=== PATIENT | female | born 1955 | race Caucasian/White ===

== ENCOUNTER 2019-05-12 19:11 | Outpatient (CLI) | payer MEDICARE, SELFPAY ==
[2019-05-12 20:02] LABS: Basophils # 0.1 10^3/uL (0.0-0.1); Basophils % 0.6 %; Eosinophils # 0.3 10^3/uL (0.0-0.8); Eosinophils % 3.6 %; Hematocrit 38.1 % (37.0-47.0); Hemoglobin 12.4 g/dL (11.5-15.3); Lymphocytes # 1.7 10^3/uL (0.8-4.8); Lymphocytes % 20.3 %; Mean Corpuscular HGB Conc 32.5 g/dL (30.0-36.0); Mean Corpuscular Hemoglobin 29.7 pg (28.0-34.0); Mean Corpuscular Volume 91.1 fL (81-99); Mean Platelet Volume 10.7 fL (7.4-10.4); Monocytes # 0.7 10^3/uL (0.2-0.9); Monocytes % 8.2 %; Neutrophils # 5.8 10^3/uL (1.8-7.7); Neutrophils % 67.1 %; Nucleated Red Blood Cells % 0 %; Platelet Count 264 10^3/cmm (130-400); Red Blood Count 4.18 10^6/uL (4.1-5.3); Red Cell Distribution Width 12.8 % (12.1-15.1); White Blood Count 8.6 10^3/uL (4.0-10.0)
[2019-05-12 20:05] LABS: Alanine Aminotransferase 17 U/L (0-33); Albumin Level 4.7 g/dL (3.5-5.2); Alkaline Phosphatase 129 IU/L (35-105); Anion Gap 19.7 (5-19); Aspartate Amino Transferase 20 U/L (0-32); Blood Urea Nitrogen 12 mg/dL (8-23); C Reactive Protein 6.5 mg/L (0.0-4.9); Calcium 10.6 mg/Dl (8.8-10.2); Carbon Dioxide 25 mmol/L (22-29); Chloride 97 mmol/L (98-107); Creatine Phosphokinase 57 U/L (26-192); Globulin 2.7 g/dL (1.3-4.6); Glucose 109 mg/dL (74-106); Potassium 4.7 mmol/L (3.5-5.1); Sodium 137 mmol/L (136-145); Total Bilirubin 0.3 mg/dL (0.15-1.2); Total Protein 7.4 g/dL (6.6-8.7)
[2019-05-12 20:56] LABS: Erythrocyte Sedimentation Rate 27 mm/hr (0-15)
== END 2019-05-12 19:12 | disposition home or self-care (01) ==
LOC: LAB 19:15
PROVIDERS: Family Provider Family Medicine; PCP Family Medicine; Visit Provider Orthopaedic Surgery Hand Surgery
DX: M86.641 Other chronic osteomyelitis, right hand (principal)
CPT/HCPCS: 80053; 82550; 85025; 85651; 86140

== ENCOUNTER → 2019-06-11 15:54 | Outpatient (BNVA) | payer MEDICARE, SELFPAY | PROVIDERS: Family Provider Family Medicine; PCP Family Medicine; Visit Provider Social Worker | DX: F33.2 Major depressive disorder, recurrent severe without psychotic features (principal); F43.12 Post-traumatic stress disorder, chronic | CPT/HCPCS: 90834 ==

== ENCOUNTER 2019-06-18 06:00 | Outpatient (RCR) | payer MEDICARE, SELFPAY | END 2019-07-04 23:59 | disposition home or self-care (01) | LOC: GPT 06:00 | PROVIDERS: Family Provider Family Medicine; PCP Family Medicine; Referring Provider Family Medicine; Visit Provider Family Medicine | DX: M79.669 Pain in unspecified lower leg (principal); M25.669 Stiffness of unspecified knee, not elsewhere classified; R26.89 Other abnormalities of gait and mobility; Z91.81 History of falling | CPT/HCPCS: 97032; 97110; 97140; 97161; 97530 ==

== ENCOUNTER 2019-07-05 06:00 | Outpatient (RCR) | payer MEDICARE, SELFPAY | END 2019-08-04 23:59 | disposition home or self-care (01) | LOC: GPT 06:00 | PROVIDERS: Family Provider Family Medicine; PCP Family Medicine; Referring Provider Family Medicine; Visit Provider Family Medicine | DX: M21.6X1 Other acquired deformities of right foot (principal) | CPT/HCPCS: 97110; 97112; 97116; G0283 ==

== ENCOUNTER → 2019-07-17 11:07 | Outpatient (BNVA) | payer MEDICARE, SELFPAY | PROVIDERS: Family Provider Family Medicine; PCP Family Medicine; Visit Provider Nurse Practitioner | DX: F43.12 Post-traumatic stress disorder, chronic (principal); F41.0 Panic disorder [episodic paroxysmal anxiety]; F41.1 Generalized anxiety disorder | CPT/HCPCS: 99214 ==

== ENCOUNTER 2019-08-31 09:40 | Outpatient (RCR) | payer MEDICARE, SELFPAY | END 2019-09-03 23:59 | disposition home or self-care (01) | LOC: GPT 09:40 | PROVIDERS: Family Provider Family Medicine; PCP Family Medicine; Referring Provider Family Medicine; Visit Provider Family Medicine | DX: M21.6X1 Other acquired deformities of right foot (principal) | CPT/HCPCS: 81000 ==

== ENCOUNTER → 2019-09-02 08:09 | Outpatient (BNVA) | payer MEDICARE, SELFPAY | PROVIDERS: Family Provider Family Medicine; PCP Family Medicine; Visit Provider Nurse Practitioner | DX: F41.0 Panic disorder [episodic paroxysmal anxiety] (principal); F43.12 Post-traumatic stress disorder, chronic | CPT/HCPCS: 99213 ==

== ENCOUNTER 2019-09-21 15:20 | Outpatient (CLI) | payer MEDICARE, SELFPAY ==
--- NOTE | 2019-09-21 15:35 | CT_ITS ---
WS: [id number] CT CHEST WITHOUT INTRAVENOUS CONTRAST HISTORY: INTERSTITIAL LUNG DISEASE TECHNIQUE: Contiguous 5 mm axial imaging performed on the thorax. Coronal and sagittal reformats are submitted. All CT scans at [facility] use at least one of these dose optimization techniq ues: automated exposure control; mA and/or kV adjustment per patient size (includes targeted exams wh ere dose is matched to clinical indication); or iterative reconstruction. CONTRAST: None DLP: 1148.09 mGy-cm. COMPARISON: 07/14/2017 and 04/12/2015 Lungs and central airway: Significant improvement in aeration of both lungs since 07/14/2017. Resolved pleural effusions with improving areas of atelectasis. There is still thin bandlike areas of chronic scarring or atelectasis in the lower lobes bilaterally. Very minimal distal airways interstitial thi ckening. Long-term stability of a 3 mm nodule RIGHT lower lobe, image 37 of series 3. No pneumonia. N o fluid overload. Pleura: Normal. No pleural effusion. Heart and pericardium: Extensive calcification along the mitral annular valve plane. Cardiac chamber size is normal. Mediastinum and eli: No mediastinum or hilar adenopathy. Vessels: Normal size aortic and pulmonary artery. No coronary artery calcifications. Chest wall and lower neck: No soft tissue masses. Upper abdomen: Negative. Osseous structures: Increase in thoracic kyphosis. Anterior contiguous bridging osteophytes throughou t a long segment of the thoracic spine. Lucencies in several of the contiguous vertebral bodies has b een present over multiple prior years and probably related osteopenia and osteophyte formation. CT/CT chest wo con 53215 IMPRESSION: 1. Improved aeration throughout both lungs with resolved pleural effusions sin ce 07/14/2017. 2. Minimal, subsegmental linear scarring or atelectasis in the lower lungs kenji aterally. 3. No honeycombing or significant interstitial thickening or bronchiectasis id entified. 4. Mitral annular calcification.
== END 2019-09-21 15:21 | disposition home or self-care (01) ==
LOC: RADWPI 15:24
PROVIDERS: Family Provider Family Medicine; PCP Family Medicine; Visit Provider Family Medicine
DX: J84.9 Interstitial pulmonary disease, unspecified (principal)
CPT/HCPCS: 71250

== ENCOUNTER → 2019-09-23 13:50 | Outpatient (BNVA) | payer MEDICARE, SELFPAY | PROVIDERS: PCP Family Medicine; Visit Provider Family Medicine | DX: E11.42 Type 2 diabetes mellitus with diabetic polyneuropathy (principal) | CPT/HCPCS: 83036 ==

== ENCOUNTER → 2019-11-16 08:48 | Outpatient (BNVA) | payer MEDICARE, SELFPAY | PROVIDERS: PCP Family Medicine; Visit Provider Internal Medicine Cardiovascular Disease | DX: I27.20 Pulmonary hypertension, unspecified (principal) | CPT/HCPCS: 80048; 85025 ==

== ENCOUNTER 2019-11-19 | Day surgery (SDC) | payer MEDICARE, SELFPAY | END 2019-11-19 23:00 | disposition home or self-care (01) | LOC: CCL 12-28 08:54 | PROVIDERS: PCP Family Medicine; Visit Provider Internal Medicine Cardiovascular Disease | DX: R50.9 Fever, unspecified (principal); R06.02 Shortness of breath; E66.01 Morbid (severe) obesity due to excess calories | CPT/HCPCS: 87400 ==

== ENCOUNTER → 2019-12-16 11:06 | Outpatient (BNVA) | payer MEDICARE, SELFPAY | PROVIDERS: PCP Family Medicine; Visit Provider Internal Medicine | DX: R06.02 Shortness of breath (principal); I27.20 Pulmonary hypertension, unspecified | CPT/HCPCS: 87635 ==

== ENCOUNTER 2019-12-21 08:55 | Day surgery (SDC) | payer MEDICARE, SELFPAY ==
[2019-12-21] VITALS (22 sets, daily range): BP systolic 135–168; BP diastolic 74–103; PULSE 58–73; RESP 11–23; TEMP 36.4; O2SAT 92–98; BMI 56.3
--- NOTE | 2019-12-21 10:00 | XACV_ITS ---
Exam Room: [facility] Ht: 163 cm Wt: 141 kg BSA: 2.61 m2 Gender: Female : 1955 Any Known Allergies: Other Exam Priority: Routine Procedure(s): Procedure Description: Diagnostic procedure Procedure Description: Right Heart Catheterization Procedure Description: O2 saturation Diagnostic Cath Status: Elective PCI Status: Elective Conclusions Right heart catheterizationRA mean 24 mmHgRV 67-17 mmHgPA mean 52 mmHgPulmonary capillary wedge pressureCardiac index 1.5Cardiac output 3.57Stroke-volume 57.83No significant shunt or step-up notedSevere pulmonary hypertension with no reversibility. Pressures Phase:Rest RV : 67 mmHg / 17 mmHg / @ 6:47:00 AM PA : 70 mmHg / 35 mmHg ( 52 mmHg ) @ 6:27:00 AM 70 mmHg / 36 mmHg ( 51 mmHg ) @ 6:30:00 AM 68 mmHg / 35 mmHg ( 50 mmHg ) @ 6:39:00 AM 65 mmHg / 31 mmHg ( 46 mmHg ) @ 6:43:00 AM 65 mmHg / 33 mmHg ( 47 mmHg ) @ 6:46:00 AM RA : a wave = v wave = mean = 24 mmHg @ 6:50:00 AM O2 Content Phase:Rest PA : O2 Content O2: 64.5 % @ 6:30:00 AM Saturations Phase:Rest AO : 99 % @ 6:27:00 AM RA : 64 % @ 6:39:00 AM RV : 65 % @ 6:43:00 AM PA : 65 % @ 6:30:00 AM Cardiac Output Phase:Rest Luigi : 4 l/min @ 6:27:00 AM Luigi Cardiac Index: 2 L/min/m2 @ 6:27:00 AM Clinical Evaluation EBL: 5mL-10mL Procedural Details Procedure Consent Obtained. Pre-Procedure Time Out. Identified patient by full name and date of as verbalized by the patient/guarantor. Does the consent match the physician's order: Yes. Accurate & Complete Informed Consent: Yes. Inpatient/Outpatient History & Physical on Chart: Yes. If H&P is completed, is and addenduem needed: No; If yes, is the addendum complete: N/A. Visualize and Verify Site with Patient/Guarantor: N/A. Relevant Radiology Images available: Yes. Pre-op teaching completed and patient verbalized understanding. The risks, benefits, and alternatives of sedation and/or procedure were discussed by physician. The patient agrees to continue. Procedure started. Correct patient, site and procedure confirmed by cath team. Current diagnosis: Shortness of breath. PERRLA. Strong, equal hand scrap piler bilaterally. Lungs clear x 5 lobes. IV Site on Arrival: 20 gauge in the right anticubital. IV Site on Arrival: 20 gauge in the left anticubital. IV Fluids: 0.9% NaCl at KVO. 0 mL infused prior to clinical laboratory medical director. Pre Procedural Pulses: bilateral dorsalis pedis was 2+. Pre Procedural Pulses: bilateral posterior tibial was 2+. Pre Procedural Pulses: bilateral radial was 3+. Oxygen started at 2liters/min via nasal canula. right brachial was prepped with chloroprep then draped in the usual sterile fashion. Physician notified. Baseline sample Acquired. HR: 62 BPM. 20G in the Right AC out. Physician arrived. Physician scrubbed in. Immediate Pre-Procedure Time Out. Correct Patient: Yes; Correct Procedure: Yes; Correct Site: Yes; Correct Patient Position: Yes; Correct Supplies: Yes; Dried Flammable Prep: Yes; Blood Products Available: No;. Equipment: 6F - Radial. ACIST Manifold Kit Model BT 2000. Cardiac Cath Pack. Heparinized Saline (2 units/mL), 1000 mL bag. Venous access obtained. [place] A MON catheter inserted. Oximetry samples were obtained. Normal venous range: 60-85%. Normal arterial range: 95-100%. Pressure measurements obtained. Sheath(s) removed and manual pressure held until hemostasis was achieved. Sterile 4x4 and Op-site applied to the puncture site. No oozing or hematoma noted. Post sheath removal instructions were given and the patient verbalized understanding. Post Procedure: Pulses reassessed and unchanged. PERRLA. Strong, equal hand scrap piler bilaterally. No VTE prophylaxis required. Medication's Wasted: Lidocaine 1% = 18 mL. Medication's Wasted: Heparin = 1000 units. Total IV fluids: 100 mL. Post-op diagnosis: Pulmonary Hypertension. Complications: None. Estimated blood loss: 5mL-10mL. Procedure completed. Vital chart was stopped. Medication's Wasted: Other = Fentanyl 25mcg. Patient transferred by wheelchair to 1st floor. Site: Right Brachial Vein Sheath Size: 6 Fr Hemostasis Success: Unsuccessful Procedure Medications Start: 11:02 AM Stop: 11:02 AM Medication: Fentanyl Amount: 50 mcg Route: I.V. Start: 11:06 AM Stop: 11:06 AM Medication: Versed Amount: 1 mg Route: I.V. Start: 11:22 AM Stop: 11:22 AM Medication: Versed 1 mg and Fentanyl 25 mcg Amount: 1 Route: I.V. Start: 11:36 AM Stop: 11:36 AM Medication: Nitrogylcerin Amount: 2 Sprays Route: S.L. Start: 11:40 AM Stop: 11:40 AM Medication: Nitrogylcerin Amount: 2 Sprays Route: S.L. Start: 11:43 AM Stop: 11:43 AM Medication: Nitrogylcerin Amount: 2 Sprays Route: S.L. I, the attending physician, have reviewed and verified all procedure medications. Yes, all medications given per verbal order History/Risk Factors Hypertension: Yes Dyslipidemia: Yes Diabetic Therapy: Oral Peripheral Arterial Disease (PAD): No Myocardial Infarction (CA): No Obesity: Yes Renal Disease: No Tobacco Use: Never Prior Interventions PCI: No CABG: No Valve Surgery: No Report Signatures Finalized by:Dulce Oreilly MD on 01/04/2020 7:45:15 PM
--- NOTE | 2019-12-21 12:05 | W.PM.OPSUD ---
Surgery/Procedure H&P Update DATE OF PROCEDURE: December 21, 2019 DATE H&P PERFORMED: 10/01/19 H&P UPDATE INFORMATION: I have examined patient prior to procedure, No changes to prior documentation and Changes to prior documentation as noted here PREOP DIAGNOSIS: Pulmonary hypertension PLANNED PROCEDURE: Operation Date: 12/21/19 10:00 Proposed Procedures p Cardiac Catheterization, hypertention(Right) - Dulce Oreilly MD PATIENT REASSESSED PRIOR TO SEDATION, WITH NO CHANGE NOTED: Yes PHYSICAL EXAM: alert, oriented x 3, clear to auscultation bilaterally and regular rate & rhythm AIRWAY EVAL/ANESTHESIA PLAN: ASA II, Risks, benefits & alternatives of sedation and/or procedure discussed and Patient agrees to continue as planned
--- NOTE | 2019-12-21 12:14 | PC.NURSE ---
patient back to room from procedure alert oriented and dressing to right ac is clean dry and intact. contacted Dr campos for dietary orders instructions for cardiac diet now.
--- NOTE | 2019-12-21 14:52 | PC.NURSE ---
Patient discharged home, discharge instructions given and explained, patient verbalized understanding of all instructions including follow up appointments. Iv dc'd cath intact min bleeding noted dressing placed. Patient assisted to wheel chair and accompanied to private vehicle with all belongings and discharge instructions in hand. Patient alert oriented and in stable condition.
--- NOTE | 2020-01-05 20:26 | W.PM.OPSFHP ---
Same Day Surgery H&P Indication for Procedure/HPI DATE OF PROCEDURE: December 21, 2019 CHIEF COMPLAINT/INDICATIONFOR SURGICAL PROCEDURE: Pulmonary hypertension PREOP DIAGNOSIS: Pulmonary hypertension PLANNED PROCEDRUE: Operation Date: 12/21/19 10:00 Proposed Procedures p Cardiac Catheterization, hypertention(Right) - Dulce Oreilly MD Medications/Allergies* Home Medications Medication Instructions Recorded Confirmed Type albuterol sulfate 2.5 mg INHALATION Q4H PRN 05/17/19 12/31/19 History aspirin 325 mg tablet 325 mg PO DAILY tab 05/17/19 12/31/19 History coenzyme [id number] E 100 mg-100 cap PO DAILY cap 05/17/19 12/31/19 History unit capsule isosorbide mononitrate 30 mg 30 mg PO BID tab 05/17/19 12/31/19 History tablet,extended release 24 hr metformin 500 mg tablet 500 mg PO TID 05/17/19 12/31/19 History metoprolol tartrate 50 mg tablet 50 mg PO BID 05/17/19 12/31/19 History naproxen sodium 220 mg capsule 220 mg PO BID PRN 05/17/19 12/31/19 History prenat.vits,dylan,flg-gufg-rsaix 1 tab PO DAILY tab 05/17/19 12/31/19 History sitagliptin 100 mg tablet 100 mg PO DAILY tab 05/17/19 12/31/19 History Allergies/Adverse Reactions Allergy/AdvReac Type Severity Reaction Status Date / Time meperidine Allergy Unknown Unknown Verified 12/31/19 13:57 amobarbital Allergy Unknown Verified 12/31/19 13:57 hydroxychloroquine Allergy Unknown Verified 12/31/19 13:57 [From Plaquenil] Penicillins Allergy Unknown Verified 12/31/19 13:57 sulfamethoxazole Allergy ALGY-Rash Verified 12/31/19 13:57 [From Bactrim] trimethoprim [From Bactrim] Allergy ALGY-Rash Verified 12/31/19 13:57 aspartame AdvReac Unknown ADR-Headach Verified 12/31/19 13:57 e Pertinent History/Comorbid Conditions* Medical History (Updated 09/03/19 @ 13:00 by Sveta Zhang NP) Anemia Anxiety disorder Bilateral leg cramps CAD (coronary artery disease) Cardiac arrhythmia Chest pain CHF (congestive heart failure) Diabetes Diabetic polyneuropathy Diastolic dysfunction Enrolled in chronic care management GERD (gastroesophageal reflux disease) Hiatal hernia HTN (hypertension) Hx MRSA infection Hyperlipidemia Interstitial lung disease Morbid obesity Myalgia Panic disorder Post-traumatic stress disorder, chronic Pulmonary hypertension Restless leg syndrome Rheumatoid arthritis Shortness of breath Sleep apnea TIA (transient ischemic attack) Surgical History (Updated 07/07/19 @ 11:07 by Nikki Bray MD) S/P appendectomy S/P knee surgery Multiple S/P tubal ligation Family History (Updated 05/17/19 @ 22:06 by Glory Sam RN) Father, Age 93 - CHF Mother, age 91 Diabetes Mother Grandmother Maternal Heart disease Mother Father Cancer Mother Breast, cervical, lung Social History Smoking and tobacco status: never smoked Alcohol intake: current Alcohol intake frequency: holidays/special occasions only Pertinent Exam Findings alert, oriented x 3, clear to auscultation bilaterally and regular rate & rhythm Recommendations Surgery/Procedure today Coding Level of Care Code Acute Preservative Filler Machine Operator for Shaun Ocampo
== END 2019-12-21 14:55 | disposition home or self-care (01) ==
LOC: CCL 09:01 → CSU 09:14
PROVIDERS: PCP Family Medicine; Visit Provider Internal Medicine Cardiovascular Disease
DX: I27.20 Pulmonary hypertension, unspecified (principal); E78.5 Hyperlipidemia, unspecified; I25.10 Atherosclerotic heart disease of native coronary artery without angina pectoris; F41.9 Anxiety disorder, unspecified; I11.0 Hypertensive heart disease with heart failure; E11.42 Type 2 diabetes mellitus with diabetic polyneuropathy; I50.9 Heart failure, unspecified; K21.9 Gastro-esophageal reflux disease without esophagitis; F43.12 Post-traumatic stress disorder, chronic; G25.81 Restless legs syndrome; M06.9 Rheumatoid arthritis, unspecified; Z86.73 Personal history of transient ischemic attack (TIA), and cerebral infarction without residual deficits; Z79.84 Long term (current) use of oral hypoglycemic drugs; Z79.82 Long term (current) use of aspirin; Z79.52 Long term (current) use of systemic steroids; Z79.899 Other long term (current) drug therapy
CPT/HCPCS: 12345; 93451; C1751; C1769; C1894; J1644; J2250; J3010; J7030

== ENCOUNTER → 2019-12-31 14:58 | Outpatient (BNVA) | payer MEDICARE, SELFPAY | PROVIDERS: PCP Family Medicine; Visit Provider Nurse Practitioner Family | DX: I27.20 Pulmonary hypertension, unspecified (principal) | CPT/HCPCS: 80048 ==

== ENCOUNTER → 2020-02-09 16:06 | Outpatient (BNVA) | payer MEDICARE, SELFPAY | PROVIDERS: PCP Family Medicine; Visit Provider Nurse Practitioner Family | DX: Z20.828 Contact with and (suspected) exposure to other viral communicable diseases (principal); R06.02 Shortness of breath; R50.9 Fever, unspecified; R35.0 Frequency of micturition | CPT/HCPCS: 81000; 87635 ==

== ENCOUNTER → 2020-02-17 09:50 | Outpatient (BNVA) | payer MEDICARE, SELFPAY | PROVIDERS: PCP Family Medicine; Visit Provider Family Medicine | DX: E11.9 Type 2 diabetes mellitus without complications (principal) | CPT/HCPCS: 83036 ==

== ENCOUNTER → 2020-03-10 09:44 | Outpatient (BNVA) | payer MEDICARE, SELFPAY | PROVIDERS: PCP Family Medicine; Visit Provider Internal Medicine Cardiovascular Disease | DX: Z11.59 Encounter for screening for other viral diseases (principal); I27.20 Pulmonary hypertension, unspecified; R06.02 Shortness of breath | CPT/HCPCS: 87635 ==

== ENCOUNTER 2020-03-14 10:34 | Outpatient (CLI) | payer MEDICARE, SELFPAY ==
--- NOTE | 2020-03-14 11:15 | XR_ITS ---
WS: [id number] XR chest 2V* [id number] REASON FOR EXAM: Shortness of breath FINDINGS: The chest is unchanged compared to previous examination of 02/03/2019. Mild tortuosity of the thoracic aorta. Heart size is normal. Calcified granulomatous disease in both hemithoraces. No active pulmonary parenchymal or pleural dise ase. Mild changes of degenerative spondylosis in the mid thoracic spine. Multiple old healed rib fractures on the left. Laxity in the clinical humeral joints. XR/XR chest 2V* [id number] IMPRESSION: No acute abnormality.
--- NOTE | 2020-03-14 12:00 | NM_ITS ---
WS: [id number] NUCLEAR MEDICINE LUNG VENTILATION AND PERFUSION CLINICAL INFORMATION: phtn TECHNIQUE: Ventilation/perfusion lung scan with 32.1 mCi technetium 99m DTPA and 4.8 mCi technetium 9 9m MAA. COMPARISON: None. FINDINGS: Normal symmetric radiotracer uptake on the perfusion weighted images. Central radiotracer deposition on the ventilatory imaging consistent with chronic emphysematous changes as seen on the radiograph. N o mismatched ventilation/perfusion defects to suggest pulmonary embolus. No other significant finding s. NM/NM pul vent and perfus* [id number] IMPRESSION: 1. Low probability for pulmonary embolus.
== END 2020-03-14 10:35 | disposition home or self-care (01) ==
LOC: NM 10:38
PROVIDERS: PCP Family Medicine; Visit Provider Internal Medicine Cardiovascular Disease
DX: I27.20 Pulmonary hypertension, unspecified (principal); R06.02 Shortness of breath
CPT/HCPCS: 71046; 78014; A9540; A9567

== ENCOUNTER 2020-03-15 09:13 | Outpatient (CLI) | payer MEDICARE, SELFPAY ==
--- NOTE | 2020-03-15 10:09 | PC.RESP ---
Patient unable to do 6 minute walk at this time due to a sore foot.
--- NOTE | 2020-03-15 10:31 | PFTS_ITS ---
Date of Study:03/15/20 Date of Dictation: MECHANICS: Forced vital capacity (FVC) is normal. Forced expiratory volume in one second (FEV1) is normal. FEV1/FVC is normal. FLOW VOLUME LOOP: Normal. LUNG VOLUMES: Total lung capacity (TLC) is normal. Residual volume (RV) is normal. DIFFUSING CAPACITY FOR CARBON MONOXIDE: Normal. INTERPRETATION: The pulmonary function tests are normal. The lung volumes are normal. Gas exchange (DLCO) is normal. MTDD
== END 2020-03-15 09:14 | disposition home or self-care (01) ==
LOC: RT 09:19
PROVIDERS: PCP Family Medicine; Visit Provider Internal Medicine Cardiovascular Disease
DX: I27.20 Pulmonary hypertension, unspecified (principal); R06.02 Shortness of breath
CPT/HCPCS: 94010; 94726; 94729

== ENCOUNTER → 2020-04-05 09:00 | Outpatient (BNVA) | payer MEDICARE, SELFPAY | PROVIDERS: PCP Family Medicine; Visit Provider Internal Medicine Medical Oncology | DX: D50.8 Other iron deficiency anemias (principal) | CPT/HCPCS: 80053; 82728; 83550; 85025 ==

== ENCOUNTER → 2020-04-12 13:27 | Outpatient (BNVA) | payer MEDICARE, SELFPAY | PROVIDERS: PCP Family Medicine; Visit Provider Family Medicine | DX: S62.609A Fracture of unspecified phalanx of unspecified finger, initial encounter for closed fracture (principal); W19.XXXA Unspecified fall, initial encounter | CPT/HCPCS: 73130 ==

== ENCOUNTER 2020-04-15 12:13 | Outpatient (CLI) | payer MEDICARE, SELFPAY | END 2020-04-15 12:14 | disposition home or self-care (01) | LOC: SPT 12:15 | PROVIDERS: PCP Family Medicine; Visit Provider Orthopaedic Surgery | DX: Z46.89 Encounter for fitting and adjustment of other specified devices (principal); M21.6X1 Other acquired deformities of right foot | CPT/HCPCS: 97760; L3984 ==

== ENCOUNTER 2020-04-25 09:39 | Outpatient (CLI) | payer MEDICARE, SELFPAY ==
--- NOTE | 2020-04-25 10:45 | CT_ITS ---
WS: [id number] CT CHEST TECHNIQUE: Noncontrast CT of the chest with coronal and sagittal reformatted images. CLINICAL INFORMATION: R93.89 - Abnormal findings on diagnostic imaging of other specified body struct ures COMPARISON: CT chest September 21, 2019 DLP: 744.[address] scans at [facility] use at least one of these dose optimization techniques: automat ed exposure control; mA and/or kV adjustment per patient size (includes targeted exams where dose is matched to clinical indication); or iterative reconstruction. FINDINGS: Both lungs are well aerated. No acute pulmonary infiltrates. Subsegmental atelectasis in the right gr eater than left lower lobes. No acute pulmonary infiltrates. No suspicious pulmonary parenchymal opac ities. No focal consolidation or pleural fluid. No mediastinal or hilar lymphadenopathy. Mitral annul ar calcification. No axillary lymphadenopathy. Adrenal glands are normal. A few chronic rib fractures with callus formation.Moderate thoracic kyphos is. Chronic ankylosis thoracic spine. CT/CT chest wo con [id number] IMPRESSION: 1. Subsegmental atelectasis in the lung bases. No acute pulmonary infiltrates. 2. No mediastinal or hilar lymphadenopathy lymphadenopathy. 3. Mitral annular calcification. 4. Thoracic curve convex right with thoracic kyphosis. Chronic ankylosis thora cic spine.
== END 2020-04-25 09:40 | disposition home or self-care (01) ==
LOC: RADWPI 09:43
PROVIDERS: PCP Family Medicine; Visit Provider Family Medicine
DX: R93.89 Abnormal findings on diagnostic imaging of other specified body structures (principal); R91.1 Solitary pulmonary nodule; J98.11 Atelectasis; M40.294 Other kyphosis, thoracic region
CPT/HCPCS: 71250

== ENCOUNTER → 2020-04-27 08:42 | Outpatient (BNVA) | payer MEDICARE, SELFPAY | PROVIDERS: PCP Family Medicine; Visit Provider Family Medicine | DX: Z20.828 Contact with and (suspected) exposure to other viral communicable diseases (principal) | CPT/HCPCS: 87635 ==

== ENCOUNTER → 2020-05-17 14:33 | Outpatient (BNVA) | payer MEDICARE, SELFPAY | PROVIDERS: PCP Family Medicine; Visit Provider Orthopaedic Surgery | DX: S62.605D Fracture of unspecified phalanx of left ring finger, subsequent encounter for fracture with routine healing (principal); S62.607D Fracture of unspecified phalanx of left little finger, subsequent encounter for fracture with routine healing; X58.XXXD Exposure to other specified factors, subsequent encounter | CPT/HCPCS: 73130 ==

== ENCOUNTER → 2020-05-18 14:33 | Outpatient (BNVA) | payer MEDICARE, SELFPAY | PROVIDERS: PCP Family Medicine; Visit Provider Family Medicine | DX: S46.011A Strain of muscle(s) and tendon(s) of the rotator cuff of right shoulder, initial encounter (principal); X58.XXXA Exposure to other specified factors, initial encounter | CPT/HCPCS: 73030 ==

== ENCOUNTER 2020-05-24 06:00 | Outpatient (RCR) | payer MEDICARE, SELFPAY | END 2020-06-05 23:59 | disposition home or self-care (01) | LOC: GOT 06:00 | PROVIDERS: PCP Family Medicine; Referring Provider Orthopaedic Surgery; Visit Provider Orthopaedic Surgery | DX: M25.512 Pain in left shoulder (principal); S62.605D Fracture of unspecified phalanx of left ring finger, subsequent encounter for fracture with routine healing; S62.607D Fracture of unspecified phalanx of left little finger, subsequent encounter for fracture with routine healing | CPT/HCPCS: 97110; 97140; 97166 ==

== ENCOUNTER 2020-05-27 11:55 | Outpatient (CLI) | payer MEDICARE, SELFPAY ==
--- NOTE | 2020-05-27 16:45 | MR_ITS ---
WS: [id number] MRI LEFT SHOULDER HISTORY: M25.519 - Pain in unspecified shoulder COMPARISON: 09/03/2018 TECHNIQUE: Multiplanar sequences of the shoulder joint are submitted. Cortical defect in the posterior superior humeral head. This is similar to the prior study from 019 and probably from an old fracture or dislocation. There is a small amount of residual edema at th e cortical defect. There is very mild fraying along the articular surface of the supraspinatus tendon and thickening of the distal tendon. Consistent with tendinopathy. Cannot confirm tear. No tendon re traction or edema. There is very mild atrophy of the supraspinatus muscle. Small amount of fluid in t he subscapularis recess. Moderate AC joint hypertrophy and degenerative changes involving the distal clavicle. There is increa sed T2 signal along the AC ligament. No os acromion. Biceps tendon is in normal position. Humeral hea d is high riding from the glenoid. No labral tear is identified. Suspect small loose bodies in the reina int effusion superior to the labrum. MR/MR shoulder LT wo con* [id number] IMPRESSION: 1. Cortical concave defect in the posterior lateral humeral head. This is in t he area of the previously described fracture. No acute fracture. This may be Hi ll-Sachs lesion. No labral abnormality. 2. Mildly high riding humeral head. 3. Tendinopathy and fraying of the distal supraspinatus tendon with no definit e tear. 4. Suspect small loose bodies in the joint fluid superior to the labrum. 5. Mild AC joint arthritis with mild AC ligament sprain.
== END 2020-05-27 11:56 | disposition home or self-care (01) ==
PROVIDERS: PCP Family Medicine; Visit Provider Family Medicine
DX: M13.812 Other specified arthritis, left shoulder (principal); S43.52XA Sprain of left acromioclavicular joint, initial encounter; X58.XXXA Exposure to other specified factors, initial encounter; R06.02 Shortness of breath; I50.9 Heart failure, unspecified
CPT/HCPCS: 73221; 80048; 83735; 83880

== ENCOUNTER 2020-06-06 06:00 | Outpatient (RCR) | payer MEDICARE, SELFPAY | END 2020-07-03 23:59 | disposition home or self-care (01) | LOC: GOT 06:00 | PROVIDERS: PCP Family Medicine; Referring Provider Orthopaedic Surgery; Visit Provider Orthopaedic Surgery | DX: S62.609D Fracture of unspecified phalanx of unspecified finger, subsequent encounter for fracture with routine healing (principal) | CPT/HCPCS: 73630; 97110; 97140 ==

== ENCOUNTER 2020-07-04 06:00 | Outpatient (RCR) | payer MEDICARE, SELFPAY | END 2020-08-03 23:59 | disposition home or self-care (01) | LOC: GOT 06:00 | PROVIDERS: PCP Family Medicine; Referring Provider Orthopaedic Surgery; Visit Provider Orthopaedic Surgery | DX: S62.605D Fracture of unspecified phalanx of left ring finger, subsequent encounter for fracture with routine healing (principal); S62.607D Fracture of unspecified phalanx of left little finger, subsequent encounter for fracture with routine healing; M25.512 Pain in left shoulder; X58.XXXD Exposure to other specified factors, subsequent encounter | CPT/HCPCS: 97110; 97140 ==

== ENCOUNTER → 2020-07-12 13:56 | Outpatient (BNVA) | payer MEDICARE, SELFPAY | PROVIDERS: PCP Family Medicine; Visit Provider Orthopaedic Surgery | DX: S62.605D Fracture of unspecified phalanx of left ring finger, subsequent encounter for fracture with routine healing (principal); S62.607D Fracture of unspecified phalanx of left little finger, subsequent encounter for fracture with routine healing; X58.XXXD Exposure to other specified factors, subsequent encounter | CPT/HCPCS: 73130 ==

== ENCOUNTER 2020-08-04 06:00 | Outpatient (RCR) | payer MEDICARE, SELFPAY | END 2020-09-02 23:59 | disposition home or self-care (01) | LOC: GOT 06:00 | PROVIDERS: PCP Family Medicine; Referring Provider Orthopaedic Surgery; Visit Provider Orthopaedic Surgery | DX: M25.512 Pain in left shoulder (principal); S62.605D Fracture of unspecified phalanx of left ring finger, subsequent encounter for fracture with routine healing; S62.607D Fracture of unspecified phalanx of left little finger, subsequent encounter for fracture with routine healing | CPT/HCPCS: 97110; 97140 ==

== ENCOUNTER → 2020-08-23 09:13 | Outpatient (BNVA) | payer MEDICARE, SELFPAY | PROVIDERS: PCP Family Medicine; Visit Provider Family Medicine | DX: E11.9 Type 2 diabetes mellitus without complications (principal) | CPT/HCPCS: 80061; 83036 ==

== ENCOUNTER → 2020-11-28 10:06 | Outpatient (BNVA) | payer MEDICARE, SELFPAY | PROVIDERS: PCP Family Medicine; Visit Provider Internal Medicine Cardiovascular Disease | DX: I10 Essential (primary) hypertension (principal); I50.9 Heart failure, unspecified; R06.02 Shortness of breath | CPT/HCPCS: 83735; 83880 ==

== ENCOUNTER → 2020-11-30 11:39 | Outpatient (BNVA) | payer MEDICARE, SELFPAY | PROVIDERS: PCP Family Medicine; Visit Provider Internal Medicine Cardiovascular Disease | DX: I10 Essential (primary) hypertension (principal); I50.9 Heart failure, unspecified; R06.02 Shortness of breath | CPT/HCPCS: 80053 ==

== ENCOUNTER → 2021-01-03 11:50 | Outpatient (BNVA) | payer MEDICARE, SELFPAY | PROVIDERS: PCP Family Medicine; Visit Provider Internal Medicine Cardiovascular Disease | DX: I50.9 Heart failure, unspecified (principal); I48.19 Other persistent atrial fibrillation; I25.119 Atherosclerotic heart disease of native coronary artery with unspecified angina pectoris; I27.20 Pulmonary hypertension, unspecified; I50.32 Chronic diastolic (congestive) heart failure; I10 Essential (primary) hypertension; E78.2 Mixed hyperlipidemia; E11.59 Type 2 diabetes mellitus with other circulatory complications; G47.33 Obstructive sleep apnea (adult) (pediatric) | CPT/HCPCS: 80048; 84443; 85025 ==

== ENCOUNTER 2021-02-06 16:51 | Outpatient (CLI) | payer MEDICARE, SELFPAY ==
--- NOTE | 2021-02-06 17:06 | XRR_ITS ---
PROCEDURE INFORMATION: Exam: XR Chest Exam date and time: 02/06/2021 5:06 PM Age: 65 years old Clinical indication: Dyspnea; Additional info: I50.9 - heart failure, unspecified TECHNIQUE: Imaging protocol: XR of the chest. Views: 2 views. COMPARISON: CT chest con [id number] 04/25/2020 9:51 AM FINDINGS: Lungs: Hyperaerated lungs consistent with mild COPD . Pleural spaces: Unremarkable. No pleural effusion. No pneumothorax. Heart/Mediastinum: Unremarkable. No cardiomegaly. Bones/joints: Unremarkable. XR/XR chest 2V* [id number] IMPRESSION: Hyperaerated lungs consistent with mild COPD . Radiation Dose CTDIVOL = (mGy): DLP = (mGy-cm)
== END 2021-02-06 16:52 | disposition home or self-care (01) ==
PROVIDERS: PCP Family Medicine; Visit Provider Internal Medicine Cardiovascular Disease
DX: I50.32 Chronic diastolic (congestive) heart failure (principal); R06.02 Shortness of breath; I25.119 Atherosclerotic heart disease of native coronary artery with unspecified angina pectoris
CPT/HCPCS: 71046; 80053; 83735; 83880; 85025

== ENCOUNTER → 2021-02-27 14:59 | Outpatient (BNVA) | payer MEDICARE, SELFPAY | PROVIDERS: PCP Family Medicine; Visit Provider Nurse Practitioner Family | DX: E11.59 Type 2 diabetes mellitus with other circulatory complications (principal) | CPT/HCPCS: 83036 ==

== ENCOUNTER 2021-03-06 22:31 | Emergency (ER) | payer MEDICARE, SELFPAY ==
[2021-03-06 22:33] VITALS: BP 129/65; PULSE 112; RESP 22; TEMP 36.4; O2SAT 100; BMI 51.5
--- NOTE | 2021-03-06 22:34 | XRR_ITS ---
PROCEDURE INFORMATION: Exam: XR Chest Exam date and time: 03/06/2021 10:34 PM Age: 65 years old Clinical indication: Sternal or substernal pain; Additional info: Cp TECHNIQUE: Imaging protocol: XR of the chest. Views: 1 view. COMPARISON: CR XR chest 2V* [id number] 02/06/2021 5:10 PM FINDINGS: Lungs: Mild right perihilar and right infrahilar pneumonia. Pleural spaces: See Heart/Mediastinum finding. Heart/Mediastinum: Mild globular cardiomegaly consistent with 4-chamber enlargment and/or pericardial effusion. Bones/joints: Unremarkable. XR/XR chest 1V portable [id number] IMPRESSION: 1. Mild globular cardiomegaly consistent with 4-chamber enlargment and/or pericardial effusion. 2. Mild right perihilar and right infrahilar pneumonia. Radiation Dose CTDIVOL = (mGy): DLP = (mGy-cm)
--- NOTE | 2021-03-06 22:34 | ECG_ITS ---
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 Measurements Intervals [place] Rate: 101 P: AR: QRS: -40 QRSD: 84 T: 25 QT: 328 QTc: 426 Interpretive Statements ATRIAL FIBRILLATION WITH RAPID VENTRICULAR RESPONSE LEFT AXIS DEVIATION [QRS AXIS < -30] Compared to ECG 07/14/2017 23:59:26 Left-axis deviation now present Sinus rhythm no longer present Electronically Signed On 03-07-2021 22:07:14 CDT by Nikki Bray M.D. [email or web address]
--- NOTE | 2021-03-06 22:38 | W.ED.CHESTPA ---
HPI - Chest Pain General: Chief Complaint: Chest Pain Stated Complaint: CP Time Seen by Provider: 03/06/21 22:32 Source: patient and EMS Mode of arrival: EMS Limitations: no limitations History of Present Illness: HPI narrative: 65-year-old female who states that she been having chest pain also palpitations of the day she does have a history of pulmonary hypertension along with A. fib sees Dr. Ding. States her pain was sharp in nature and center of her chest had some dyspnea patient was given nitro aspirin her pain is improving she denies any vomiting or diarrhea. Associated symptoms: Reports palpitations; Deny abdominal pain, dyspnea, fever(s), nausea or vomiting Review of Systems Const: Denies: fever(s), chills, body aches or change in appetite Eyes: Denies: blurry vision or eye discomfort ENMT: Denies: throat pain or dental pain Card: Reports: chest pain, palpitations and irregular heart rhythm Resp: Denies: dyspnea GI: Denies: abdominal pain, nausea, vomiting or diarrhea : Denies: dysuria Musc: Denies: neck pain or back pain Skin/Breast: Denies: rash Neuro: Denies: headache(s) Psych: Denies: depression Pantera/Lymph: Denies: easy bruising All/Imm: Denies: urticaria PFSH ED PFSH: Medical History Anemia Anxiety disorder Bilateral leg cramps CAD (coronary artery disease) Cardiac arrhythmia Chest pain CHF (congestive heart failure) CHF (congestive heart failure), NYHA class III Diabetes Diabetic polyneuropathy Diastolic dysfunction Enrolled in chronic care management GERD (gastroesophageal reflux disease) Hiatal hernia History of nonmelanoma skin cancer HTN (hypertension) Hx MRSA infection Hyperlipidemia Interstitial lung disease Morbid obesity Myalgia Panic disorder Post-traumatic stress disorder, chronic Pulmonary hypertension Restless leg syndrome Rheumatoid arthritis Shortness of breath Sleep apnea TIA (transient ischemic attack) Surgical History S/P appendectomy S/P knee surgery Multiple S/P tubal ligation Family History Mother , age 91 Heart disease Diabetes Cancer Breast, cervical, lung Father , Age 93 - CHF Heart disease Grandmother Diabetes Maternal Social History Smoking and tobacco status: never smoked Alcohol intake: current Alcohol intake frequency: holidays/special occasions only Physical Exam Const: COMMON NORMALS: no acute distress, patient oriented x3 and healthy appearing HENMT: COMMON NORMALS: normocephalic and atraumatic HEAD & SCALP: normocephalic and atraumatic Eye: COMMON NORMALS: Equal, round and reactive pupils present and EOMs intact bilaterally PUPIL: Yes Equal, round and reactive pupils present Neck/C-Spine: COMMON NORMALS: full ROM and supple Chest: COMMONS NORMALS: normal inspection of the chest and normal palpation of entire chest wall Resp: COMMON NORMALS: normal respiratory effort, No retractions, No use of accessory muscles and clear to auscultation bilaterally AUSCULTATION: clear to auscultation bilaterally Cardio: COMMON NORMALS: No murmurs present (Cardio) RATE: tachycardic RHYTHM: abnormal rhythm irregularly irregular GI: COMMON NORMALS: Normal to inspection, nondistended, normoactive bowel sounds present, Soft to palpation, non-tender and no masses PALPATION: Yes Soft to palpation Extremity: COMMON NORMALS: normal to inspection and full ROM Neuro: COMMON NORMALS: patient oriented x3, moves all extremities and no focal motor deficits Psych: COMMON NORMALS: mental status grossly normal, Normal thought process present and cooperative THOUGHT PROCESS: Normal thought process present Skin: COMMON NORMALS: no rashes or lesions noted and no wounds GENERAL SKIN EXAM: no rashes or lesions noted Course Vital Signs: Vital signs: Vital Signs Temperature 97.6 F 03/06/21 22:33 Pulse Rate 102 H 03/06/21 23:01 Respiratory Rate 18 03/06/21 23:01 Blood Pressure 133/89 03/06/21 23:01 Pulse Oximetry 99 03/06/21 23:01 MDM - Chest Pain MDM Narrative: Medical decision making narrative: Patient presents here with chest pains atypical in nature her initial repeat troponins are negative CTA of her chest is negative as well with no signs of pneumonia or pulmonary embolism her heart rates improved as well she is to follow-up with Dr. Ding in 2 to 5 days return if worsening she understands agrees to plan. Lab Data: Labs: Lab Results 03/06/21 03/06/21 03/06/21 22:47 22:47 22:47 WBC 10.5 10^3/uL H 10 ^3/uL (4.0-10.0) RBC 4.47 10^6/uL 10^6 /uL (4.1-5.3) Hgb 13.5 g/dL g/dL (11.5-15.3) Hct 40.7 % % (37.0-47.0) MCV 91.1 fl fl (81-99) MCH 30.2 pg pg (28.0-34.0) MCHC 33.2 g/dL g/dL (30.0-36.0) RDW 14.0 % % (12.1-15.1) Plt Count 374 10^3/cmm 10^3 /cmm (130-400) MPV 10.2 fL fL (7.4-10.4) Neut % (Auto) 55.3 % % Lymph % (Auto) 31.5 % % Glasscock % (Auto) 9.3 % % Eos % (Auto) 2.8 % % Baso % (Auto) 0.7 % % Neut # (Auto) 5.81 10^3/uL 10^3 /uL (1.8-7.7) Lymph # (Auto) 3.3 10^3/uL 10^3/ uL (0.8-4.8) Glasscock # (Auto) 1.0 10^3/uL H 10^ 3/uL (0.2-0.9) Eos # (Auto) 0.3 10^3/uL 10^3/ uL (0.0-0.8) Baso # (Auto) 0.1 10^3/uL 10^3/ uL (0.0-0.1) Nucleated RBC % (a uto) 0 % % Nucleated RBCs # 0.0 /100WBC /100W BC PT 16.80 SECONDS H S ECONDS (12.1-14.9) INR 1.32 H (0.8-1.2) Sodium 136 mmol/L mmol/L (136-145) Potassium 3.6 mmol/L mmol/L (3.5-5.1) Chloride 96 mmol/L L mmol/ L (98-107) Carbon Dioxide 27 mmol/L mmol/L (22-29) Anion Gap 16.6 (5-19) BUN 16 mg/dL mg/dL (8-23) Creatinine 0.8 mg/dL mg/dL (0.5-0.9) GFR Calculation 71.5 mL/min L mL/ min (90-130) Glucose 132 mg/dL H mg/dL (65-115) Calculated Osmolal ity 285 mOsm/kg mOsm/ kg (285-295) Calcium 10.3 mg/dL mg/dL (8.5-10.5) Total Bilirubin 0.3 mg/dL mg/dL (0.15-1.2) AST 14 U/L U/L (0-32) ALT 18 U/L U/L (0-33) Alkaline Phosphata se 109 IU/L H IU/L (35-105) Troponin T Baselin e Troponin T 120 Min margo Delta Troponin T Total Protein 6.5 g/dL L g/dL (6.6-8.7) Albumin 4.0 g/dL g/dL (3.5-5.2) Globulin 2.5 g/dL g/dL (1.3-4.6) 03/06/21 03/07/21 22:47 00:54 WBC RBC Hgb Hct MCV MCH MCHC RDW Plt Count MPV Neut % (Auto) Lymph % (Auto) Glasscock % (Auto) Eos % (Auto) Baso % (Auto) Neut # (Auto) Lymph # (Auto) Glasscock # (Auto) Eos # (Auto) Baso # (Auto) Nucleated RBC % (a uto) Nucleated RBCs # PT INR Sodium Potassium Chloride Carbon Dioxide Anion Gap BUN Creatinine GFR Calculation Glucose Calculated Osmolal ity Calcium Total Bilirubin AST ALT Alkaline Phosphata se Troponin T Baselin e 11 ng/L H ng/L (0-10) Troponin T 120 Min margo 11.23 ng/L H ng/L (0-10) Delta Troponin T 0.23 ABS# ABS# (0-10) Total Protein Albumin Globulin Imaging Data^: CT Chest: Attestation: I personally reviewed and interpreted this imaging study as follows: Radiologist's impression: [address] [address] [address] Scan Report Signed Patient: Macraena Guardado Unit #: [id number] : 1955 Age/Sex: 65 / F ADM Date: 03/06/21 Loc: ER Room/Bed: Attending Dr: Ordering Provider/Ordering MD: Aaron Parikh MD Date of Service: 03/07/21 Procedure(s): CT angio chest PE protcl [id number] Accession Number(s): [id number] Report Number: [id number] PROCEDURE INFORMATION: Exam: CTA Chest With Contrast Exam date and time: 03/07/2021 12:08 AM Age: 65 years old Clinical indication: Pain; Shortness of breath; Left-sided; Additional info: SOB TECHNIQUE: Imaging protocol: Computed tomographic angiography of the chest with contrast. 3D rendering (Not supervised by radiologist): MIP and/or 3D reconstructed images were created by the technologist. Radiation optimization: All CT scans at this facility use at least one of these dose optimization techniques: automated exposure control; mA and/or kV adjustment per patient size (includes targeted exams where dose is matched to clinical indication); or iterative reconstruction. Contrast material: OMNI 350; Contrast volume: 95 ml; Contrast route: INTRAVENOUS (IV); COMPARISON: CTA Chest-Pulmonary Emb [id number] 07/14/2017 6:14 PM RADIATION DOSE METRICS: Total DLP (mGy-cm): 638.89 FINDINGS: Pulmonary arteries: No pulmonary embolus or aortic dissection. Aorta: See Pulmonary arteries finding. Lungs: Bilateral discoid atelectasis and/or scarring. Pleural spaces: Unremarkable. No pneumothorax. No pleural effusion. Heart: Unremarkable. No cardiomegaly. No pericardial effusion. Lymph nodes: Unremarkable. No enlarged lymph nodes. Bones/joints: Large flowing multilevel hypertrophic vertebral body osteophytes consistent with diffuse idiopathic skeletal hyperostosis (DISH) syndrome. Mild thoracic spondylosis. Soft tissues: Unremarkable. CT/CT angio chest PE protcl [id number] IMPRESSION: No pulmonary embolus or aortic dissection. Radiation Dose CTDIVOL = (mGy): DLP = 638.89 (mGy-cm) Dictated By: Georgi Henderson MD Signed By: Georgi Henderson MD Signed Date/Time: 03/07/21 0047 DD/ 0008 EKG Data^: EKG 1: Attestation: I personally reviewed and interpreted this EKG as follows: EKG interpretation date: 03/06/21 EKG interpretation time: 22:43 Interpretation: afib hr [address] or t wave abnormalities qrs 84 qtc 386 Discharge Plan Discharge Patient Disposition: Home Clinical Impression: Chest pain, Atrial fibrillation Condition: Stable Prescriptions: No Action (DME) blood-glucose meter [Accu-Chek Radha Plus Meter] Misc See Rx Instructions .ROUTE .MEDSUPPLY Qty: 1 RF: 0 (DME) Accu-Chek Radha Plus test strp Strip See Rx Instructions .ROUTE .MEDSUPPLY Qty: 200 RF: 3 mupirocin 2 % ointment 1 applic TOPICAL BID Qty: 22 RF: 0 amlodipine-benazepril 10-20 mg capsule 1 cap PO DAILY Qty: 30 RF: 11 Hold Instructions: Doctor's Order pioglitazone 15 mg tablet See Rx Instructions .ROUTE .COMPLEX Qty: 90 RF: 0 omeprazole 20 mg capsule,delayed release(DR/EC) See Rx Instructions .ROUTE .COMPLEX Qty: 90 RF: 3 Januvia 100 mg tablet 100 mg PO DAILY Qty: 90 RF: 1 metformin 500 mg tablet 500 mg PO TID Qty: 270 RF: 3 ropinirole 0.5 mg tablet 0.5 mg PO TID Qty: 90 RF: 11 fluticasone propionate [Allergy Relief (fluticasone)] 50 mcg/actuation spray,suspension 2 spray intranasal DAILY PRN (Reason: allergy symptoms) Qty: 15.8 RF: 11 cyclobenzaprine 10 mg tablet 10 mg PO DAILY PRN (Reason: muscle spasm) Qty: 30 RF: 0 clindamycin HCl 300 mg capsule 300 mg PO Q6H 10 Days Qty: 40 RF: 0 naproxen sodium [Aleve] 220 mg capsule 220 mg PO BID PRN (Reason: Pain) RF: 0 prenat.vits,dylan,uwk-hmsl-svoce Tablet 1 tab PO DAILY RF: 0 coenzyme D00-ssjzixl E 100-100 mg-unit capsule PO DAILY RF: 0 furosemide 40 mg tablet 80 mg PO .COMPLEX RF: 0 Xarelto 20 mg tablet 20 mg PO DAILY Qty: 90 RF: 2 potassium chloride 10 mEq capsule, extended release See Rx Instructions .ROUTE .COMPLEX Qty: 90 RF: 4 aspirin [Adult Aspirin Regimen] 81 mg tablet,delayed release (DR/EC) 81 mg PO DAILY Qty: 90 RF: 0 isosorbide mononitrate 30 mg tablet extended release 24 hr 30 mg PO DAILY RF: 0 Hold Instructions: Doctor's Order metolazone 5 mg tablet 5 mg PO Q48H Qty: 15 RF: 4 albuterol sulfate 2.5 mg /3 mL (0.083 %) solution for nebulization 2.5 mg INHALATION Q4H PRN (Reason: Shortness Of Breath) Qty: 15 RF: 11 levofloxacin 500 mg tablet 500 mg PO Q24H 10 Days Qty: 10 RF: 0 nitroglycerin 0.4 mg tablet, sublingual 0.4 mg SUBLINGUAL Q5M PRN (Reason: chest pain) Qty: 20 RF: 2 trazodone 50 mg tablet See Rx Instructions PO .QHS Qty: 60 RF: 11 duloxetine [Cymbalta] 60 mg capsule,delayed release(DR/EC) 60 mg PO BID Qty: 60 RF: 11 albuterol sulfate [ProAir HFA] 90 mcg/actuation HFA aerosol inhaler 2 inh inhalation Q6H PRN (Reason: shortness of breath or wheezing) Qty: 8.5 RF: 5 magnesium oxide 400 mg magnesium capsule 400 mg PO .COMPLEX Qty: 32 RF: 4 epinephrine 0.3 mg/0.3 mL auto-injector 0.3 mg IM ONCE Qty: 2 RF: 4 metoprolol tartrate 100 mg tablet 100 mg PO BID Qty: 180 RF: 3 Discharge Orders: Discharge ED (Routine); Ordered 03/07/21 Ordered By: Aaron Parikh Referrals: Yassine Mason DO [Primary Care Provider] - Nikki Bray MD [Physician] - 1-3 days Discharge Diet: Advance as tolerated Discharge Activity: Resume usual activity Patient Instructions: Chest Pain (ED) Coding Level of Care Code ED Bander And Cellophaner Machine for Chg Fwd Exam Comprehensive
[2021-03-06 22:53] LABS: Basophils # 0.1 10^3/uL (0.0-0.1); Basophils % 0.7 %; Eosinophils # 0.3 10^3/uL (0.0-0.8); Eosinophils % 2.8 %; Hematocrit 40.7 % (37.0-47.0); Hemoglobin 13.5 g/dL (11.5-15.3); Lymphocytes # 3.3 10^3/uL (0.8-4.8); Lymphocytes % 31.5 %; Mean Corpuscular HGB Conc 33.2 g/dL (30.0-36.0); Mean Corpuscular Hemoglobin 30.2 pg (28.0-34.0); Mean Corpuscular Volume 91.1 fl (81-99); Mean Platelet Volume 10.2 fL (7.4-10.4); Monocytes % 9.3 %; Neutrophils # 5.81 10^3/uL (1.8-7.7); Neutrophils % 55.3 %; Nucleated Red Blood Cells % 0 %; Platelet Count 374 10^3/cmm (130-400); Red Blood Count 4.47 10^6/uL (4.1-5.3); White Blood Count 10.5 10^3/uL (4.0-10.0)
[2021-03-06] MEDS: ondansetron 2 mg/ML SDV 2 mL 4 MG IVP (22:56)
[2021-03-06 22:57] VITALS: RESP 18; O2SAT 100
[2021-03-06] MEDS: morphine 4 mg/mL SDV 1 mL IVP (22:57)
[2021-03-06 23:01] VITALS: BP 133/89; PULSE 102; RESP 18; O2SAT 99
[2021-03-06 23:08] LABS: INR 1.32 (0.8-1.2)
[2021-03-06 23:11] LABS: Troponin(5th) Baseline 11 ng/L (0-10)
[2021-03-06 23:12] LABS: Alanine Aminotransferase 18 U/L (0-33); Alkaline Phosphatase 109 IU/L (35-105); Anion Gap 16.6 (5-19); Aspartate Amino Transferase 14 U/L (0-32); Blood Urea Nitrogen 16 mg/dL (8-23); Calcium 10.3 mg/dL (8.5-10.5); Carbon Dioxide 27 mmol/L (22-29); Chloride 96 mmol/L (98-107); Globulin 2.5 g/dL (1.3-4.6); Glomerular Filtration Rate 71.5 mL/min (90-130); Glucose 132 mg/dL (65-115); Osmolality Calculated 285 mOsm/kg (285-295); Potassium 3.6 mmol/L (3.5-5.1); Sodium 136 mmol/L (136-145); Total Bilirubin 0.3 mg/dL (0.15-1.2); Total Protein 6.5 g/dL (6.6-8.7)
--- NOTE | 2021-03-07 00:08 | CTR_ITS ---
PROCEDURE INFORMATION: Exam: CTA Chest With Contrast Exam date and time: 03/07/2021 12:08 AM Age: 65 years old Clinical indication: Pain; Shortness of breath; Left-sided; Additional info: SOB TECHNIQUE: Imaging protocol: Computed tomographic angiography of the chest with contrast. 3D rendering (Not supervised by radiologist): MIP and/or 3D reconstructed images were created by the technologist. Radiation optimization: All CT scans at this facility use at least one of these dose optimization techniques: automated exposure control; mA and/or kV adjustment per patient size (includes targeted exams where dose is matched to clinical indication); or iterative reconstruction. Contrast material: OMNI 350; Contrast volume: 95 ml; Contrast route: INTRAVENOUS (IV); COMPARISON: CTA Chest-Pulmonary Emb [id number] 07/14/2017 6:14 PM RADIATION DOSE METRICS: Total DLP (mGy-cm): 638.89 FINDINGS: Pulmonary arteries: No pulmonary embolus or aortic dissection. Aorta: See Pulmonary arteries finding. Lungs: Bilateral discoid atelectasis and/or scarring. Pleural spaces: Unremarkable. No pneumothorax. No pleural effusion. Heart: Unremarkable. No cardiomegaly. No pericardial effusion. Lymph nodes: Unremarkable. No enlarged lymph nodes. Bones/joints: Large flowing multilevel hypertrophic vertebral body osteophytes consistent with diffuse idiopathic skeletal hyperostosis (DISH) syndrome. Mild thoracic spondylosis. Soft tissues: Unremarkable. CT/CT angio chest PE protcl [id number] IMPRESSION: No pulmonary embolus or aortic dissection. Radiation Dose CTDIVOL = (mGy): DLP = 638.89 (mGy-cm)
[2021-03-07] MEDS: iohexol 350 mg/mL 100 mL Btl IV (00:22)
[2021-03-07 01:16] LABS: Troponin 5 2HR 11.23 ng/L (0-10); Troponin 5 2HR Delta 0.23 ABS# (0-10)
[2021-03-07] MEDS: metoprolol tartrate 50 mg Tablet PO (01:50)
[2021-03-07 02:00] VITALS: BP 121/79; PULSE 106; RESP 18; O2SAT 100
--- NOTE | 2021-03-07 10:34 | DCPLANNER ---
Addendum entered by Melina Aldrich 05/27/21 11:40: Patient had a follow up appointment scheduled with [facility] - patient did attend appointment. Original Note: manager garden had message to schedule a follow up appointment for patient with [facility]. manager garden called [facility], spoke with Olga, gave clinic patients information. A follow up appointment was scheduled for Saturday, March 14, 2021 at 1:15 with Anne. manager garden called patient and gave patient the appointment information.
== END 2021-03-07 02:02 | disposition home or self-care (01) ==
PROVIDERS: Emergency Provider Emergency Medicine; PCP Family Medicine
DX: R07.89 Other chest pain (principal); I48.91 Unspecified atrial fibrillation; I25.10 Atherosclerotic heart disease of native coronary artery without angina pectoris; I50.9 Heart failure, unspecified; I11.0 Hypertensive heart disease with heart failure; E11.42 Type 2 diabetes mellitus with diabetic polyneuropathy; E78.5 Hyperlipidemia, unspecified; I27.20 Pulmonary hypertension, unspecified; G47.30 Sleep apnea, unspecified; K21.9 Gastro-esophageal reflux disease without esophagitis; E66.01 Morbid (severe) obesity due to excess calories; Z68.43 Body mass index [BMI] 50.0-59.9, adult; Z86.73 Personal history of transient ischemic attack (TIA), and cerebral infarction without residual deficits; Z79.84 Long term (current) use of oral hypoglycemic drugs; Z79.82 Long term (current) use of aspirin; Z79.01 Long term (current) use of anticoagulants
CPT/HCPCS: 71045; 71275; 80053; 84484; 85025; 85610; 93005; 96374; 96375; 99284; J2270; J2405; J3490; Q9967

== ENCOUNTER 2021-03-21 07:57 | Outpatient (CLI) | payer MEDICARE, SELFPAY ==
--- NOTE | 2021-03-21 08:45 | USCV_ITS ---
Guardado Macarena Age: 65 Gender: F : 1955 Exam Date: 03/21/2021 08:40 Ordering Phys: Nikki Bray MD ([email or web address]) Technologist: Brunilda Gresham [place] [facility] [place] CONGESTIVE HEART FAILURE, Pulmonary hypertension BP: 112 / 70 HR: 109 Rhythm: Sinus Technical Quality: Technically difficult study MEASUREMENTS (Male / Female) Normal Values 2D ECHO LV Diastolic Diameter PLAX 2.9 cm 4.2 - 5.9 / 3.9 - 5.3 cm LV Systolic Diameter PLAX 1.7 cm IVS Diastolic Thickness 1.7 cm 0.6 - 1.0 / 0.6 - 0.9 cm IVS Systolic Thickness 2.2 cm LVPW Diastolic Thickness 1.8 cm 0.6 - 1.0 / 0.6 - 0.9 cm LVPW Systolic Thickness 2.6 cm RV Chamber Size 3.6 cm LVOT Diameter 2.0 cm LV Ejection Fraction 2D Teich 72.2 % LV Ejection Fraction MOD 2C 58.8 % LV Ejection Fraction 2C AL 58.0 % LA Diameter 3.5 cm LA Width 4.5 cm LA Height 5.1 cm RA Width 3.8 cm RA Height 4.8 cm Aorta at Sinotubular Diameter 2.1 cm DOPPLER AV Peak Velocity 135.0 cm/s LVOT Peak Velocity 97.0 cm/s AV Area Cont Eq vti 1.8 cm squared AV Area Cont Eq pk 2.3 cm squared TR Peak Velocity 331.3 cm/s TR Peak Gradient 43.9 mmHg TR Mean Velocity 240.6 cm/s TR Mean Gradient 26.8 mmHg TR Velocity Time Integral 105.3 cm TV Peak E Velocity 125.0 cm/s PV Peak Velocity 83.0 cm/s RV Acceleration Time 0.1 s RV Ejection Time 0.5 s RV AcT/ET 0.3 FINDINGS Left Ventricle Normal left ventricular cavity size and systolic function. Left ventricular ejection fraction is estimated at 60-65 %. No regional wall motion abnormalities. Abnormal septal motion. Right Ventricle Mildly increased right ventricular size. Moderately decreased right ventricular systolic function. Right ventricular systolic pressure 59 mmHg. Right Atrium Normal right atrial size. Right atrial pressure estimated at 15 mm Hg. Left Atrium Moderately increased left atrial size. Mitral Valve Moderate mitral annular calcification. No mitral valve stenosis. Aortic Valve Aortic valve not well visualized. No significant aortic valve stenosis. Tricuspid Valve Tricuspid valve not well visualized. Pulmonic Valve Pulmonic valve not well visualized. Pericardium No pericardial effusion. Aorta Aorta not well visualized. Normal sized aortic root and ascending aorta. Normal sized inferior vena cava with less than 50% respiratory variation. CONCLUSIONS 1. This is a technically difficult study. Ultrasound enhancing agent (optison) was used per protocol. 2. Normal left ventricular cavity size and systolic function. Left ventricular ejection fraction is estimated at 60 %. No regional wall motion abnormalities. Abnormal septal motion. 3. Mildly increased right ventricular size and moderately decreased right ventricular systolic function. 4. Severe pulmonary hypertension with pulmonary artery pressure estimated at 59 mm Hg. 5. When compared to previous echocardiogram dated 12/26/2018, there may not have been any significant change. Nikki Bray MD (Electronically Signed) Final Date: 29 March 2021 09:53 S
[2021-03-21] MEDS: perflutren protein-a microsphr 0.22 mg/mL SDV 3 mL IV (09:25)
== END 2021-03-21 07:58 | disposition home or self-care (01) ==
LOC: US 08:00
PROVIDERS: PCP Family Medicine; Visit Provider Internal Medicine Cardiovascular Disease
DX: I50.32 Chronic diastolic (congestive) heart failure (principal); I48.19 Other persistent atrial fibrillation; I27.20 Pulmonary hypertension, unspecified
CPT/HCPCS: C8929

== ENCOUNTER 2021-04-10 17:55 | Emergency (ER) | payer MEDICARE, SELFPAY ==
--- NOTE | 2021-04-10 18:02 | XRR_ITS ---
PROCEDURE INFORMATION: Exam: XR Chest Exam date and time: 04/10/2021 6:02 PM Age: 65 years old Clinical indication: Left-sided; Patient HX: Left sided chest pain x today TECHNIQUE: Imaging protocol: XR of the chest. Views: 1 view. COMPARISON: CR (CHEST, ) 03/06/2021 10:44 PM FINDINGS: Lungs: Right hilar to lower lobe atelectasis versus minimal infiltrate. Pleural spaces: Unremarkable. No pleural effusion. No pneumothorax. Heart/Mediastinum: Cardiomegaly. Bones/joints: Unremarkable. XR/XR chest 1V portable [id number] IMPRESSION: 1. Cardiomegaly. 2. Right hilar to lower lobe atelectasis versus minimal infiltrate.
--- NOTE | 2021-04-10 18:02 | ECG_ITS ---
[facility] Test Date: 2021-04-10 Pat Name: Macaerna Guardado Department: Room: Gender: Female Cardiograph Operator: : 1955 Requested By: Graham Cochran Order Number: [id number] Reading MD: BHAVIK MARES Measurements Intervals [place] Rate: 90 P: OK: QRS: -21 QRSD: 105 T: 36 QT: 375 QTc: 461 Interpretive Statements ATRIAL FIBRILLATION LOW QRS VOLTAGE IN PRECORDIAL LEADS [QRS DEFLECTION < 1.0 mV IN CHEST LEADS] POSSIBLE ANTERIOR MYOCARDIAL INFARCTION , OF INDETERMINATE AGE [30 ms Q WAVE IN V3/V4, OR R < 0.2 mV IN V4] Compared to ECG 03/06/2021 22:43:31 Low QRS voltage now present Myocardial infarct finding now present Left-axis deviation no longer present Electronically Signed On 04-11-2021 20:03:54 IMPREGNATOR HELPER by BHAVIK MARES [email or web address]
[2021-04-10 18:09] VITALS: BP 151/88; PULSE 92; RESP 22; TEMP 36.7; O2SAT 99; BMI 51.5
--- NOTE | 2021-04-10 18:22 | PC.NURSE ---
Patient given full dose aspirin in route by EMS
--- NOTE | 2021-04-10 18:28 | ED_ITS ---
HPI - Chest Pain General: Chief Complaint: Chest Pain Stated Complaint: CHEST PAIN Time Seen by Provider: 04/10/21 18:02 Source: patient and EMS Mode of arrival: EMS Limitations: no limitations History of Present Illness: HPI narrative: 65-year-old female has a history of congestive heart failure along with A. fib states she was doing some work around the house today and was not wearing her oxygen she states she supposed be on 2 to 3 L and states started having some dyspnea and chest pain. States it started at 1230 she also had a slight headache she states since resolved. States her chest pain is resolved as well and her shortness of breath is improved as EMS put her on oxygen. She denies any vomiting or diarrhea states she has had some increased swelling in her legs. She denies any fevers. Associated symptoms: Reports dyspnea; Deny abdominal pain, fever(s), nausea or vomiting Review of Systems Const: Denies: fever(s), chills, body aches or change in appetite Eyes: Denies: blurry vision or eye discomfort ENMT: Denies: throat pain or dental pain Card: Reports: chest pain Resp: Reports: dyspnea GI: Denies: abdominal pain, nausea, vomiting or diarrhea : Denies: dysuria Musc: Reports: extremity swelling Skin/Breast: Denies: rash Neuro: Denies: headache(s) Psych: Denies: depression Pantera/Lymph: Denies: easy bruising All/Imm: Denies: urticaria PFSH ED PFSH: Medical History Anemia Anxiety disorder Bilateral leg cramps CAD (coronary artery disease) Cardiac arrhythmia Chest pain CHF (congestive heart failure) CHF (congestive heart failure), NYHA class III Diabetes Diabetic polyneuropathy Diastolic dysfunction Enrolled in chronic care management GERD (gastroesophageal reflux disease) Hiatal hernia History of nonmelanoma skin cancer HTN (hypertension) Hx MRSA infection Hyperlipidemia Interstitial lung disease Morbid obesity Myalgia Panic disorder Post-traumatic stress disorder, chronic Pulmonary hypertension Restless leg syndrome Rheumatoid arthritis Shortness of breath Sleep apnea TIA (transient ischemic attack) Surgical History S/P appendectomy S/P knee surgery Multiple S/P tubal ligation Family History Mother , age 91 Heart disease Diabetes Cancer Breast, cervical, lung Father , Age 93 - CHF Heart disease Grandmother Diabetes Maternal Social History Alcohol intake: current Alcohol intake frequency: holidays/special occasions only Physical Exam Const: COMMON NORMALS: no acute distress, patient oriented x3 and healthy appearing HENMT: COMMON NORMALS: normocephalic and atraumatic HEAD & SCALP: normocephalic and atraumatic Eye: COMMON NORMALS: Equal, round and reactive pupils present and EOMs intact bilaterally PUPIL: Yes Equal, round and reactive pupils present Neck/C-Spine: COMMON NORMALS: full ROM and supple Chest: COMMONS NORMALS: normal inspection of the chest and normal palpation of entire chest wall Resp: COMMON NORMALS: normal respiratory effort, No retractions, No use of accessory muscles and clear to auscultation bilaterally AUSCULTATION: clear to auscultation bilaterally Cardio: COMMON NORMALS: regular rate, regular rhythm and No murmurs present (Cardio) RATE: regular rate RHYTHM: regular rhythm GI: COMMON NORMALS: Normal to inspection, nondistended, normoactive bowel sounds present, Soft to palpation, non-tender and no masses PALPATION: Yes Soft to palpation Extremity: COMMON NORMALS: full ROM NARRATIVE EXTREMITY EXAM: 2+ edema to lower ext Neuro: COMMON NORMALS: patient oriented x3, moves all extremities and no focal motor deficits Psych: COMMON NORMALS: mental status grossly normal, Normal thought process present and cooperative THOUGHT PROCESS: Normal thought process present Skin: COMMON NORMALS: no rashes or lesions noted and no wounds GENERAL SKIN EXAM: no rashes or lesions noted Course Vital Signs: Vital signs: Vital Signs Temperature 98.0 F 04/10/21 18:09 Pulse Rate 100 04/10/21 21:46 Respiratory Rate 18 04/10/21 21:46 Blood Pressure 148/85 04/10/21 19:03 Pulse Oximetry 90 04/10/21 21:46 MDM - Chest Pain MDM Narrative: Medical decision making narrative: Patient presents here with chest pains atypical in nature patient's initial repeat troponins here show no change she has no signs of acute coronary syndrome she has no signs of pulmonary embolism does have some slight swelling did give a dose of Lasix she feels much improved here I feel she is stable for discharge she is to follow-up with PCP and return if worsening she understands agrees to plan. Lab Data: Labs: Lab Results 04/10/21 04/10/21 04/10/21 18:50 18:50 18:50 WBC 8.8 10^3/uL 10^3/ uL (4.0-10.0) RBC 4.02 10^6/uL L 10 ^6/uL (4.1-5.3) Hgb 12.0 g/dL g/dL (11.5-15.3) Hct 37.1 % % (37.0-47.0) MCV 92.3 fl fl (81-99) MCH 29.9 pg pg (28.0-34.0) MCHC 32.3 g/dL g/dL (30.0-36.0) RDW 13.3 % % (12.1-15.1) Plt Count 300 10^3/cmm 10^3 /cmm (130-400) MPV 10.2 fL fL (7.4-10.4) Neut % (Auto) 58.3 % % Lymph % (Auto) 29.0 % % [place] % (Auto) 8.5 % % Eos % (Auto) 3.3 % % Baso % (Auto) 0.7 % % Neut # (Auto) 5.13 10^3/uL 10^3 /uL (1.8-7.7) Lymph # (Auto) 2.6 10^3/uL 10^3/ uL (0.8-4.8) [place] # (Auto) 0.8 10^3/uL 10^3/ uL (0.2-0.9) Eos # (Auto) 0.3 10^3/uL 10^3/ uL (0.0-0.8) Baso # (Auto) 0.1 10^3/uL 10^3/ uL (0.0-0.1) Nucleated RBC % (a uto) 0 % % Nucleated RBCs # 0.0 /100WBC /100W BC Sodium 139 mmol/L mmol/L (136-145) Potassium 4.0 mmol/L mmol/L (3.5-5.1) Chloride 102 mmol/L mmol/L (98-107) Carbon Dioxide 24 mmol/L mmol/L (22-29) Anion Gap 17.0 (5-19) BUN 15 mg/dL mg/dL (8-23) Creatinine 0.7 mg/dL mg/dL (0.5-0.9) GFR Calculation 83.5 mL/min L mL/ min (90-130) Glucose 137 mg/dL H mg/dL (65-115) Calculated Osmolal ity 291 mOsm/kg mOsm/ kg (285-295) Calcium 8.3 mg/dL L mg/dL (8.5-10.5) Total Bilirubin 0.2 mg/dL mg/dL (0.15-1.2) AST 17 U/L U/L (0-32) ALT 17 U/L U/L (0-33) Alkaline Phosphata se 99 IU/L IU/L (35-105) Troponin T Baselin e 12 ng/L H ng/L (0-10) Troponin T [address] [facility] Delta Troponin T NT-Pro-B Natriuret Pep 786 pg/mL H pg/mL (0-125) Total Protein 5.9 g/dL L g/dL (6.6-8.7) Albumin 3.6 g/dL g/dL (3.5-5.2) Globulin 2.3 g/dL g/dL (1.3-4.6) 04/10/21 20:39 WBC RBC Hgb Hct MCV MCH MCHC RDW Plt Count MPV Neut % (Auto) Lymph % (Auto) [place] % (Auto) Eos % (Auto) Baso % (Auto) Neut # (Auto) Lymph # (Auto) [place] # (Auto) Eos # (Auto) Baso # (Auto) Nucleated RBC % (a uto) Nucleated RBCs # Sodium Potassium Chloride Carbon Dioxide Anion Gap BUN Creatinine GFR Calculation Glucose Calculated Osmolal ity Calcium Total Bilirubin AST ALT Alkaline Phosphata se Troponin T Baselin e Troponin T [address] [facility] 10.36 ng/L H ng/L (0-10) Delta Troponin T -1.64 ABS# L ABS# (0-10) NT-Pro-B Natriuret Pep Total Protein Albumin Globulin Imaging Data^: CXR: Attestation: I personally reviewed and interpreted this imaging study as follows: Radiologist's impression: [employer] [address] XRay Report Signed Patient: Macarena Guardado Unit #: [id number] : 1955 Age/Sex: 65 / F ADM Date: 04/10/21 Loc: ER Room/Bed: Attending Dr: Ordering Provider/Ordering MD: Graham Park DO Date of Service: 04/10/21 Procedure(s): XR chest 1V portable [id number] Accession Number(s): [id number] Report Number: [id number] PROCEDURE INFORMATION: Exam: XR Chest Exam date and time: 04/10/2021 6:02 PM Age: 65 years old Clinical indication: Left-sided; Patient HX: Left sided chest pain x today TECHNIQUE: Imaging protocol: XR of the chest. Views: 1 view. COMPARISON: CR (CHEST, ) 03/06/2021 10:44 PM FINDINGS: Lungs: Right hilar to lower lobe atelectasis versus minimal infiltrate. Pleural spaces: Unremarkable. No pleural effusion. No pneumothorax. Heart/Mediastinum: Cardiomegaly. Bones/joints: Unremarkable. XR/XR chest 1V portable [id number] IMPRESSION: 1. Cardiomegaly. 2. Right hilar to lower lobe atelectasis versus minimal infiltrate. Dictated By: Tino Ross MD Signed By: Tino Ross MD Signed Date/Time: 04/10/211838 DD/ 01 EKG Data^: EKG 1: Attestation: I personally reviewed and interpreted this EKG as follows: EKG interpretation date: 04/10/21 EKG interpretation time: 18:38 Interpretation: afib hr [address] or t wave abnormalities qrs 105 qtc 423 Discharge Plan Discharge Patient Disposition: Home Clinical Impression: CHF (congestive heart failure) Chest pain Qualifiers: Chest pain type: unspecified Qualified Code(s): R07.9 - Chest pain, unspecified Condition: Stable Prescriptions: No Action (DME) blood-glucose meter [Accu-Chek Radha Plus Meter] Misc See Rx Instructions .ROUTE .MEDSUPPLY Qty: 1 RF: 0 (DME) Accu-Chek Radha Plus test strp Strip See Rx Instructions .ROUTE .MEDSUPPLY Qty: 200 RF: 3 mupirocin 2 % ointment 1 applic TOPICAL BID Qty: 22 RF: 0 amlodipine-benazepril 10-20 mg capsule 1 cap PO DAILY Qty: 30 RF: 11 Hold Instructions: Doctor's Order omeprazole 20 mg capsule,delayed release(DR/EC) See Rx Instructions .ROUTE .COMPLEX Qty: 90 RF: 3 ropinirole 0.5 mg tablet 0.5 mg PO TID Qty: 90 RF: 11 fluticasone propionate [Allergy Relief (fluticasone)] 50 mcg/actuation spray,suspension 2 spray intranasal DAILY PRN (Reason: allergy symptoms) Qty: 15.8 RF: 11 cyclobenzaprine 10 mg tablet 10 mg PO DAILY PRN (Reason: muscle spasm) Qty: 30 RF: 0 clindamycin HCl 300 mg capsule 300 mg PO Q6H 10 Days Qty: 40 RF: 0 metolazone 5 mg tablet 5 mg PO Q48H Qty: 15 RF: 4 naproxen sodium [Aleve] 220 mg capsule 220 mg PO BID PRN (Reason: Pain) RF: 0 prenat.vits,dylan,cyt-idxr-yktux Tablet 1 tab PO DAILY RF: 0 coenzyme [id number] E 100-100 mg-unit capsule PO DAILY RF: 0 furosemide 40 mg tablet 80 mg PO .COMPLEX RF: 0 Xarelto 20 mg tablet 20 mg PO DAILY Qty: 90 RF: 2 potassium chloride 10 mEq capsule, extended release See Rx Instructions .ROUTE .COMPLEX Qty: 90 RF: 4 aspirin [Adult Aspirin Regimen] 81 mg tablet,delayed release (DR/EC) 81 mg PO DAILY Qty: 90 RF: 0 isosorbide mononitrate 30 mg tablet extended release 24 hr 30 mg PO DAILY RF: 0 Hold Instructions: Doctor's Order albuterol sulfate 2.5 mg /3 mL (0.083 %) solution for nebulization 2.5 mg INHALATION Q4H PRN (Reason: Shortness Of Breath) Qty: 15 RF: 11 levofloxacin 500 mg tablet 500 mg PO Q24H 10 Days Qty: 10 RF: 0 buspirone 5 mg tablet 5 mg PO BID Qty: 60 RF: 3 doxycycline hyclate [Vibramycin] 100 mg capsule 100 mg PO BID 14 Days Qty: 28 RF: 0 nitroglycerin 0.4 mg tablet, sublingual 0.4 mg SUBLINGUAL Q5M PRN (Reason: chest pain) Qty: 20 RF: 2 trazodone 50 mg tablet See Rx Instructions PO .QHS Qty: 60 RF: 11 duloxetine [Cymbalta] 60 mg capsule,delayed release(DR/EC) 60 mg PO BID Qty: 60 RF: 11 albuterol sulfate [ProAir HFA] 90 mcg/actuation HFA aerosol inhaler 2 inh inhalation Q6H PRN (Reason: shortness of breath or wheezing) Qty: 8.5 RF: 5 magnesium oxide 400 mg magnesium capsule 400 mg PO .COMPLEX Qty: 32 RF: 4 epinephrine 0.3 mg/0.3 mL auto-injector 0.3 mg IM ONCE Qty: 2 RF: 4 metoprolol tartrate 100 mg tablet 100 mg PO BID Qty: 180 RF: 3 metformin 500 mg tablet 500 mg PO TID Qty: 270 RF: 3 Januvia 100 mg tablet 100 mg PO DAILY Qty: 90 RF: 3 pioglitazone 15 mg tablet See Rx Instructions .ROUTE .COMPLEX Qty: 90 RF: 1 Discharge Orders: Discharge ED (Routine); Ordered 04/10/21 Ordered By: Aaron Parikh Referrals: Yassine Mason DO [Primary Care Provider] - 1-3 days Discharge Diet: Advance as tolerated Discharge Activity: Resume usual activity Patient Instructions: Heart Failure (ED) Coding Level of Care Code ED Milk Treater for Shaun Fwd Exam Comprehensive
[2021-04-10 19:00] LABS: Basophils # 0.1 10^3/uL (0.0-0.1); Basophils % 0.7 %; Eosinophils # 0.3 10^3/uL (0.0-0.8); Eosinophils % 3.3 %; Hematocrit 37.1 % (37.0-47.0); Lymphocytes # 2.6 10^3/uL (0.8-4.8); Mean Corpuscular HGB Conc 32.3 g/dL (30.0-36.0); Mean Corpuscular Hemoglobin 29.9 pg (28.0-34.0); Mean Corpuscular Volume 92.3 fl (81-99); Mean Platelet Volume 10.2 fL (7.4-10.4); Monocytes # 0.8 10^3/uL (0.2-0.9); Monocytes % 8.5 %; Neutrophils # 5.13 10^3/uL (1.8-7.7); Neutrophils % 58.3 %; Nucleated Red Blood Cells % 0 %; Platelet Count 300 10^3/cmm (130-400); Red Blood Count 4.02 10^6/uL (4.1-5.3); Red Cell Distribution Width 13.3 % (12.1-15.1); White Blood Count 8.8 10^3/uL (4.0-10.0)
[2021-04-10] MEDS: FUROsemide 10 mg/mL SDV 10mL 60 MG IVP (19:02)
[2021-04-10 19:03] VITALS: BP 148/85; PULSE 90; PULSE 96; RESP 16; O2SAT 100
[2021-04-10 19:29] LABS: Troponin(5th) Baseline 12 ng/L (0-10)
[2021-04-10 19:35] LABS: Alanine Aminotransferase 17 U/L (0-33); Albumin Level 3.6 g/dL (3.5-5.2); Alkaline Phosphatase 99 IU/L (35-105); Aspartate Amino Transferase 17 U/L (0-32); Blood Urea Nitrogen 15 mg/dL (8-23); Calcium 8.3 mg/dL (8.5-10.5); Carbon Dioxide 24 mmol/L (22-29); Chloride 102 mmol/L (98-107); Globulin 2.3 g/dL (1.3-4.6); Glomerular Filtration Rate 83.5 mL/min (90-130); Glucose 137 mg/dL (65-115); NT Pro B Type Natriuretic Pept 786 pg/mL (0-125); Osmolality Calculated 291 mOsm/kg (285-295); Sodium 139 mmol/L (136-145); Total Bilirubin 0.2 mg/dL (0.15-1.2); Total Protein 5.9 g/dL (6.6-8.7)
[2021-04-10 21:26] LABS: Troponin 5 2HR 10.36 ng/L (0-10)
[2021-04-10 21:34] LABS: Troponin 5 2HR Delta -1.64 ABS# (0-10)
[2021-04-10 21:46] VITALS: PULSE 100; RESP 18; O2SAT 90
[2021-04-11 01:12] VITALS: BP 146/76; PULSE 94; RESP 18; O2SAT 95
== END 2021-04-10 21:54 | disposition home or self-care (01) ==
PROVIDERS: Family Medicine; Emergency Provider Emergency Medicine; PCP Family Medicine
DX: R07.9 Chest pain, unspecified (principal); I11.0 Hypertensive heart disease with heart failure; I50.9 Heart failure, unspecified; Z79.82 Long term (current) use of aspirin; Z79.84 Long term (current) use of oral hypoglycemic drugs; I25.10 Atherosclerotic heart disease of native coronary artery without angina pectoris; E11.42 Type 2 diabetes mellitus with diabetic polyneuropathy; E78.5 Hyperlipidemia, unspecified; Z86.73 Personal history of transient ischemic attack (TIA), and cerebral infarction without residual deficits
CPT/HCPCS: 36415; 71045; 80053; 83880; 84484; 85025; 93005; 96374; 99284; J1940

== ENCOUNTER → 2021-07-19 09:06 | Outpatient (BNVA) | payer MEDICARE, SELFPAY | PROVIDERS: PCP Family Medicine; Visit Provider Family Medicine | DX: E11.59 Type 2 diabetes mellitus with other circulatory complications (principal) | CPT/HCPCS: 83036 ==

== ENCOUNTER → 2021-07-20 11:25 | Outpatient (BNVA) | payer MEDICARE, SELFPAY | PROVIDERS: PCP Family Medicine; Visit Provider Family Medicine | DX: M79.672 Pain in left foot (principal); M25.572 Pain in left ankle and joints of left foot; S92.512A Displaced fracture of proximal phalanx of left lesser toe(s), initial encounter for closed fracture; W19.XXXA Unspecified fall, initial encounter | CPT/HCPCS: 73610; 73630 ==

== ENCOUNTER → 2021-08-07 09:36 | Outpatient (BNVA) | payer MEDICARE, SELFPAY | PROVIDERS: PCP Family Medicine; Visit Provider Family Medicine | DX: I25.10 Atherosclerotic heart disease of native coronary artery without angina pectoris (principal) | CPT/HCPCS: 80061 ==

== ENCOUNTER → 2021-08-09 09:38 | Outpatient (BNVA) | payer MEDICARE, SELFPAY | PROVIDERS: PCP Family Medicine; Visit Provider Otolaryngology | DX: K14.8 Other diseases of tongue (principal) | CPT/HCPCS: 99212 ==

== ENCOUNTER → 2021-11-14 16:18 | Outpatient (BNVA) | payer MEDICARE, SELFPAY | PROVIDERS: PCP Family Medicine; Visit Provider Nurse Practitioner Family | DX: R35.0 Frequency of micturition (principal) | CPT/HCPCS: 81003; 87077; 87086; 87184 ==

== ENCOUNTER → 2022-02-26 10:45 | Outpatient (BNVA) | payer MEDICARE, SELFPAY | PROVIDERS: PCP Family Medicine; Visit Provider Internal Medicine Pulmonary Disease | DX: I27.20 Pulmonary hypertension, unspecified (principal); R06.02 Shortness of breath; R09.02 Hypoxemia; I50.32 Chronic diastolic (congestive) heart failure; I48.11 Longstanding persistent atrial fibrillation; I25.119 Atherosclerotic heart disease of native coronary artery with unspecified angina pectoris; G47.33 Obstructive sleep apnea (adult) (pediatric); E66.01 Morbid (severe) obesity due to excess calories; I10 Essential (primary) hypertension; M06.9 Rheumatoid arthritis, unspecified; Z68.43 Body mass index [BMI] 50.0-59.9, adult; J84.9 Interstitial pulmonary disease, unspecified | CPT/HCPCS: 99204 ==

== ENCOUNTER 2022-03-19 07:01 | Outpatient (CLI) | payer MEDICARE, SELFPAY | END 2022-03-19 07:02 | disposition home or self-care (01) | PROVIDERS: PCP Family Medicine; Visit Provider Internal Medicine Pulmonary Disease | DX: I27.20 Pulmonary hypertension, unspecified (principal); R06.02 Shortness of breath | CPT/HCPCS: 94010; 94618; 94726; 94729; 99204 ==

== ENCOUNTER → 2022-04-16 09:18 | Outpatient (BNVA) | payer MEDICARE, SELFPAY | PROVIDERS: PCP Family Medicine; Visit Provider Family Medicine | DX: R30.0 Dysuria (principal); N39.0 Urinary tract infection, site not specified; R53.83 Other fatigue; E11.9 Type 2 diabetes mellitus without complications; E11.59 Type 2 diabetes mellitus with other circulatory complications; I50.32 Chronic diastolic (congestive) heart failure | CPT/HCPCS: 80053; 81003; 83036; 85025; 87077; 87086; 87184 ==

== ENCOUNTER 2022-05-12 23:51 | Emergency (ER) | payer MEDICARE, SELFPAY ==
[2022-05-12 23:53] VITALS: BMI 53.1
[2022-05-13] VITALS (9 sets, daily range): BP systolic 104–188; BP diastolic 62–80; PULSE 84–101; RESP 12–22; TEMP 37.1; O2SAT 99–100
--- NOTE | 2022-05-13 00:03 | XRR_ITS ---
PROCEDURE INFORMATION: Exam: XR Chest Exam date and time: 05/13/2022 12:31 AM Age: 66 years old Clinical indication: Pain; Shortness of breath; Chest pressure; Additional info: Cp SOB TECHNIQUE: Imaging protocol: Radiologic exam of the chest. Views: 1 view. COMPARISON: CR XR chest 1V portable [id number] 04/10/2021 6:11 PM FINDINGS: Lungs: There is mild bronchial wall thickening seen predominately within the right hemithorax. Some strandy and patchy opacities are present in the right mid and lower hemithorax. These findings could represent mild right-sided bronchitis and pneumonitis . Superimposed right basilar atelectasis cannot be excluded as well. Pleural spaces: Unremarkable. No pleural effusion. No pneumothorax. Heart/Mediastinum: Unremarkable. No cardiomegaly. Bones/joints: Unremarkable. XR/XR chest 1V portable [id number] IMPRESSION: 1. There are increased peribronchial markings on the right. 2. There are some strandy and patchy opacities present in the right mid and lower hemithoraces possibly representing superimposed atelectasis versus pneumonitis.
--- NOTE | 2022-05-13 00:03 | ECG_ITS ---
[facility] Test Date: 2022-05-13 Pat Name: Macarena Guardado (Cindi) Department: Room: Gender: Female [employer]er: : 1955 Requested By: Jamari Uribe Order Number: [id number] Nimisha MD: Galo Bocanegra M.D. Measurements Intervals [place] Rate: 76 P: 0 IA: 0 QRS: -33 QRSD: 105 T: 59 QT: 341 QTc: 384 Interpretive Statements ATRIAL FIBRILLATION LEFT AXIS DEVIATION [QRS AXIS < -30] LOW QRS VOLTAGE IN PRECORDIAL LEADS [QRS DEFLECTION < 1.0 mV IN CHEST LEADS] PATTERN CONSISTENT WITH PULMONARY DISEASE MINIMAL ST DEPRESSION [0.025+ mV ST DEPRESSION] Compared to ECG 04/10/2021 18:38:44 Left-axis deviation now present ST (T wave) deviation now present Myocardial infarct finding no longer present Electronically Signed On 05-13-2022 20:01:50 HAND UPPER AND BOTTOM LACER by Galo Bocanegra M.D. [email or web address]
[2022-05-13] MEDS: FUROsemide 10 mg/mL SDV 10mL 80 MG IVP (00:15)
[2022-05-13] MEDS: metoprolol tartrate 1 mg/1 mL SDV 5 mL 5 MG IVP (00:18)
[2022-05-13] MEDS: morphine 4 mg/mL SDV 1 mL IVP (00:19)
[2022-05-13] MEDS: ondansetron 2 mg/ML SDV 2 mL 4 MG IVP (00:20)
[2022-05-13 00:21] LABS: Basophils % 0.4 %; Eosinophils # 0.1 10^3/uL (0.0-0.8); Eosinophils % 1.5 %; Hematocrit 39.3 % (37.0-47.0); Hemoglobin 12.4 g/dL (11.5-15.3); Lymphocytes # 3.5 10^3/uL (0.8-4.8); Lymphocytes % 52.2 %; Mean Corpuscular HGB Conc 31.6 g/dL (30.0-36.0); Mean Corpuscular Hemoglobin 28.7 pg (28.0-34.0); Mean Platelet Volume 9.5 fL (7.4-10.4); Monocytes # 0.6 10^3/uL (0.2-0.9); Monocytes % 8.3 %; Neutrophils # 2.52 10^3/uL (1.8-7.7); Neutrophils % 37.5 %; Nucleated Red Blood Cells % 0 %; Platelet Count 372 10^3/cmm (130-400); Red Blood Count 4.32 10^6/uL (4.1-5.3); White Blood Count 6.7 10^3/uL (4.0-10.0)
[2022-05-13] MEDS: nitroglycerin 1 gm/inch oint Pkt 1 INCH TOPICAL (00:21)
[2022-05-13 00:31] LABS: INR 1.15 (0.8-1.2)
[2022-05-13 00:41] LABS: Troponin(5th) Baseline 13 ng/L (0-10)
[2022-05-13 00:46] LABS: Alanine Aminotransferase 20 U/L (0-33); Albumin Level 4.3 g/dL (3.5-5.2); Alkaline Phosphatase 77 U/L (35-105); Anion Gap 16.5 (5-19); Aspartate Amino Transferase 22 U/L (0-32); Blood Urea Nitrogen 22 mg/dL (8-23); Calcium 9.7 mg/dL (8.5-10.5); Carbon Dioxide 26 mmol/L (22-29); Chloride 101 mmol/L (98-107); Globulin 2.7 g/dL (1.3-4.6); Glomerular Filtration Rate 62.3 mL/min (90-130); Glucose 123 mg/dL (65-115); NT Pro B Type Natriuretic Pept 709 pg/mL (0-125); Osmolality Calculated 293 mOsm/kg (285-295); Potassium 4.5 mmol/L (3.5-5.1); Sodium 139 mmol/L (136-145); Total Bilirubin 0.2 mg/dL (0.15-1.2)
[2022-05-13 00:51] LABS: Influenza A by IFA negative (Negative); Influenza B by IFA negative (Negative)
[2022-05-13 00:52] LABS: SARS Covid-2 Antigen negative (Negative)
--- NOTE | 2022-05-13 01:10 | W.ED.CHESTPA ---
HPI - Chest Pain General: Chief Complaint: Chest Pain Stated Complaint: SOB Time Seen by Provider: 05/12/22 23:56 Source: patient and EMS History of Present Illness: 66-year-old female with a history of atrial fibrillation, pulmonary hypertension, COPD. She presents with shortness of breath and chest pressure. She was driving when it started. She is brought in by EMS. She uses oxygen normally. She relates that her physician recently increase her Lasix dosage to 80 mg twice daily. She denies any fever. She was given nitroglycerin in route with some improvement in her pressure. MD complaint: chest heaviness and chest discomfort Pertinent past history: other Onset (ago): minute(s) Timing of current episode: constant and still present Prior episodes: Yes Onset: during rest Pain location: substernal Pain radiation: none Quality: heaviness and other (Pressure) Relieving factors: nitroglycerin Exacerbating factors: exertion Associated symptoms: Reports diaphoresis, dyspnea, leg edema, nausea and palpitations; Deny abdominal pain, fever(s) or vomiting Treatment prior to arrival: nitroglycerin and oxygen Review of Systems Const: Reports: diaphoresis; Denies: fever(s) Eyes: Denies: change in vision Card: Reports: chest pain and palpitations Resp: Reports: dyspnea GI: Reports: nausea; Denies: abdominal pain or vomiting : Denies: difficulty voiding Skin/Breast: Denies: rash Neuro: Denies: headache(s), weakness in extremities, dizziness or confusion Psych: Reports: anxiety PFS ED PFSH: Medical History Anemia Anxiety disorder Bilateral leg cramps CAD (coronary artery disease) Cardiac arrhythmia Chest pain CHF (congestive heart failure) CHF (congestive heart failure), NYHA class III Diabetes Diabetic polyneuropathy Diastolic dysfunction Enrolled in chronic care management GERD (gastroesophageal reflux disease) Hiatal hernia History of nonmelanoma skin cancer HTN (hypertension) Hx MRSA infection Hyperlipidemia Interstitial lung disease Morbid obesity Myalgia Panic disorder Post-traumatic stress disorder, chronic Pulmonary hypertension Restless leg syndrome Rheumatoid arthritis Shortness of breath Sleep apnea TIA (transient ischemic attack) Surgical History S/P appendectomy S/P knee surgery Multiple S/P tubal ligation Family History Mother , age 91 Heart disease Diabetes Cancer Breast, cervical, lung Father , Age 93 - CHF Heart disease Grandmother Diabetes Maternal Social History Smoking and tobacco status: never smoked Alcohol intake: current Alcohol intake frequency: holidays/special occasions only Physical Exam Const: GENERAL APPEARANCE: cooperative, anxious and ill appearing (Mildly); not frail appearing NUTRITIONAL APPEARANCE: obese ORIENTATION/CONSCIOUSNESS: Yes awake, Yes oriented to person and Yes oriented to time HENMT: COMMON NORMALS: normocephalic, atraumatic and Normal external nose present HEAD & SCALP: normocephalic and atraumatic FACE & SINUS: normal facial exam NOSE: Normal external nose present Eye: COMMON NORMALS: Equal, round and reactive pupils present and EOMs intact bilaterally PUPIL: Yes Equal, round and reactive pupils present Neck/C-Spine: GENERAL: Yes trachea midline Chest: CHEST: Yes Symmetrical chest wall rise Resp: COMMON NORMALS: clear to auscultation bilaterally EFFORT & INSPECTION: Yes tachypneic and Yes uses accessory muscles AUSCULTATION: clear to auscultation bilaterally, no rales, no rhonchi and no wheezes Cardio: RATE: tachycardic RHYTHM: abnormal rhythm irregularly irregular GI: COMMON NORMALS: Normal to inspection, nondistended, normoactive bowel sounds present and non-tender Extremity: GENERAL: Yes edema Neuro: SENSORIUM/ORIENTATION: Yes oriented to person and Yes oriented to time Skin: NARRATIVE SKIN EXAM: Chronic stasis dermatitis lower extremities Course Vital Signs: Vital signs: Vital Signs Temperature 98.8 F 05/13/22 00:00 Pulse Rate 92 05/13/22 04:00 Respiratory Rate 12 05/13/22 04:00 Blood Pressure 107/62 05/13/22 04:00 Pulse Oximetry 99 05/13/22 04:00 Oxygen Delivery Me thod 05/13/22 00:00 Oxygen Flow Rate 4 05/13/22 00:00 MDM - Chest Pain Medical Decision Making , AndPain improved after morphine, Nitropaste, and her blood pressure. Heart rate is down after metoprolol to 90 or so. Still irregular. Saturations have been 98% on her home O2 setting. She has some strandy patchy opacities present in the right mid and lower hemithoraces possibly representing pneumonitis. BMP is not remarkable. CBC is not remarkable. Her EKG shows atrial fibrillation without acute ST or T wave changes. Her BNP is only 709. Swab for influenza and COVID-19 are negative. her baseline troponin is 13. We will await a second. Second troponin did not elevate. Pt feels much improved. She will be treated for bronchitis/pneumonitis given her negative swabs. I am reluctant to use steroid in this patient given her hx of diabetes with significant increase in BS with their use requring insulin at times. Lab Data 05/13/22 00:12 05/13/22 00:12 Radiology Impressions Chest X-Ray 05/13/22 00:03 IMPRESSION: 1. There are increased peribronchial markings on the right. 2. There are some strandy and patchy opacities present in the right mid and lower hemithoraces possibly representing superimposed atelectasis versus pneumonitis. Laboratory Results WBC 6.7 10^3/uL (4.0-10.0) 05/13/22 00:12 RBC 4.32 10^6/uL (4.1-5.3) 05/13/22 00:12 Hgb 12.4 g/dL (11.5-15.3) 05/13/22 00:12 Hct 39.3 % (37.0-47.0) 05/13/22 00:12 MCV 91.0 fl (81-99) 05/13/22 00:12 MCH 28.7 pg (28.0-34.0) 05/13/22 00:12 MCHC 31.6 g/dL (30.0-36.0) 05/13/22 00:12 RDW 14.0 % (12.1-15.1) 05/13/22 00:12 Plt Count 372 10^3/cmm (130-400) 05/13/22 00:12 MPV 9.5 fL (7.4-10.4) 05/13/22 00:12 Neut % (Auto) 37.5 % 05/13/22 00:12 Lymph % (Auto) 52.2 % 05/13/22 00:12 [place] % (Auto) 8.3 % 05/13/22 00:12 Eos % (Auto) 1.5 % 05/13/22 00:12 Baso % (Auto) 0.4 % 05/13/22 00:12 Neut # (Auto) 2.52 10^3/uL (1.8-7.7) 05/13/22 00:12 Lymph # (Auto) 3.5 10^3/uL (0.8-4.8) 05/13/22 00:12 [place] # (Auto) 0.6 10^3/uL (0.2-0.9) 05/13/22 00:12 Eos # (Auto) 0.1 10^3/uL (0.0-0.8) 05/13/22 00:12 Baso # (Auto) 0.0 10^3/uL (0.0-0.1) 05/13/22 00:12 Nucleated RBC % (auto) 0 % 05/13/22 00:12 Nucleated RBCs # 0.0 /100WBC 05/13/22 00:12 PT 15.10 SECONDS (12.1-14.9) H 05/13/22 00:12 INR 1.15 (0.8-1.2) 05/13/22 00:12 APTT 29.0 SECONDS (23.9-36.7) 05/13/22 00:12 Sodium 139 mmol/L (136-145) 05/13/22 00:12 Potassium 4.5 mmol/L (3.5-5.1) 05/13/22 00:12 Chloride 101 mmol/L (98-107) 05/13/22 00:12 Carbon Dioxide 26 mmol/L (22-29) 05/13/22 00:12 Anion Gap 16.5 (5-19) 05/13/22 00:12 BUN 22 mg/dL (8-23) 05/13/22 00:12 Creatinine 0.9 mg/dL (0.5-0.9) 05/13/22 00:12 GFR Calculation 62.3 mL/min (90-130) L 05/13/22 00:12 Glucose 123 mg/dL (65-115) H 05/13/22 00:12 Calculated Osmolality 293 mOsm/kg (285-295) 05/13/22 00:12 Calcium 9.7 mg/dL (8.5-10.5) 05/13/22 00:12 Total Bilirubin 0.2 mg/dL (0.15-1.2) 05/13/22 00:12 AST 22 U/L (0-32) 05/13/22 00:12 ALT 20 U/L (0-33) 05/13/22 00:12 Alkaline Phosphatase 77 U/L (35-105) 05/13/22 00:12 Troponin T Baseline 13 ng/L (0-10) H 05/13/22 00:12 Troponin T 120 Minute 12.43 ng/L (0-10) H 05/13/22 01:56 Delta Troponin T -0.57 ABS# (0-10) L 05/13/22 01:56 NT-Pro-B Natriuret Pep 709 pg/mL (0-125) H 05/13/22 00:12 Total Protein 7.0 g/dL (6.6-8.7) 05/13/22 00:12 Albumin 4.3 g/dL (3.5-5.2) 05/13/22 00:12 Globulin 2.7 g/dL (1.3-4.6) 05/13/22 00:12 Influenza Type A Ag negative (Negative) 05/13/22 00:32 Influenza Type B Ag negative (Negative) 05/13/22 00:32 SARS-CoV-2 Ag (Rapid) negative (Negative) 05/13/22 00:32 Discharge Plan Discharge Patient Disposition: Home Clinical Impression: Pulmonary hypertension, Acute bronchitis Condition: Stable Prescriptions: New doxycycline hyclate 100 mg tablet 100 mg PO BID 10 Days Qty: 20 0RF No Action (DME) blood-glucose meter [Accu-Chek Radha Plus Meter] Misc See Rx Instructions .ROUTE .MEDSUPPLY Qty: 1 0RF Rx Instructions: As directed (DME) Accu-Chek Radha Plus test strp Strip See Rx Instructions .ROUTE .MEDSUPPLY Qty: 200 3RF Rx Instructions: As directed twice a day cyclobenzaprine 10 mg tablet 10 mg PO DAILY PRN (Reason: muscle spasm) Qty: 30 0RF naproxen sodium [Aleve] 220 mg capsule 220 mg PO BID PRN (Reason: Pain) prenat.vits,dylan,[id number] Tablet 1 tab PO DAILY coenzyme [id number] 100-100 mg-unit capsule PO DAILY aspirin [Adult Aspirin Regimen] 81 mg tablet,delayed release (DR/EC) 81 mg PO DAILY Qty: 90 0RF isosorbide mononitrate 30 mg tablet extended release 24 hr 30 mg PO DAILY Hold Instructions: Doctor's Order albuterol sulfate 2.5 mg /3 mL (0.083 %) solution for nebulization 2.5 mg INHALATION Q4H PRN (Reason: Shortness Of Breath) Qty: 15 11RF buspirone 5 mg tablet 5 mg PO BID Qty: 60 3RF metformin 1,000 mg tablet 1,000 mg PO BID Qty: 180 3RF fluticasone propionate [Allergy Relief (fluticasone)] 50 mcg/actuation spray,suspension 2 spray intranasal DAILY PRN (Reason: allergy symptoms) Qty: 15.8 11RF Rx Instructions: administer into each nostril Rinvoq 30 mg tablet extended release 24 hr 30 mg PO DAILY Breztri Aerosphere 160-9-4.8 mcg/actuation HFA aerosol inhaler 2 inh inhalation BID Qty: 10.7 11RF metolazone 5 mg tablet 5 mg PO Q48H PRN Rx Instructions: TAKE 1 TABLET 30 MINS PRIOR TO AM FUROSEMIDE DOSE daily for 3 days then return to every other day. albuterol sulfate [ProAir HFA] 90 mcg/actuation HFA aerosol inhaler 2 inh inhalation Q6H PRN (Reason: shortness of breath or wheezing) Qty: 8.5 5RF magnesium oxide 400 mg magnesium capsule 400 mg PO .COMPLEX Qty: 32 4RF Rx Instructions: Take 2 tablets twice daily for 2 days then one tablet daily thereafter metoprolol tartrate 100 mg tablet 100 mg PO BID Qty: 180 3RF trazodone 50 mg tablet See Rx Instructions PO .QHS Qty: 60 11RF Rx Instructions: 1-2 tabs PO .QHS; (DME) cpap See Rx Instructions .Route .MEDSUPPLY Qty: 1 0RF Rx Instructions: As directed duloxetine [Cymbalta] 60 mg capsule,delayed release(DR/EC) 60 mg PO BID Qty: 60 11RF miscellaneous medical supply Misc See Rx Instructions .ROUTE .COMPLEX Qty: 1 0RF Rx Instructions: please dispense oxygen 3lnc via portable oxygen continuous. Xarelto 20 mg tablet 20 mg PO DAILY Qty: 30 0RF Rx Instructions: Must be seen by Dr Bray for further refills. Last 4 appts were cancelled Januvia 100 mg tablet 100 mg PO DAILY Qty: 90 3RF furosemide 40 mg tablet See Rx Instructions .ROUTE .COMPLEX Qty: 60 3RF Dose Instruction: TAKE ONE TABLET BY MOUTH TWICE A DAY FOR WEIGHT GAIN Rx Instructions: TAKE ONE TABLET BY MOUTH TWICE A DAY FOR WEIGHT GAIN glipizide 10 mg tablet 10 mg PO BID Qty: 60 5RF pioglitazone 45 mg tablet 45 mg PO DAILY Qty: 90 3RF epinephrine 0.3 mg/0.3 mL auto-injector 0.3 mg IM ONCE Qty: 2 4RF potassium chloride 10 mEq capsule, extended release 10 meq PO TID Qty: 90 0RF Rx Instructions: MUST have follow-up for further refills ropinirole 0.5 mg tablet See Rx Instructions .ROUTE .COMPLEX Qty: 90 11RF Dose Instruction: TAKE ONE TABLET BY MOUTH 3 TIMES DAILY Rx Instructions: TAKE ONE TABLET BY MOUTH 3 TIMES DAILY nitroglycerin 0.4 mg tablet, sublingual 0.4 mg SUBLINGUAL Q5M PRN (Reason: chest pain) Qty: 25 2RF Rx Instructions: Call ambulance if pain is not resolved with 2. levofloxacin 500 mg tablet 500 mg PO Q24H 10 Days Qty: 10 0RF omeprazole 20 mg capsule,delayed release(DR/EC) See Rx Instructions .ROUTE .COMPLEX Qty: 90 3RF Dose Instruction: TAKE ONE CAPSULE BY MOUTH ONCE DAILY Rx Instructions: TAKE ONE CAPSULE BY MOUTH ONCE DAILY Discharge Orders: Discharge ED (Routine); Ordered 05/13/22 Ordered By: Jamari Couch Referrals: Yassine Mason DO [Primary Care Provider] - 1-3 days Patient Instructions: Chest Pain (ED), Acute Bronchitis (ED) Activity Restrictions/Additional Instructions: Return for worsening shortness of breath or chest discomfort despite treatment, fever greater than 100 despite 2-3 doses of antibiotics, any other concerning symptoms. Coding Level of Care Code ED Well Control Instructor for Shaun Fwd Exam Comprehensive
--- NOTE | 2022-05-13 02:03 | ECG_ITS ---
[facility] Test Date: 2022-05-13 Pat Name: Macarena Guardado (Cindi) Department: Room: Gender: Female Liquor Clerk: : 1955 Requested By: Jamari Uribe Order Number: [id number] Reading MD: Galo Bocanegra M.D. Measurements Intervals [place] Rate: 82 P: 0 SC: 0 QRS: -25 QRSD: 91 T: 25 QT: 360 QTc: 423 Interpretive Statements ATRIAL FIBRILLATION LOW QRS VOLTAGE IN PRECORDIAL LEADS [QRS DEFLECTION < 1.0 mV IN CHEST LEADS] POSSIBLE ANTERIOR MYOCARDIAL INFARCTION , PROBABLY OLD [30 ms Q WAVE IN V3/V4, OR R < 0.2 mV IN V4] ABNORMAL RHYTHM ECG Compared to ECG 04/10/2021 18:38:44 No significant changes Electronically Signed On 05-13-2022 20:19:21 INTERVENTIONAL NURSE by Galo Bocanegra M.D. [email or web address]
[2022-05-13 02:25] LABS: Troponin 5 2HR 12.43 ng/L (0-10)
[2022-05-13 02:33] LABS: Troponin 5 2HR Delta -0.57 ABS# (0-10)
== END 2022-05-13 05:40 | disposition home or self-care (01) ==
PROVIDERS: Emergency Provider Emergency Medicine; PCP Family Medicine
DX: J20.9 Acute bronchitis, unspecified (principal); I27.20 Pulmonary hypertension, unspecified; Z79.82 Long term (current) use of aspirin; Z79.84 Long term (current) use of oral hypoglycemic drugs; Z20.822 Contact with and (suspected) exposure to COVID-19; I25.10 Atherosclerotic heart disease of native coronary artery without angina pectoris; I11.0 Hypertensive heart disease with heart failure; I50.9 Heart failure, unspecified; E11.9 Type 2 diabetes mellitus without complications; E72.3 Disorders of lysine and hydroxylysine metabolism; Z86.73 Personal history of transient ischemic attack (TIA), and cerebral infarction without residual deficits
CPT/HCPCS: 71045; 80053; 83880; 84484; 85025; 85610; 85730; 87426; 87804; 93005; 96374; 96375; 99285; J1940; J2270; J2405; J3490

== ENCOUNTER 2022-05-27 21:26 | Emergency (ER) | payer MEDICARE, SELFPAY ==
--- NOTE | 2022-05-27 21:31 | ECG_ITS ---
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 Measurements Intervals [place] Rate: 87 P: 0 AK: 0 QRS: -32 QRSD: 98 T: 56 QT: 373 QTc: 451 Interpretive Statements ATRIAL FIBRILLATION LEFT AXIS DEVIATION [QRS AXIS < -30] LOW QRS VOLTAGE IN PRECORDIAL LEADS [QRS DEFLECTION < 1.0 mV IN CHEST LEADS] POSSIBLE ANTERIOR MYOCARDIAL INFARCTION , PROBABLY OLD [30 ms Q WAVE IN V3/V4, OR R < 0.2 mV IN V4] Compared to ECG 05/13/2022 02:05:04 Left-axis deviation now present Myocardial infarct finding still present Electronically Signed On 05-29-2022 7:43:36 ELEMENTARY SECRETARY by Williams Diaz M.D. [id number]
[2022-05-27 21:33] VITALS: BP 143/89; PULSE 87; RESP 18; TEMP 36.8; O2SAT 95; BMI 53.1
--- NOTE | 2022-05-27 22:10 | XRR_ITS ---
PROCEDURE INFORMATION: Exam: XR Chest Exam date and time: 05/27/2022 10:39 PM Age: 66 years old Clinical indication: Pain; Chest pressure; Additional info: Cp TECHNIQUE: Imaging protocol: Radiologic exam of the chest. Views: 1 view. COMPARISON: CR (CHEST, ) 05/13/2022 12:31 AM FINDINGS: Lungs: Lung volumes are low. Central interstitial markings are carotid. There is no focal consolidation. Pleural spaces: There is no pleural effusion or pneumothorax. Heart/Mediastinum: There is mild enlargement of the cardiac silhouette. Bones/joints: Bones are unremarkable. XR/XR chest 1V portable [id number] IMPRESSION: 1. No acute findings. Limited exam due to low lung volumes. 2. Cardiac enlargement.
[2022-05-27 22:33] LABS: Basophils % 0.5 %; Eosinophils # 0.1 10^3/uL (0.0-0.8); Eosinophils % 2.3 %; Hemoglobin 12.6 g/dL (11.5-15.3); Lymphocytes # 3.1 10^3/uL (0.8-4.8); Lymphocytes % 50.3 %; Mean Corpuscular HGB Conc 32.3 g/dL (30.0-36.0); Mean Corpuscular Hemoglobin 28.6 pg (28.0-34.0); Mean Corpuscular Volume 88.6 fl (81-99); Mean Platelet Volume 9.7 fL (7.4-10.4); Monocytes # 0.6 10^3/uL (0.2-0.9); Monocytes % 8.8 %; Neutrophils # 2.36 10^3/uL (1.8-7.7); Neutrophils % 37.9 %; Nucleated Red Blood Cells % 0 %; Platelet Count 345 10^3/cmm (130-400); Red Cell Distribution Width 13.7 % (12.1-15.1); White Blood Count 6.2 10^3/uL (4.0-10.0)
[2022-05-27 22:37] VITALS: BP 147/90; PULSE 80; RESP 16; O2SAT 100
[2022-05-27 22:46] LABS: INR 1.26 (0.8-1.2)
[2022-05-27 22:47] LABS: Partial Thromboplastin Time 33.8 SECONDS (23.9-36.7)
[2022-05-27 22:59] LABS: Troponin(5th) Baseline 13 ng/L (0-10)
[2022-05-27 23:08] LABS: Alanine Aminotransferase 23 U/L (0-33); Alkaline Phosphatase 85 U/L (35-105); Aspartate Amino Transferase 22 U/L (0-32); Blood Urea Nitrogen 19 mg/dL (8-23); Calcium 10.1 mg/dL (8.5-10.5); Carbon Dioxide 26 mmol/L (22-29); Chloride 98 mmol/L (98-107); Globulin 3.3 g/dL (1.3-4.6); Glomerular Filtration Rate 62.3 mL/min (90-130); Glucose 144 mg/dL (65-115); NT Pro B Type Natriuretic Pept 581 pg/mL (0-125); Osmolality Calculated 287 mOsm/kg (285-295); Sodium 136 mmol/L (136-145); Total Bilirubin 0.2 mg/dL (0.15-1.2); Total Protein 7.3 g/dL (6.6-8.7)
[2022-05-27] MEDS: ondansetron 2 mg/ML SDV 2 mL 4 MG IVP (23:08)
[2022-05-27 23:12] VITALS: RESP 18; O2SAT 97
[2022-05-27] MEDS: morphine 4 mg/mL SDV 1 mL IVP (23:12)
[2022-05-28 01:00] VITALS: BP 140/73; PULSE 83; RESP 16; O2SAT 99
[2022-05-28 02:00] VITALS: BP 119/75; PULSE 83; RESP 15; O2SAT 98
[2022-05-28 02:32] LABS: Troponin 5 2HR 11.33 ng/L (0-10)
[2022-05-28 02:35] LABS: Troponin 5 2HR Delta -1.67 ABS# (0-10)
--- NOTE | 2022-05-28 02:47 | W.ED.CHESTPA ---
HPI - Chest Pain General: Chief Complaint: Chest Pain Stated Complaint: sob,cp Time Seen by Provider: 05/27/22 21:48 History of Present Illness: 66-year-old female with a history of atrial fibrillation, heart failure, and coronary artery disease. She presents with left-sided chest discomfort radiating into her left arm and back. She complains of being short of breath as well. No fever. No significant increased cough. She notes less edema lately, as her Lasix had been increased to 80 mg daily by her PCP. MD complaint: chest pain Pertinent past history: coronary artery disease and other Onset (ago): day(s) Timing of current episode: episodic Prior episodes: Yes Pain location: left chest Pain radiation: left arm and back Quality: aching and sharp Associated symptoms: Reports abdominal pain, dyspnea and vomiting; Deny fever(s) or palpitations Review of Systems Const: Denies: fever(s) ENMT: Denies: throat pain Card: Reports: chest pain; Denies: palpitations Resp: Reports: dyspnea; Denies: productive cough or non-productive cough GI: Reports: abdominal pain and vomiting Musc: Reports: back pain PFSH ED PFSH: Medical History Anemia Anxiety disorder Bilateral leg cramps CAD (coronary artery disease) Cardiac arrhythmia Chest pain CHF (congestive heart failure) CHF (congestive heart failure), NYHA class III Diabetes Diabetic polyneuropathy Diastolic dysfunction Enrolled in chronic care management GERD (gastroesophageal reflux disease) Hiatal hernia History of nonmelanoma skin cancer HTN (hypertension) Hx MRSA infection Hyperlipidemia Interstitial lung disease Morbid obesity Myalgia Panic disorder Post-traumatic stress disorder, chronic Pulmonary hypertension Restless leg syndrome Rheumatoid arthritis Shortness of breath Sleep apnea TIA (transient ischemic attack) Surgical History S/P appendectomy S/P knee surgery Multiple S/P tubal ligation Family History Mother , age 91 Heart disease Diabetes Cancer Breast, cervical, lung Father , Age 93 - CHF Heart disease Grandmother Diabetes Maternal Social History Smoking and tobacco status: never smoked Alcohol intake: current Alcohol intake frequency: holidays/special occasions only Current occupation: retired Physical Exam Const: COMMON NORMALS: no acute distress GENERAL APPEARANCE: cooperative; not ill appearing and not frail appearing HENMT: COMMON NORMALS: normocephalic, atraumatic and Normal external nose present HEAD & SCALP: normocephalic and atraumatic FACE & SINUS: normal facial exam and face symmetric NOSE: Normal external nose present Eye: COMMON NORMALS: Equal, round and reactive pupils present and EOMs intact bilaterally PUPIL: Yes Equal, round and reactive pupils present Neck/C-Spine: GENERAL: Yes trachea midline Chest: CHEST: Yes Symmetrical chest wall rise Resp: COMMON NORMALS: normal respiratory effort, No retractions, No use of accessory muscles and clear to auscultation bilaterally AUSCULTATION: clear to auscultation bilaterally Cardio: COMMON NORMALS: regular rate and regular rhythm RATE: regular rate RHYTHM: regular rhythm GI: COMMON NORMALS: Normal to inspection, nondistended, normoactive bowel sounds present Extremity: COMMON NORMALS: no pedal edema Neuro: KASI COMA SCALE: document GCS findings Kasi coma scale eye opening: Spontaneous Kasi coma scale verbal response: Orientated Kasi coma scale motor response: Obey commands Kasi coma scale total score: 15 SENSORY EXAM: Yes extremities (intact) Psych: COMMON NORMALS: speech normal SPEECH: Yes normal speech Skin: COMMON NORMALS: no rashes or lesions noted GENERAL SKIN EXAM: no rashes or lesions noted Course Vital Signs: Vital signs: Vital Signs Temperature 98.2 F 05/27/22 21:33 Pulse Rate 80 05/27/22 22:37 Respiratory Rate 18 05/27/22 23:12 Blood Pressure 147/90 05/27/22 22:37 Pulse Oximetry 97 05/27/22 23:12 Oxygen Delivery Me thod 05/27/22 22:37 Oxygen Flow Rate 4 05/27/22 21:33 MDM - Chest Pain Medical Decision Making Patient is stable here. Blood pressure 122/86 heart rate 90 saturations 100% on her home 4 L. CBC is normal. BMP is normal. Sugar is 144. Troponin is 13 and 11 at 0 and 2 hours respectively. She is anticoagulated. Her BNP is 581. Her chest x-ray is nonacute. The cause of her chest pain at this point is undetermined. We will treat her symptomatically at this point Lab Data 05/27/22:05/27/22: Radiology Impressions Chest X-Ray 05/27/22: IMPRESSION: 1. No acute findings. Limited exam due to low lung volumes. 2. Cardiac enlargement. Laboratory Results WBC 6.2 10^3/uL (4.0-10.0) 05/27/22: RBC 4.40 10^6/uL (4.1-5.3) 05/27/22: Hgb 12.6 g/dL (11.5-15.3) 05/27/22: Hct 39.0 % (37.0-47.0) 05/27/22: MCV 88.6 fl (81-99) 05/27/22: MCH 28.6 pg (28.0-34.0) 05/27/22 MCHC 32.3 g/dL (30.0-36.0) 05/27/22: RDW 13.7 % (12.1-15.1) 05/27/22: Plt Count 345 10^3/cmm (130-400) 05/27/22: MPV 9.7 fL (7.4-10.4) 05/27/22: Neut % (Auto) 37.9 % 05/27/22: Lymph % (Auto) 50.3 % 05/27/22 [place] % (Auto) 8.8 % 05/27/22 Eos % (Auto) 2.3 % 05/27/22 Baso % (Auto) 0.5 % 05/27/22 Neut # (Auto) 2.36 10^3/uL (1.8-7.7) 05/27/22: Lymph # (Auto) 3.1 10^3/uL (0.8-4.8) 05/27/22 [place] # (Auto) 0.6 10^3/uL (0.2-0.9) 05/27/22: Eos # (Auto) 0.1 10^3/uL (0.0-0.8) 05/27/22 Baso # (Auto) 0.0 10^3/uL (0.0-0.1) 05/27/22 22:25 Nucleated RBC % (auto) 0 % 05/27/22 22:25 Nucleated RBCs # 0.0 /100WBC 05/27/22 22:25 PT 16.10 SECONDS (12.1-14.9) H 05/27/22 22:25 INR 1.26 (0.8-1.2) H 05/27/22 22:25 APTT 33.8 SECONDS (23.9-36.7) 05/27/22 22:25 Sodium 136 mmol/L (136-145) 05/27/22 22:25 Potassium 4.0 mmol/L (3.5-5.1) 05/27/22 22:25 Chloride 98 mmol/L (98-107) 05/27/22 22:25 Carbon Dioxide 26 mmol/L (22-29) 05/27/22 22:25 Anion Gap 16.0 (5-19) 05/27/22 22:25 BUN 19 mg/dL (8-23) 05/27/22 22:25 Creatinine 0.9 mg/dL (0.5-0.9) 05/27/22 22:25 GFR Calculation 62.3 mL/min (90-130) L 05/27/22 22:25 Glucose 144 mg/dL (65-115) H 05/27/22 22:25 Calculated Osmolality 287 mOsm/kg (285-295) 05/27/22 22:25 Calcium 10.1 mg/dL (8.5-10.5) 05/27/22 22:25 Total Bilirubin 0.2 mg/dL (0.15-1.2) 05/27/22 22:25 AST 22 U/L (0-32) 05/27/22 22:25 ALT 23 U/L (0-33) 05/27/22 22:25 Alkaline Phosphatase 85 U/L (35-105) 05/27/22 22:25 Troponin T Baseline 13 ng/L (0-10) H 05/27/22 22:25 Troponin T 120 Minute 11.33 ng/L (0-10) H 05/28/22 01:54 Delta Troponin T -1.67 ABS# (0-10) L 05/28/22 01:54 NT-Pro-B Natriuret Pep 581 pg/mL (0-125) H 05/27/22 22:25 Total Protein 7.3 g/dL (6.6-8.7) 05/27/22 22:25 Albumin 4.0 g/dL (3.5-5.2) 05/27/22 22:25 Globulin 3.3 g/dL (1.3-4.6) 05/27/22 22:25 Discharge Plan Discharge Patient Disposition: Home Clinical Impression: Chest pain Condition: Stable Prescriptions: New ketorolac 10 mg tablet 10 mg PO TID PRN (Reason: pain) Qty: 10 0RF No Action (DME) blood-glucose meter [Accu-Chek Radha Plus Meter] Misc See Rx Instructions .ROUTE .MEDSUPPLY Qty: 1 0RF Rx Instructions: As directed (DME) Accu-Chek Radha Plus test strp Strip See Rx Instructions .ROUTE .MEDSUPPLY Qty: 200 3RF Rx Instructions: As directed twice a day cyclobenzaprine 10 mg tablet 10 mg PO DAILY PRN (Reason: muscle spasm) Qty: 30 0RF naproxen sodium [Aleve] 220 mg capsule 220 mg PO BID PRN (Reason: Pain) prenat.vits,dylan,gpl-mkrc-rwnbc Tablet 1 tab PO DAILY coenzyme X99-tvavgtt E 100-100 mg-unit capsule PO DAILY aspirin [Adult Aspirin Regimen] 81 mg tablet,delayed release (DR/EC) 81 mg PO DAILY Qty: 90 0RF isosorbide mononitrate 30 mg tablet extended release 24 hr 30 mg PO DAILY Hold Instructions: Doctor's Order albuterol sulfate 2.5 mg /3 mL (0.083 %) solution for nebulization 2.5 mg INHALATION Q4H PRN (Reason: Shortness Of Breath) Qty: 15 11RF buspirone 5 mg tablet 5 mg PO BID Qty: 60 3RF metformin 1,000 mg tablet 1,000 mg PO BID Qty: 180 3RF fluticasone propionate [Allergy Relief (fluticasone)] 50 mcg/actuation spray,suspension 2 spray intranasal DAILY PRN (Reason: allergy symptoms) Qty: 15.8 11RF Rx Instructions: administer into each nostril Rinvoq 30 mg tablet extended release 24 hr 30 mg PO DAILY Breztri Aerosphere 160-9-4.8 mcg/actuation HFA aerosol inhaler 2 inh inhalation BID Qty: 10.7 11RF metolazone 5 mg tablet 5 mg PO Q48H PRN Rx Instructions: TAKE 1 TABLET 30 MINS PRIOR TO AM FUROSEMIDE DOSE daily for 3 days then return to every other day. albuterol sulfate [ProAir HFA] 90 mcg/actuation HFA aerosol inhaler 2 inh inhalation Q6H PRN (Reason: shortness of breath or wheezing) Qty: 8.5 5RF magnesium oxide 400 mg magnesium capsule 400 mg PO .COMPLEX Qty: 32 4RF Rx Instructions: Take 2 tablets twice daily for 2 days then one tablet daily thereafter metoprolol tartrate 100 mg tablet 100 mg PO BID Qty: 180 3RF trazodone 50 mg tablet See Rx Instructions PO .QHS Qty: 60 11RF Rx Instructions: 1-2 tabs PO .QHS; (DME) cpap See Rx Instructions .Route .MEDSUPPLY Qty: 1 0RF Rx Instructions: As directed duloxetine [Cymbalta] 60 mg capsule,delayed release(DR/EC) 60 mg PO BID Qty: 60 11RF miscellaneous medical supply Misc See Rx Instructions .ROUTE .COMPLEX Qty: 1 0RF Rx Instructions: please dispense oxygen 3lnc via portable oxygen continuous. Xarelto 20 mg tablet 20 mg PO DAILY Qty: 30 0RF Rx Instructions: Must be seen by Dr Bray for further refills. Last 4 appts were cancelled Januvia 100 mg tablet 100 mg PO DAILY Qty: 90 3RF furosemide 40 mg tablet See Rx Instructions .ROUTE .COMPLEX Qty: 60 3RF Dose Instruction: TAKE ONE TABLET BY MOUTH TWICE A DAY FOR WEIGHT GAIN Rx Instructions: TAKE ONE TABLET BY MOUTH TWICE A DAY FOR WEIGHT GAIN glipizide 10 mg tablet 10 mg PO BID Qty: 60 5RF pioglitazone 45 mg tablet 45 mg PO DAILY Qty: 90 3RF epinephrine 0.3 mg/0.3 mL auto-injector 0.3 mg IM ONCE Qty: 2 4RF ropinirole 0.5 mg tablet See Rx Instructions .ROUTE .COMPLEX Qty: 90 11RF Dose Instruction: TAKE ONE TABLET BY MOUTH 3 TIMES DAILY Rx Instructions: TAKE ONE TABLET BY MOUTH 3 TIMES DAILY nitroglycerin 0.4 mg tablet, sublingual 0.4 mg SUBLINGUAL Q5M PRN (Reason: chest pain) Qty: 25 2RF Rx Instructions: Call ambulance if pain is not resolved with 2. levofloxacin 500 mg tablet 500 mg PO Q24H 10 Days Qty: 10 0RF omeprazole 20 mg capsule,delayed release(DR/EC) See Rx Instructions .ROUTE .COMPLEX Qty: 90 3RF Dose Instruction: TAKE ONE CAPSULE BY MOUTH ONCE DAILY Rx Instructions: TAKE ONE CAPSULE BY MOUTH ONCE DAILY potassium chloride 10 mEq capsule, extended release 10 meq PO TID Qty: 90 0RF Rx Instructions: MUST have follow-up for further refills Discharge Orders: Discharge ED (Routine); Ordered 05/28/22 Ordered By: Jamari Couch Referrals: Yassine Mason, [Primary Care Provider] - 1-3 days Patient Instructions: Chest Pain (ED), Pain Management Activity Restrictions/Additional Instructions: Your work-up in the emergency department did not reveal a cause of your chest pain this morning. Your heart enzymes did not elevate, meaning there was no heart attack. We do not see signs of acute heart failure. Take the medication you were prescribed 3 times daily scheduled for the next 3 days. Avoid ibuprofen, Aleve, or other NSAIDs while taking the medication. This is for relief of chest wall pain. Return for any worsening symptoms such as worsening shortness of breath, worsening pain, fever, or any other concerns. See your doctor this week. Coding Level of Care Code ED Wringer Machine Operator for Shaun Ocampo
[2022-05-28 03:00] VITALS: BP 122/86; PULSE 97; O2SAT 100
[2022-05-28 03:55] VITALS: BP 115/75; PULSE 82; RESP 18; O2SAT 98
== END 2022-05-28 03:37 | disposition home or self-care (01) ==
PROVIDERS: Emergency Provider Emergency Medicine; PCP Family Medicine
DX: R07.9 Chest pain, unspecified (principal); Z79.82 Long term (current) use of aspirin; Z79.84 Long term (current) use of oral hypoglycemic drugs; I25.10 Atherosclerotic heart disease of native coronary artery without angina pectoris; I11.0 Hypertensive heart disease with heart failure; I50.9 Heart failure, unspecified; E11.9 Type 2 diabetes mellitus without complications; E78.5 Hyperlipidemia, unspecified; Z86.73 Personal history of transient ischemic attack (TIA), and cerebral infarction without residual deficits
CPT/HCPCS: 71045; 80053; 83880; 84484; 85025; 85610; 85730; 93005; 96374; 96375; 99285; J2270; J2405

== ENCOUNTER → 2022-08-08 10:26 | Outpatient (BNVA) | payer MEDICARE, SELFPAY | PROVIDERS: PCP Family Medicine; Visit Provider Internal Medicine | DX: E11.59 Type 2 diabetes mellitus with other circulatory complications (principal); E11.42 Type 2 diabetes mellitus with diabetic polyneuropathy; I50.9 Heart failure, unspecified; E78.2 Mixed hyperlipidemia; Z79.84 Long term (current) use of oral hypoglycemic drugs; Z87.440 Personal history of urinary (tract) infections | CPT/HCPCS: 99204 ==

== ENCOUNTER 2022-09-10 06:29 | Observation (INO) | payer MEDICARE, SELFPAY ==
[2022-09-10] VITALS (11 sets, daily range): BP systolic 128–156; BP diastolic 80–127; PULSE 87–98; RESP 14–20; TEMP 36.5–37.1; O2SAT 96–100; BMI 58.3
--- NOTE | 2022-09-10 06:33 | XRR_ITS ---
PROCEDURE INFORMATION: Exam: XR Chest Exam date and time: 09/10/2022 7:03 AM Age: 66 years old Clinical indication: Pain; Angina pectoris; Additional info: Chest pain TECHNIQUE: Imaging protocol: Radiologic exam of the chest. Views: 1 view. COMPARISON: CR XR chest 1V portable [id number] 05/27/2022 10:39 PM FINDINGS: Lungs: Streaky bibasilar atelectasis, right greater than left. Pneumonia should be excluded clinically. Mildly increased lung markings. Pleural spaces: Unremarkable. No pleural effusion. No pneumothorax. Heart/Mediastinum: Stable cardiomediastinal silhouette. Bones/joints: Unremarkable. XR/XR chest 1V portable [id number] IMPRESSION: Nonspecific imaging findings, which can be seen with mild pulmonary congestion or pneumonia. Clinical correlation is recommended.
--- NOTE | 2022-09-10 06:41 | ECG_ITS ---
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 Measurements Intervals [place] Rate: 86 P: 0 MI: 0 QRS: 38 QRSD: 86 T: -3 QT: 346 QTc: 415 Interpretive Statements ATRIAL FIBRILLATION INDETERMINATE AXIS LOW QRS VOLTAGE [QRS DEFLECTION < 0.5/1.0 mV IN LIMB/CHEST LEADS] PATTERN CONSISTENT WITH PULMONARY DISEASE Compared to ECG 05/27/2022 21:31:52 Indeterminate axis now present Left-axis deviation no longer present Myocardial infarct finding no longer present Electronically Signed On 09-10-2022 17:08:19 CDT by Jamison Linton M.D. [id number]
--- NOTE | 2022-09-10 06:46 | PC.NURSE ---
asa given area captain by ems. ed order cancelled.
--- NOTE | 2022-09-10 07:02 | W.ED.CHESTPA ---
HPI - Chest Pain General: Chief Complaint: Chest Pain Stated Complaint: Chest Pain Time Seen by Provider: 09/10/22 06:32 Source: patient Mode of arrival: EMS History of Present Illness: 66-year-old female presents to the emergency room with complaints of chest pain. She has a history of atrial fibrillation felt like her A-fib was bothering her last night. She felt palpitations rapid heart rate after that she began to get left-sided chest pain radiating into her left shoulder. She took a total of 3 nitro reports that she got relief of her discomfort 1 to 2 minutes after the third sublingual nitro. She has no known history of coronary artery disease. She is not previously had stents or angiograms. She is on Xarelto for her atrial fibrillation. She is diabetic and morbidly obese. Patient is chronically on 4 L oxygen by nasal cannula has a history of congestive heart failure and pulmonary hypertension MD complaint: chest pain Onset (ago): hour(s) Timing of current episode: episodic Onset: during rest Pain location: substernal Pain radiation: left shoulder Severity: moderate Quality: sharp Relieving factors: nitroglycerin Exacerbating factors: nothing Associated symptoms: Deny abdominal pain, diaphoresis, dyspnea, fever(s), leg edema, nausea, palpitations, sense of impending doom, syncope or vomiting Treatment prior to arrival: aspirin and nitroglycerin Risk Factors: Coronary artery disease risk factors: diabetes and hypertension Review of Systems Const: Denies: fever(s), chills, fatigue, malaise or diaphoresis ENMT: Denies: throat pain, ear or mastoid pain, nasal discharge or nasal congestion Card: Denies: palpitations or syncope Resp: Denies: dyspnea GI: Denies: abdominal pain, nausea or vomiting : Denies: flank pain, difficulty voiding, dysuria, urinary frequency or urinary urgency Skin/Breast: Denies: rash or pruritus ON LICENSE OF [facility] ED PFSH: Medical History (Updated 09/10/22 @ 12:37 by Obey March MD) Anemia Anxiety disorder Bilateral leg cramps CAD (coronary artery disease) Cardiac arrhythmia Chest pain CHF (congestive heart failure) CHF (congestive heart failure), NYHA class III Diabetes Diabetic polyneuropathy Diastolic dysfunction Enrolled in chronic care management GERD (gastroesophageal reflux disease) Hiatal hernia History of nonmelanoma skin cancer HTN (hypertension) Hx MRSA infection Hyperlipidemia Interstitial lung disease Morbid obesity Myalgia Panic disorder Post-traumatic stress disorder, chronic Pulmonary hypertension Restless leg syndrome Rheumatoid arthritis Shortness of breath Sleep apnea TIA (transient ischemic attack) Surgical History S/P appendectomy S/P knee surgery Multiple S/P tubal ligation Family History Mother , age 91 Heart disease Diabetes Cancer Breast, cervical, lung Father , Age 93 - CHF Heart disease Grandmother Diabetes Maternal Social History Smoking and tobacco status: never smoked Alcohol intake: current Alcohol intake frequency: holidays/special occasions only Substance/Drug Use: never Current occupation: retired Physical Exam Const: GENERAL APPEARANCE: cooperative and comfortable NUTRITIONAL APPEARANCE: obese ORIENTATION/CONSCIOUSNESS: Yes awake, Yes oriented to person, Yes oriented to place and Yes oriented to time HENMT: COMMON NORMALS: normocephalic, atraumatic and hearing grossly normal bilaterally HEAD & SCALP: normocephalic and atraumatic Resp: COMMON NORMALS: normal respiratory effort, No retractions, No use of accessory muscles and clear to auscultation bilaterally AUSCULTATION: clear to auscultation bilaterally Cardio: COMMON NORMALS: regular rate, regular rhythm and No murmurs present (Cardio) RATE: regular rate RHYTHM: regular rhythm GI: COMMON NORMALS: Soft to palpation and No hepatosplenomegaly present AUSCULTATION: Yes normoactive bowel sounds PALPATION: Yes Soft to palpation, No Tenderness to palpation present (GI), No Guarding due to palpation present (GI) and Yes No hepatosplenomegaly present Extremity: COMMON NORMALS: normal to inspection, capillary refill normal, no clubbing, cyanosis or edema, no calf tenderness and no pedal edema Neuro: SENSORIUM/ORIENTATION: Yes oriented to person, Yes oriented to place and Yes oriented to time Skin: COMMON NORMALS: no rashes or lesions noted GENERAL SKIN EXAM: no rashes or lesions noted Course Vital Signs: Vital signs: Vital Signs Temperature 98.0 F 09/11/22 03:51 Pulse Rate 102 H 09/11/22 03:51 Respiratory Rate 16 09/11/22 03:51 Blood Pressure 124/66 09/11/22 03:51 Pulse Oximetry 93 09/11/22 03:51 Oxygen Delivery Me thod Nasal Cannula 09/11/22 03:51 Oxygen Flow Rate 3 09/11/22 03:51 MDM - Chest Pain Medical Decision Making Cardiac enzymes and EKG unremarkable however patient states she has had chest pain intermittently for some time its been escalating to the episode of woke her up today that was relieved by nitro when I went to talk to her after her cardiac enzymes had resolved she said it was beginning to bother more again. She has a history of pulmonary hypertension however she is not more short of breath than usual is maintaining normal oxygen sats on her usual supplemental oxygen. There is no sign of pneumonia or pneumothorax no symptoms at this time suggestive of pulmonary embolism. No masses on the chest x-ray. Topical nitro applied which did improve her symptoms. Will obs for further evaluation for cause of her chest pain. Medical Records I reviewed the patient's medical records. Lab Data I reviewed the patient's lab results. 09/11/22 04:27 09/11/22 04:27 Radiology Impressions Chest X-Ray 09/10/22 06:33 IMPRESSION: Nonspecific imaging findings, which can be seen with mild pulmonary congestion or pneumonia. Clinical correlation is recommended. Laboratory Results WBC 7.0 10^3/uL (4.0-10.0) 09/10/22 06:50 RBC 3.88 10^6/uL (4.1-5.3) L 09/10/22 06:50 Hgb 11.1 g/dL (11.5-15.3) L 09/10/22 06:50 Hct 34.6 % (37.0-47.0) L 09/10/22 06:50 MCV 89.2 fl (81-99) 09/10/22 06:50 MCH 28.6 pg (28.0-34.0) 09/10/22 06:50 MCHC 32.1 g/dL (30.0-36.0) 09/10/22 06:50 RDW 15.0 % (12.1-15.1) 09/10/22 06:50 Plt Count 335 10^3/cmm (130-400) 09/10/22 06:50 MPV 9.8 fL (7.4-10.4) 09/10/22 06:50 Neut % (Auto) 57.2 % 09/10/22 06:50 Lymph % (Auto) 30.4 % 09/10/22 06:50 [place] % (Auto) 10.0 % 09/10/22 06:50 Eos % (Auto) 1.6 % 09/10/22 06:50 Baso % (Auto) 0.4 % 09/10/22 06:50 Neut # (Auto) 3.99 10^3/uL (1.8-7.7) 09/10/22 06:50 Lymph # (Auto) 2.1 10^3/uL (0.8-4.8) 09/10/22 06:50 [place] # (Auto) 0.7 10^3/uL (0.2-0.9) 09/10/22 06:50 Eos # (Auto) 0.1 10^3/uL (0.0-0.8) 09/10/22 06:50 Baso # (Auto) 0.0 10^3/uL (0.0-0.1) 09/10/22 06:50 Nucleated RBC % (auto) 0 % 09/10/22 06:50 Nucleated RBCs # 0.0 /100WBC 09/10/22 06:50 Sodium 136 mmol/L (136-145) 09/10/22 06:50 Potassium 4.3 mmol/L (3.5-5.1) 09/10/22 06:50 Chloride 101 mmol/L (98-107) 09/10/22 06:50 Carbon Dioxide 21 mmol/L (22-29) L 09/10/22 06:50 Anion Gap 18.3 (5-19) 09/10/22 06:50 BUN 25 mg/dL (8-23) H 09/10/22 06:50 Creatinine 0.9 mg/dL (0.5-0.9) 09/10/22 06:50 GFR Calculation 62.3 mL/min (90-130) L 09/10/22 06:50 Glucose 132 mg/dL (65-115) H 09/10/22 06:50 POC Glucose 115 mg/dL (70-110) H 09/10/22 12:28 Calculated Osmolality 288 mOsm/kg (285-295) 09/10/22 06:50 Calcium 8.6 mg/dL (8.5-10.5) 09/10/22 06:50 Total Bilirubin 0.2 mg/dL (0.15-1.2) 09/10/22 06:50 AST 30 U/L (0-32) 09/10/22 06:50 ALT 29 U/L (0-33) 09/10/22 06:50 Alkaline Phosphatase 84 U/L (35-105) 09/10/22 06:50 Troponin T Baseline 17 ng/L (0-10) H 09/10/22 06:50 Troponin T 120 Minute 15.38 ng/L (0-10) H 09/10/22 08:55 Delta Troponin T -1.62 ABS# (0-10) L 09/10/22 08:55 Total Protein 6.4 g/dL (6.6-8.7) L 09/10/22 06:50 Albumin 3.5 g/dL (3.5-5.2) 09/10/22 06:50 Globulin 2.9 g/dL (1.3-4.6) 09/10/22 06:50 TSH 4.67 uIU/mL (0.27-4.20) H 09/10/22 06:50 Discharge Plan Discharge Patient Disposition: Placed in Observation Admit Provider: Sandra March Clinical Impression: Unstable angina, Atrial fibrillation, HTN (hypertension), Morbid obesity Coding Level of Care Code ED Help Desk Representative for Shaun Ocampo
[2022-09-10 07:12] LABS: Basophils % 0.4 %; Eosinophils # 0.1 10^3/uL (0.0-0.8); Eosinophils % 1.6 %; Hematocrit 34.6 % (37.0-47.0); Hemoglobin 11.1 g/dL (11.5-15.3); Lymphocytes # 2.1 10^3/uL (0.8-4.8); Lymphocytes % 30.4 %; Mean Corpuscular HGB Conc 32.1 g/dL (30.0-36.0); Mean Corpuscular Hemoglobin 28.6 pg (28.0-34.0); Mean Corpuscular Volume 89.2 fl (81-99); Mean Platelet Volume 9.8 fL (7.4-10.4); Monocytes # 0.7 10^3/uL (0.2-0.9); Neutrophils # 3.99 10^3/uL (1.8-7.7); Neutrophils % 57.2 %; Nucleated Red Blood Cells % 0 %; Platelet Count 335 10^3/cmm (130-400); Red Blood Count 3.88 10^6/uL (4.1-5.3)
[2022-09-10 07:33] LABS: Alanine Aminotransferase 29 U/L (0-33); Albumin Level 3.5 g/dL (3.5-5.2); Alkaline Phosphatase 84 U/L (35-105); Aspartate Amino Transferase 30 U/L (0-32); Blood Urea Nitrogen 25 mg/dL (8-23); Calcium 8.6 mg/dL (8.5-10.5); Carbon Dioxide 21 mmol/L (22-29); Chloride 101 mmol/L (98-107); Globulin 2.9 g/dL (1.3-4.6); Glomerular Filtration Rate 62.3 mL/min (90-130); Glucose 132 mg/dL (65-115); Osmolality Calculated 288 mOsm/kg (285-295); Sodium 136 mmol/L (136-145); Total Bilirubin 0.2 mg/dL (0.15-1.2); Total Protein 6.4 g/dL (6.6-8.7); Troponin(5th) Baseline 17 ng/L (0-10)
[2022-09-10 07:37] LABS: Anion Gap 18.3 (5-19); Potassium 4.3 mmol/L (3.5-5.1)
--- NOTE | 2022-09-10 08:33 | ECG_ITS ---
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 Measurements Intervals [place] Rate: 88 P: 0 AR: 0 QRS: -42 QRSD: 88 T: 28 QT: 363 QTc: 440 Interpretive Statements ATRIAL FIBRILLATION LEFT AXIS DEVIATION [QRS AXIS < -30] LOW QRS VOLTAGE IN PRECORDIAL LEADS [QRS DEFLECTION < 1.0 mV IN CHEST LEADS] PATTERN CONSISTENT WITH PULMONARY DISEASE Compared to ECG 09/10/2022 06:41:05 Left-axis deviation now present Indeterminate axis no longer present Electronically Signed On 09-10-2022 17:12:35 CDT by Jamison Linton M.D. [id number]
[2022-09-10 09:27] LABS: Troponin 5 2HR 15.38 ng/L (0-10)
[2022-09-10 09:33] LABS: Troponin 5 2HR Delta -1.62 ABS# (0-10)
[2022-09-10] MEDS: nitroglycerin 1 gm/inch oint Pkt 0.5 INCH TOPICAL ×2 (10:23→17:48)
--- NOTE | 2022-09-10 10:42 | PM.HP ---
Providers/Chief Complaint Admitting Physician: Obey March MD Primary Care Provider: Yassine Mason DO Chief Complaint: Chest Pain History of Present Illness Macarena Guardado is a 66 year old female presenting from home with complaints of chest discomfort. She relates yesterday, she was having some issues with palpitations. She recorded her heart rate anywhere from 70 to 120. This morning, she had some stabbing discomfort in her lower half of her chest, followed by squeezing and pressure. This responded to several nitroglycerin, but then returned around 3 AM. She eventually came to the hospital. She states this discomfort seems different than her palpitations or atrial fibrillation. She does take nitroglycerin for chest discomfort sometimes, perhaps once every 2 to 3 weeks, but the discomfort has never been quite the same as this. She does have a history of nonobstructive coronary disease, but her last angiogram was in 2014 demonstrating a 30% circumflex and 30% first diagonal LAD lesion. She reports she still has some discomfort currently, but the nitroglycerin ointment that was placed on her chest is helping. Emergency department she got some nitroglycerin ointment, and an aspirin Medications/Allergies Home Medications Medication Instructions Recorded Confirmed Last Taken Type naproxen sodium 220 mg capsule 220 mg PO BID PRN Pain 05/17/19 09/10/22 12/18/19 History (Aleve) prenat.vits,dylan,uwg-mjin-rrffg 1 tab PO DAILY 05/17/19 09/10/22 09/10/22 History blood sugar diagnostic (Accu-Chek #200 ea 08/10/19 09/10/22 12/18/19 Rx Radha Plus test strips) blood-glucose meter (Accu-Chek #1 ea 08/10/19 09/10/22 12/18/19 Rx Radha Plus Meter) albuterol sulfate 90 mcg/actuation 2 inh inhalation Q6H PRN shortness 09/16/20 09/10/22 Unknown Rx aerosol inhaler (ProAir HFA) of breath or wheezing #8.5 grams aspirin 81 mg tablet,delayed 81 mg PO DAILY #90 tabs 01/03/21 09/10/22 09/10/22 Rx release (Adult Aspirin Regimen) albuterol sulfate 2.5 mg/3 mL 2.5 mg (3 mL) inhalation Q4H PRN 02/01/21 09/10/22 Unknown Rx (0.083 %) solution for nebulization Shortness Of Breath #15 mL isosorbide mononitrate 30 mg 30 mg PO DAILY 02/06/21 09/10/22 09/10/22 History tablet,extended release 24 hr metoprolol tartrate 100 mg tablet 100 mg PO BID #180 tabs 02/07/21 09/10/22 09/10/22 Rx cyclobenzaprine 10 mg tablet 10 mg PO DAILY PRN muscle spasm 02/27/21 09/10/22 Unknown Rx #30 tabs fluticasone propionate 50 2 spray intranasal DAILY PRN 07/26/21 09/10/22 Unknown Rx mcg/actuation nasal allergy symptoms #15.8 mL spray,suspension (Allergy Relief (fluticasone)) cpap #1 ea 08/11/21 09/10/22 Unknown Rx rivaroxaban 20 mg tablet (Xarelto) 20 mg PO DAILY #30 tabs 09/21/21 09/10/22 09/10/22 Rx upadacitinib 30 mg tablet,extended 30 mg PO DAILY 11/14/21 09/10/22 09/10/22 History release 24 hr (Rinvoq) epinephrine 0.3 mg/0.3 mL 0.3 mg (0.3 mL) IM ONCE #2 ea 02/28/22 09/10/22 Unknown Rx injection, auto-injector nitroglycerin 0.4 mg sublingual 0.4 mg sublingual Q5M PRN chest 04/16/22 09/10/22 09/10/22 Rx tablet pain #25 tabs potassium chloride 10 mEq 10 meq PO TID #90 caps 07/09/22 09/10/22 09/10/22 Rx capsule,extended release metformin 1,000 mg tablet 1,000 mg PO BID #180 tabs 07/23/22 09/10/22 09/10/22 Rx tirzepatide 5 mg/0.5 mL 5 mg (0.5 mL) SUBCUT Q7D 30 days 08/08/22 09/10/22 09/08/22 Rx subcutaneous pen injector #2 mL (Javier) duloxetine 60 mg capsule,delayed 60 mg PO BID #60 caps 08/22/22 09/10/22 09/10/22 Rx release (Cymbalta) coenzyme Q10 50 mg tablet 50 mg PO DAILY 09/10/22 09/10/22 09/10/22 History diltiazem HCl 120 mg 120 mg PO DAILY 09/10/22 09/10/22 09/10/22 History capsule,extended release 24 hr furosemide 40 mg tablet 40 mg PO BID 09/10/22 09/10/22 09/10/22 History gabapentin 300 mg capsule 300 mg PO QPM 09/10/22 09/10/22 09/09/22 History glipizide 10 mg tablet 10 mg PO BID 09/10/22 09/10/22 09/10/22 History magnesium oxide 400 mg PO DAILY 09/10/22 09/10/22 09/10/22 History omeprazole 20 mg capsule,delayed 20 mg PO DAILY 09/10/22 09/10/22 09/10/22 History release pioglitazone 45 mg tablet 45 mg PO DAILY 09/10/22 09/10/22 09/10/22 History ropinirole 0.5 mg tablet 0.5 mg PO TID 09/10/22 09/10/22 09/10/22 History trazodone 50 mg tablet 50 - 100 mg PO BEDTIME PRN Sleep 09/10/22 09/10/22 Unknown History Allergies Allergy/AdvReac Type Severity Reaction Status Date / Time meperidine Allergy Unknown Unknown Verified 09/10/22 08:40 amobarbital Allergy Unknown Verified 09/10/22 08:40 bee venom protein (honey bee) Allergy ALGY-Anaphy Verified 09/10/22 08:40 laxis hydroxychloroquine Allergy Unknown Verified 09/10/22 08:40 [From Plaquenil] Penicillins Allergy Unknown Verified 09/10/22 08:40 sulfamethoxazole Allergy ALGY-Rash Verified 09/10/22 08:40 [From Bactrim] trimethoprim [From Bactrim] Allergy ALGY-Rash Verified 09/10/22 08:40 aspartame AdvReac Unknown ADR-Headach Verified 09/10/22 08:40 e PFSH Acute PFSH: Medical History (Updated 09/10/22 @ 12:37 by Obey March MD) Anemia Anxiety disorder Bilateral leg cramps CAD (coronary artery disease) Cardiac arrhythmia Chest pain CHF (congestive heart failure) CHF (congestive heart failure), NYHA class III Diabetes Diabetic polyneuropathy Diastolic dysfunction Enrolled in chronic care management GERD (gastroesophageal reflux disease) Hiatal hernia History of nonmelanoma skin cancer HTN (hypertension) Hx MRSA infection Hyperlipidemia Interstitial lung disease Morbid obesity Myalgia Panic disorder Post-traumatic stress disorder, chronic Pulmonary hypertension Restless leg syndrome Rheumatoid arthritis Shortness of breath Sleep apnea TIA (transient ischemic attack) Surgical History S/P appendectomy S/P knee surgery Multiple S/P tubal ligation Family History Mother , age 91 Heart disease Diabetes Cancer Breast, cervical, lung Father , Age 93 - CHF Heart disease Grandmother Diabetes Maternal Social History Smoking and tobacco status: never smoked Alcohol intake: current Alcohol intake frequency: holidays/special occasions only Substance/Drug Use: never Current occupation: retired Vitals/I&O/Wt Last Vital Signs Temp 98.7 F 09/10/22 06:32 Pulse 88 09/10/22 10:08 Resp 14 09/10/22 10:08 BP 128/80 09/10/22 10:08 Pulse Ox 96 09/10/22 10:08 O2 Del Method Room Air 09/10/22 10:08 O2 Flow Rate 4 09/10/22 06:32 Weight last 48 hrs Weight 154.221 kg Physical Exam Narrative: General exam is no distress Neck is supple no lymphadenopathy thyromegaly Cardiovascular regular rate and rhythm without murmur Lungs clear no wheezing or crackles Abdomen is soft with positive bowel sounds. No obvious organomegaly exam is deferred Extremities no cyanosis clubbing. Edema is noted bilaterally approximately 1+ which patient reports is chronic Skin no rash Neuro no obvious focal deficits Data 09/10/22 06:50 09/10/22 06:50 Other Labs: Chest x-ray poor quality, increased markings, likely cardiomegaly EKG demonstrates atrial fibrillation, rate controlled, normal axis, nonspecific ST-T wave changes Troponin 17, repeat 15 LFTs normal Albumin normal Calcium normal Last echocardiogram 2020 technically difficult, severe pulmonary hypertension noted, preserved EF A&P Assessment and plan (1) Chest pain: Patient presents with chest discomfort. It is somewhat atypical. However, it is responded to nitroglycerin Continue topical nitroglycerin paste Telemetry Serial troponins Check echocardiogram Cardiology consultation Discontinue oral anticoagulation, placed on Lovenox (2) Type 2 diabetes mellitus: Sliding scale insulin (3) Pulmonary hypertension: Continue oxygen 4 L per nasal cannula Plan Multiple other medical problems as outlined in past medical history Full code Lovenox will suffice for DVT prophylaxis Attestations Medical Necessity Statement*: Will need less than 2 midnight stay for evaluation and treatment of chest discomfort Diagnoses Chest pain R07.9 Type 2 diabetes mellitus E11.9 Pulmonary hypertension I27.20 Time Spent (min) 46
--- NOTE | 2022-09-10 12:02 | PC.NURSE ---
Patient arrived via stretcher from ED. Report was not received from ER prior to patient arrival. Patient has been oriented to room, Vital signs stable, and patient has been oriented to call phan use. No issues at this time and nurse will continue to monitor patient
--- NOTE | 2022-09-10 12:33 | USCV_ITS ---
Geo Macarena Age: 66 Gender: F : 1955 Exam Date: 09/10/2022 14:57 Ordering Phys: Obey March MD Technologist: Sung Lima [place] [facility] [place]ication: CHEST PAIN BP: 157 / 127 HR: 88 Rhythm: Sinus Technical Quality: Adequate MEASUREMENTS (Male / Female) Normal Values 2D ECHO LV Diastolic Diameter PLAX 3.1 cm 4.2 - 5.9 / 3.9 - 5.3 cm LV Systolic Diameter PLAX 2.8 cm IVS Diastolic Thickness 1.5 cm 0.6 - 1.0 / 0.6 - 0.9 cm IVS Systolic Thickness 1.7 cm LVPW Diastolic Thickness 1.5 cm 0.6 - 1.0 / 0.6 - 0.9 cm LVPW Systolic Thickness 1.8 cm LVOT Diameter 2.1 cm LV Ejection Fraction 2D Teich 1.5 % LV Ejection Fraction MOD 2C 59.8 % LV Ejection Fraction 2C AL 59.1 % LA Diameter 4.5 cm M-MODE Aortic Annulus Diameter 3.4 cm LA Ao Ratio MM 1.3 MV E Point Septal Separation 1.3 cm DOPPLER AV Peak Velocity 158.0 cm/s LVOT Peak Velocity 97.0 cm/s AV Area Cont Eq vti 2.3 cm squared AV Area Cont Eq pk 2.1 cm squared MV Area PHT 5.0 cm squared Mitral E to A Ratio 1.4 MV E' Velocity 81.5 cm/s Mitral E to MV E' Ratio 14.5 Mitral E to LV E' Lateral Ratio 13.6 Mitral E to LV E' Septal Ratio 15.7 TR Peak Velocity 310.0 cm/s TR Peak Gradient 38.4 mmHg TV Peak E Velocity 149.0 cm/s Right Atrial Pressure 3.0 mmHg Pulmonary Artery Systolic Pressu 41.4 mmHg RV Acceleration Time 0.2 s FINDINGS Left Ventricle Technically limited quality echocardiogram because of poor ultrasonic windows. LV systolic function is grossly normal. Regional wall motion abnormalities can not be accurately assessed. Right Ventricle Grossly normal Right Atrium Normal in size Left Atrium Normal in size Mitral Valve Severe mitral annular calcification. Mild mitral regurgitation. Aortic Valve Grossly normal Tricuspid Valve Mild tricuspid regurgitation. RVSP is 45-50mmHg. This is consistent with moderate pulmonary hypertension Pulmonic Valve Not well visualized Pericardium Normal Aorta Normal in size IVC Not well visualized CONCLUSIONS Technically limited quality echocardiogram because of poor ultrasonic windows. LV systolic function is grossly normal. Mild mitral regurgitation. Mild tricuspid regurgitation. Moderate pulmonary hypertension Accurate comparison with prior echocardiogram not possible because of poor visualization. Williams Diaz MD (Electronically Signed) Final Date: 11 Sep 2022 07:04 S
[2022-09-10 12:34] LABS: Glucose Point of Care 115 mg/dL (70-110)
[2022-09-10 13:06] LABS: Thyroid Stimulating Hormone 4.67 uIU/mL (0.27-4.20)
[2022-09-10 13:55] LABS: Troponin 5 6HR 15.76 ng/L (0-10)
[2022-09-10 14:08] LABS: Troponin 5 6HR Delta -1.24 ng/L (0-12)
[2022-09-10] MEDS: ropinirole 0.25 mg Tablet 0.5 MG PO ×2 (15:20→20:15)
[2022-09-10] MEDS: perflutren protein-a microsphr 0.22 mg/mL SDV 3 mL IV (15:56)
[2022-09-10 16:17] LABS: Glucose Point of Care 131 mg/dL (70-110)
--- NOTE | 2022-09-10 17:34 | PM.CONSULT ---
Providers/Reason For Consult Consulting Physician/Specialty*: Williams Diaz MD/ Cardiology Reason for Consult*: Worsening angina Requesting Physician: Dr Nelson Attending Physician: Obey March MD Primary Care Provider: Yassine Mason DO History of Present Illness History of Present Illness Macarena Guardado is a 66 year old female with past medical history of atrial fibrillation on Xarelto, diabetes, hypertension, non-obstructive CAD has presented with chest pain symptoms. According to patient last night she woke up at around 1 AM with severe substernal chest discomfort. She took with 3 nitros that improved the discomfort. She went back to sleep and was woken up again with similar pain at around 3 AM. This time again she was having significant chest discomfort with squeezing pressure on the chest. She came to the ER. In the ER she had another longer episode of chest discomfort. She is feeling weak. Has chronic shortness of breath secondary to severe pulmonary hypertension and is on 4 L oxygen. Troponins have not trended up significantly. EKG shows atrial fibrillation with heart rate of [address]-T wave changes. Review of Systems Const: Denies: fever(s), chills, fatigue, malaise or diaphoresis ENMT: Denies: throat pain, ear or mastoid pain, nasal discharge or nasal congestion Card: Reports: chest pain; Denies: palpitations or syncope Resp: Denies: dyspnea GI: Denies: abdominal pain, nausea or vomiting : Denies: flank pain, difficulty voiding, dysuria, urinary frequency or urinary urgency Skin/Breast: Denies: rash or pruritus Medications/Allergies Home Medications Medication Instructions Recorded Confirmed Last Taken Type naproxen sodium 220 mg capsule 220 mg PO BID PRN Pain 05/17/19 09/10/22 12/18/19 History (Aleve) prenat.vits,ydlan,gat-gkfr-pjenl 1 tab PO DAILY 05/17/19 09/10/22 09/10/22 History blood sugar diagnostic (Accu-Chek #200 ea 08/10/19 09/10/22 12/18/19 Rx Radha Plus test strips) blood-glucose meter (Accu-Chek #1 ea 08/10/19 09/10/22 12/18/19 Rx Radha Plus Meter) albuterol sulfate 90 mcg/actuation 2 inh inhalation Q6H PRN shortness 09/16/20 09/10/22 Unknown Rx aerosol inhaler (ProAir HFA) of breath or wheezing #8.5 grams aspirin 81 mg tablet,delayed 81 mg PO DAILY #90 tabs 01/03/21 09/10/22 09/10/22 Rx release (Adult Aspirin Regimen) albuterol sulfate 2.5 mg/3 mL 2.5 mg (3 mL) inhalation Q4H PRN 02/01/21 09/10/22 Unknown Rx (0.083 %) solution for nebulization Shortness Of Breath #15 mL isosorbide mononitrate 30 mg 30 mg PO DAILY 02/06/21 09/10/22 09/10/22 History tablet,extended release 24 hr metoprolol tartrate 100 mg tablet 100 mg PO BID #180 tabs 02/07/21 09/10/22 09/10/22 Rx cyclobenzaprine 10 mg tablet 10 mg PO DAILY PRN muscle spasm 02/27/21 09/10/22 Unknown Rx #30 tabs fluticasone propionate 50 2 spray intranasal DAILY PRN 07/26/21 09/10/22 Unknown Rx mcg/actuation nasal allergy symptoms #15.8 mL spray,suspension (Allergy Relief (fluticasone)) cpap #1 ea 08/11/21 09/10/22 Unknown Rx rivaroxaban 20 mg tablet (Xarelto) 20 mg PO DAILY #30 tabs 09/21/21 09/10/22 09/10/22 Rx upadacitinib 30 mg tablet,extended 30 mg PO DAILY 11/14/21 09/10/22 09/10/22 History release 24 hr (Rinvoq) epinephrine 0.3 mg/0.3 mL 0.3 mg (0.3 mL) IM ONCE #2 ea 02/28/22 09/10/22 Unknown Rx injection, auto-injector nitroglycerin 0.4 mg sublingual 0.4 mg sublingual Q5M PRN chest 04/16/22 09/10/22 09/10/22 Rx tablet pain #25 tabs potassium chloride 10 mEq 10 meq PO TID #90 caps 07/09/22 09/10/22 09/10/22 Rx capsule,extended release metformin 1,000 mg tablet 1,000 mg PO BID #180 tabs 03/09/10/22 09/10/22 Rx tirzepatide 5 mg/0.5 mL 5 mg (0.5 mL) SUBCUT Q7D 30 days 08/08/22 09/10/22 09/08/22 Rx subcutaneous pen injector #2 mL (Mounjaro) duloxetine 60 mg capsule,delayed 60 mg PO BID #60 caps 08/22/22 09/10/22 09/10/22 Rx release (Cymbalta) coenzyme Q10 50 mg tablet 50 mg PO DAILY 09/10/22 09/10/22 09/10/22 History diltiazem HCl 120 mg 120 mg PO DAILY 09/10/22 09/10/22 09/10/22 History capsule,extended release 24 hr furosemide 40 mg tablet 40 mg PO BID 09/10/22 09/10/22 09/10/22 History gabapentin 300 mg capsule 300 mg PO QPM 09/10/22 09/10/22 09/09/22 History glipizide 10 mg tablet 10 mg PO BID 09/10/22 09/10/22 09/10/22 History magnesium oxide 400 mg PO DAILY 09/10/22 09/10/22 09/10/22 History omeprazole 20 mg capsule,delayed 20 mg PO DAILY 09/10/22 09/10/22 09/10/22 History release pioglitazone 45 mg tablet 45 mg PO DAILY 09/10/22 09/10/22 09/10/22 History ropinirole 0.5 mg tablet 0.5 mg PO TID 09/10/22 09/10/22 09/10/22 History trazodone 50 mg tablet 50 - 100 mg PO BEDTIME PRN Sleep 09/10/22 09/10/22 Unknown History Allergies Allergy/AdvReac Type Severity Reaction Status Date / Time meperidine Allergy Unknown Unknown Verified 09/10/22 08:40 amobarbital Allergy Unknown Verified 09/10/22 08:40 bee venom protein (honey bee) Allergy ALGY-Anaphy Verified 09/10/22 08:40 laxis hydroxychloroquine Allergy Unknown Verified 09/10/22 08:40 [From Plaquenil] Penicillins Allergy Unknown Verified 09/10/22 08:40 sulfamethoxazole Allergy ALGY-Rash Verified 09/10/22 08:40 [From Bactrim] trimethoprim [From Bactrim] Allergy ALGY-Rash Verified 09/10/22 08:40 aspartame AdvReac Unknown ADR-Headach Verified 09/10/22 08:40 e Current Medications Generic Name Dose Route Start Last Admin Trade Name Adriana PRN Reason Stop Dose Admin Insulin Human Lispro 0 unit 09/10/22 12:39 09/10/22 17:00 Insulin Lispro 100 Unit/1 Ml SUBCUT Not Given WM&BEDTIME DAMARIS Protocol Nitroglycerin 0.5 inch 09/10/22 12:45 09/10/22 12:55 Nitroglycerin 1 Gm/Inch Oint Pkt TOPICAL Not Given Q6H DAMARIS Ropinirole HCl 0.5 mg 09/10/22 15:00 09/10/22 15:20 Ropinirole 0.25 Mg Tablet PO 0.5 mg TID DAMARIS Administration PFSH Acute PFSH: Medical History Anemia Anxiety disorder Bilateral leg cramps CAD (coronary artery disease) Cardiac arrhythmia Chest pain CHF (congestive heart failure) CHF (congestive heart failure), NYHA class III Diabetes Diabetic polyneuropathy Diastolic dysfunction Enrolled in chronic care management GERD (gastroesophageal reflux disease) Hiatal hernia History of nonmelanoma skin cancer HTN (hypertension) Hx MRSA infection Hyperlipidemia Interstitial lung disease Morbid obesity Myalgia Panic disorder Post-traumatic stress disorder, chronic Pulmonary hypertension Restless leg syndrome Rheumatoid arthritis Shortness of breath Sleep apnea TIA (transient ischemic attack) Surgical History S/P appendectomy S/P knee surgery Multiple S/P tubal ligation Family History Mother , age 91 Heart disease Diabetes Cancer Breast, cervical, lung Father , Age 93 - CHF Heart disease Grandmother Diabetes Maternal Social History Smoking and tobacco status: never smoked Alcohol intake: current Alcohol intake frequency: holidays/special occasions only Substance/Drug Use: never Current occupation: retired Vitals/I&O/Wt Last Vital Signs Temp 97.9 F 09/10/22 15:55 Pulse 92 09/10/22 15:55 Resp 19 H 09/10/22 15:55 BP 154/92 09/10/22 15:55 Pulse Ox 100 09/10/22 15:55 O2 Del Method Nasal Cannula 09/10/22 15:55 O2 Flow Rate 4 09/10/22 15:55 Weight last 48 hrs Weight 340 lb Weight 340 lb Physical Exam Narrative: GENERAL: Patient is alert, awake and oriented x3. [] NECK: No jugular vein distension. [] HEENT: No cyanosis. No icterus. No pallor. [] HEART: Regular S1 and S2. LUNGS: Clear to auscultate bilaterally. [] CENTRAL NERVOUS SYSTEM: Grossly nonfocal. [] EXTREMITIES: Lower extremities with 1+ edema bilaterally. Data 09/11/22 04:27 09/11/22 04:27 A&P Assessment and plan (1) Chest pain: (2) Type 2 diabetes mellitus: (3) Atrial fibrillation: (4) CHF (congestive heart failure): Qualifiers: Heart failure type: unspecified Heart failure chronicity: chronic Qualified Code(s): I50.9 - Heart failure, unspecified (5) Diabetes: Qualifiers: Diabetes mellitus type: type 2 Diabetes mellitus middle or intermediate school principal insulin use: without middle or intermediate school principal use Diabetes mellitus complication status: with circulatory complication Diabetes mellitus complication detail: with other circulatory complications Qualified Code(s): E11.59 - Type 2 diabetes mellitus with other circulatory complications (6) HTN (hypertension): (7) Hyperlipidemia: Qualifiers: Hyperlipidemia type: mixed hyperlipidemia Qualified Code(s): E78.2 - Mixed hyperlipidemia Plan Patient has multiple risk factors for CAD and has presented with multiple episodes of chest pain since last night. Given her risk factors and high probability of coronary artery disease, we will proceed with coronary angiogram with possible percutaneous coronary intervention. Risks and benefits of the procedure have been discussed. She understands the risks and benefits and wants to proceed. N.p.o. past midnight Echocardiogram ordered Vinod palafox. She is on Lovenox. She will receive aspirin. Thank you for involving us with care of this patient. We will continue to follow. Please call with questions. Consult Attestations Medical Necessity Statement: Care expected to cross 2 midnights. Coding Level of Care Code Acute Code for [employer] Diagnoses Chest pain R07.9 Type 2 diabetes mellitus E11.9 Atrial fibrillation I48.91 CHF (congestive heart failure) I50.9 Heart failure type: unspecified Heart failure chronicity: chronic Diabetes E11.59 Diabetes mellitus type: type 2 Diabetes mellitus assisted insulin use: without assisted use Diabetes mellitus complication status: with circulatory complication Diabetes mellitus complication detail: with other circulatory complications HTN (hypertension) I10 Hyperlipidemia E78.2 Hyperlipidemia type: mixed hyperlipidemia
[2022-09-10] MEDS: gabapentin 300 mg Capsule PO (17:48)
[2022-09-10] MEDS: FUROsemide 40 mg Tablet PO (17:48)
[2022-09-10] MEDS: metoprolol tartrate 50 mg Tablet 100 MG PO (17:48)
[2022-09-10] MEDS: duloxetine 60 mg Capsule PO (17:48)
[2022-09-10] MEDS: atorvastatin 40 mg Tablet PO (20:15)
[2022-09-10] MEDS: enoxaparin 150 mg/mL Syringe SUBCUT (20:16)
[2022-09-10 21:06] LABS: Glucose Point of Care 140 mg/dL (70-110)
[2022-09-11] VITALS (12 sets, daily range): BP systolic 124–151; BP diastolic 66–110; PULSE 78–102; RESP 14–22; TEMP 36.4–36.8; O2SAT 93–100
[2022-09-11] MEDS: nitroglycerin 1 gm/inch oint Pkt 0.5 INCH TOPICAL ×2 (00:12→06:06)
[2022-09-11 04:42] LABS: Basophils # 0.1 10^3/uL (0.0-0.1); Basophils % 0.7 %; Eosinophils # 0.2 10^3/uL (0.0-0.8); Eosinophils % 2.3 %; Hemoglobin 11.1 g/dL (11.5-15.3); Lymphocytes # 1.8 10^3/uL (0.8-4.8); Lymphocytes % 26.7 %; Mean Corpuscular HGB Conc 31.7 g/dL (30.0-36.0); Mean Corpuscular Hemoglobin 28.2 pg (28.0-34.0); Mean Corpuscular Volume 88.8 fl (81-99); Mean Platelet Volume 9.6 fL (7.4-10.4); Monocytes # 0.7 10^3/uL (0.2-0.9); Monocytes % 10.6 %; Neutrophils % 59.4 %; Nucleated Red Blood Cells % 0 %; Platelet Count 317 10^3/cmm (130-400); Red Blood Count 3.94 10^6/uL (4.1-5.3); Red Cell Distribution Width 14.7 % (12.1-15.1); White Blood Count 6.9 10^3/uL (4.0-10.0)
[2022-09-11 05:11] LABS: Alanine Aminotransferase 25 U/L (0-33); Albumin Level 3.5 g/dL (3.5-5.2); Alkaline Phosphatase 86 U/L (35-105); Anion Gap 14.9 (5-19); Aspartate Amino Transferase 25 U/L (0-32); Blood Urea Nitrogen 18 mg/dL (8-23); Calcium 8.9 mg/dL (8.5-10.5); Carbon Dioxide 24 mmol/L (22-29); Chloride 103 mmol/L (98-107); Globulin 2.9 g/dL (1.3-4.6); Glomerular Filtration Rate 62.3 mL/min (90-130); Glucose 153 mg/dL (65-115); Magnesium 1.8 mg/dL (1.7-2.3); Osmolality Calculated 291 mOsm/kg (285-295); Potassium 3.9 mmol/L (3.5-5.1); Sodium 138 mmol/L (136-145); Total Bilirubin 0.3 mg/dL (0.15-1.2); Total Protein 6.4 g/dL (6.6-8.7)
[2022-09-11] MEDS: sodium chloride 0.9% 1,000 ML 50 ML IV (06:02)
[2022-09-11 06:38] LABS: Glucose Point of Care 168 mg/dL (70-110)
--- NOTE | 2022-09-11 06:55 | P.HPUD_ITS ---
Surgery/Procedure H&P Update DATE OF PROCEDURE: September 11, 2022 DATE H&P PERFORMED: 09/10/22 H&P UPDATE INFORMATION: I have reviewed H&P completed within last 30 days, I have examined patient prior to procedure and No changes to prior documentation PREOP DIAGNOSIS: Worsening angina PRIMARY INDICATION FOR PROCEDURE: Worsening angina PLANNED PROCEDURE: Left heart cath with possible percutaneous coronary intervention PATIENT REASSESSED PRIOR TO SEDATION, WITH NO CHANGE NOTED: Yes PHYSICAL EXAM: alert, oriented x 3, clear to auscultation bilaterally and regular rate & rhythm AIRWAY EVAL/ANESTHESIA PLAN: normal airway, ASA IV, Local Anesthesia, Risks, benefits & alternatives of sedation and/or procedure discussed and Patient agrees to continue as planned
--- NOTE | 2022-09-11 06:57 | PM.PN ---
Subjective Subjective: Patient is stable. No chest pain this AM. Coronary angiogram shows moderate left circumflex artery stenosis and mild to moderate proximal LAD stenosis. LV systolic function is normal on LV gram. Vitals/I&O/Wt Last Vital Signs Temp 98.0 F 09/11/22 03:51 Pulse 91 09/11/22 06:00 Resp 16 09/11/22 03:51 BP 124/66 09/11/22 03:51 Pulse Ox 93 09/11/22 03:51 O2 Del Method Nasal Cannula 09/11/22 03:51 O2 Flow Rate 3 09/11/22 03:51 09/10/22 09/10/22 09/11/22 14:59 22:59 06:59 Intake Total 240 / 240 Balance 240 / 240 Weight last 48 hrs Weight 340 lb Weight 340 lb Physical Exam Narrative: GENERAL: Patient is alert, awake and oriented x3. [] NECK: No jugular vein distension. [] HEENT: No cyanosis. No icterus. No pallor. [] HEART: Regular S1 and S2. LUNGS: Clear to auscultate bilaterally. [] CENTRAL NERVOUS SYSTEM: Grossly nonfocal. [] EXTREMITIES: Lower extremities with 1+ edema bilaterally. Data 09/11/22 04:27 09/11/22 04:27 A&P Assessment and plan (1) Chest pain: (2) Type 2 diabetes mellitus: (3) Atrial fibrillation: (4) CHF (congestive heart failure): Qualifiers: Heart failure type: unspecified Heart failure chronicity: chronic Qualified Code(s): I50.9 - Heart failure, unspecified (5) Diabetes: Qualifiers: Diabetes mellitus type: type 2 Diabetes mellitus director long term care insulin use: without custodial use Diabetes mellitus complication status: with circulatory complication Diabetes mellitus complication detail: with other circulatory complications Qualified Code(s): E11.59 - Type 2 diabetes mellitus with other circulatory complications (6) HTN (hypertension): (7) Hyperlipidemia: Qualifiers: Hyperlipidemia type: mixed hyperlipidemia Qualified Code(s): E78.2 - Mixed hyperlipidemia Plan Coronary angiogram done. Above mentioned anatomy. Chest discomfort likely secondary to microvascular dysfunction. We will uptitrate imdur to 60 mg daily. Can resume Xarelto tonight Thank you for involving us with care of this patient. Patient is stable to be discharged from cardiology standpoint. Please call with questions. Attestations Medical Necessity Statement*: Care expected to cross 2 midnights. Coding Level of Care Code Acute Code for g Fwd Diagnoses Chest pain R07.9 Type 2 diabetes mellitus E11.9 Atrial fibrillation I48.91 CHF (congestive heart failure) I50.9 Heart failure type: unspecified Heart failure chronicity: chronic Diabetes E11.59 Diabetes mellitus type: type 2 Diabetes mellitus director long term care insulin use: without custodial use Diabetes mellitus complication status: with circulatory complication Diabetes mellitus complication detail: with other circulatory complications HTN (hypertension) I10 Hyperlipidemia E78.2 Hyperlipidemia type: mixed hyperlipidemia
[2022-09-11] MEDS: isosorbide mononitrate ER 60 mg Tablet PO (08:39)
[2022-09-11] MEDS: metoprolol tartrate 50 mg Tablet 100 MG PO ×2 (08:39→17:51)
[2022-09-11] MEDS: aspirin 81 mg EC Tablet PO (08:39)
[2022-09-11] MEDS: FUROsemide 40 mg Tablet PO (08:39)
[2022-09-11] MEDS: pantoprazole DR 40 mg Tablet PO (08:39)
[2022-09-11] MEDS: dilTIAZem ER (24HR) 120 mg Capsule PO (08:39)
[2022-09-11] MEDS: ropinirole 0.25 mg Tablet 0.5 MG PO ×3 (08:39→21:04)
[2022-09-11] MEDS: duloxetine 60 mg Capsule PO ×2 (08:40→17:50)
[2022-09-11] MEDS: magnesium oxide 400 mg tablet PO (08:40)
--- NOTE | 2022-09-11 10:00 | XACV_ITS ---
Exam Room: [facility] Ht: 163 cm Wt: 154 kg BSA: 2.74 m2 Gender: Female : 1955 Any Known Allergies: Sulfa Exam Priority: Routine Procedure(s): Procedure Description: Diagnostic procedure Procedure Description: Left Heart Catheterization Procedure Description: Left ventriculography Procedure Description: Coronary Angiography Diagnostic Cath Status: Urgent Diagnostic Findings * Left Anterior Descending has mild 20-30% proximal artery disease. * Right Coronary Artery has no significant disease. * Left Main has no disease. * Mid Circumflex: mild 40% stenosis, ZEINA: 3 flow. * Coronary angiography shows right dominance. Conclusions 1. Non-obstructive coronary artery disease. 2. Normal left ventricular systolic function. Ejection fraction of 55%. Recommendations * Aggressive risk factor modification. * Outpatient cardiology follow up in 4 weeks. Interventional RX Recommendation: medical therapy and/or counseling Diagnostic RX Recommendation: medical therapy and/or counseling Anticoagulation: Heparin Ventriculography Ejection Fraction: 55.0 % Pressures Phase:Rest AO : 140 / 93 ( 107 ) @ 8:11:00 AM 114 / 96 ( 106 ) @ 8:11:00 AM 162 / 106 ( 132 ) @ 8:22:00 AM 170 / 109 ( 137 ) @ 8:22:00 AM LV : 180 / 27 / 37 @ 8:20:00 AM 181 / 13 / 39 @ 8:21:00 AM 190 / 35 / 54 @ 8:21:00 AM 177 / 15 / 41 @ 8:22:00 AM Valves Phase:DefaultPhase AV : 13.0 @ 7:27:40 AM 13.0 @ 7:27:40 AM AV Mean Gradient: 15.0 @ 7:27:40 AM 15.0 @ 7:27:40 AM Clinical Evaluation EBL: 5mL-10mL Procedural Details Pre-Procedure Time Out. Identified patient by full name and date of as verbalized by the patient/guarantor. Does the consent match the physician's order: Yes. Accurate & Complete Informed Consent: Yes. Inpatient/Outpatient History & Physical on Chart: Yes. If H&P is completed, is and addenduem needed: No; If yes, is the addendum complete: N/A. Visualize and Verify Site with Patient/Guarantor: N/A. Relevant Radiology Images available: Yes. Pre-op teaching completed and patient verbalized understanding. The risks, benefits, and alternatives of sedation and/or procedure were discussed by physician. The patient agrees to continue. Procedure started. [facility] Clinical Fraility Score: 4: Vulnerable. Negative Turner Indications: Worsening Angina. Chest Pain Symptom Assessment: Typical Angina Symptoms. Current Diagnosis : Chest Pain. Correct patient, site and procedure confirmed by cath team. Current diagnosis: Chest Pain. PERRLA. Strong, equal hand airport planner bilaterally. Lungs clear x 5 lobes. IV Site on Arrival: 20 gauge in the left anticubital. IV Fluids: 0.9% NaCl at KVO. 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 Pre Procedural Pulses: right radial was 3+. Pre Procedural Pulses: bilateral dorsalis pedis was 2+. Pre Procedural Pulses: bilateral posterior tibial was 1+. Oxygen started at 2liters/min via nasal canula. right groin was prepped with chloroprep then draped in the usual sterile fashion. right radial was prepped with chloroprep then draped in the usual sterile fashion. Physician notified. Baseline sample Acquired. HR: 107 BPM. Physician arrived. Physician scrubbed in. Immediate Pre-Procedure Time Out. Correct Patient: Yes; Correct Procedure: Yes; Correct Site: Yes; Correct Patient Position: Yes; Correct Supplies: Yes; Dried Flammable Prep: Yes; Blood Products Available: N/A;. Lidocaine 1% infiltrated to the right radial. Arterial access obtained. A 5 ukrainian TIG catheter in over wire. Multiple views taken of left coronary artery. Catheter redirected to the RCA. Catheter removed over the exchange wire. A 5 ukrainian JR4 catheter in over wire. Multiple views taken of right coronary artery. Catheter removed over the exchange wire. A 5 ukrainian Angled Pig catheter in over wire. EDP Sample taken: LV 180/27,37; HR: 77 BPM; SpO2: 97%. EDP Sample taken: LV 181/13,39; HR: 95 BPM; SpO2: 94%. LV gram performed in BLANCAS @ 10 mL/second for a total of 30 mL. EDP Sample taken: LV 190/35,54; HR: 64 BPM; SpO2: 93%. Pullback taken: LV 177/15,41; AO 162/106(132); Mean: 15mmHg, Peak to Peak: 13mmHg, SEP: 7sec/min; HR: 74 BPM; SpO2: 94%. Catheter removed over the exchange wire. Physician review of cine films. A TR Band was successful obtaining hemostatsis at the Right Radial artery insertion site. Post Procedure: Pulses reassessed and unchanged. PERRLA. Strong, equal hand airport planner bilaterally. No VTE prophylaxis required. Medication's Wasted: Lidocaine 1% = 1 mL. Medication's Wasted: Heparin = 1000 units. Medication's Wasted: Other = Fentanyl 50 mcg Versed 1 mg. Total IV fluids: 30 mL. Post-op diagnosis: Non-obstructive CAD. Complications: None. Estimated blood loss: 5mL-10mL. Responsiveness - Normal response to verbal stimuli; alert and oriented, PERRLA. Airway - Unaffected, no intervention required; spontaneous ventilation. Circulation: W/N/L, pulses unchanged. Nausea/Vomiting: No. Vital chart was stopped. Procedure completed. Patient transferred by bed to 1st floor. Access Site Site: Right Radial artery Sheath Size: 6 Fr Hemostasis Method: TR Band Hemostasis Success: Successful Procedure Medications Start: 7:02 AM Stop: 7:02 AM Medication: Versed Amount: 1 mg Route: I.V. Start: 7:02 AM Stop: 7:02 AM Medication: Fentanyl Amount: 50 mcg Route: I.V. Start: 7:08 AM Stop: 7:08 AM Medication: Benadryl Amount: 25 mg Route: I.V. Start: 7:09 AM Stop: 7:09 AM Medication: Nitrogylcerin Amount: 200 mcg Route: I.A. Start: 7:10 AM Stop: 7:10 AM Medication: Heparin Amount: 5000 units Route: I.V. I, the attending physician, have reviewed and verified all procedure medications. Yes, all medications given per verbal order History/Risk Factors Hypertension: Yes Dyslipidemia: Yes Peripheral Arterial Disease (PAD): No Myocardial Infarction (UT): No Obesity: Yes Renal Disease: No Prior Interventions PCI: No CABG: No Valve Surgery: No Report Signatures Finalized by Williams Diaz MD on 09/22/2022 07:37 PM
--- NOTE | 2022-09-11 11:02 | ECG_ITS ---
[facility] Test Date: 2022-09-11 Pat Name: Macarena Guardado Department: Room: 108 Gender: Female Data Officer: : 1955 Requested By: Obey Tony Order Number: [id number] Nimisha MD: Williams Diaz M.D. Measurements Intervals [place] Rate: 83 P: 0 [place]: 0 QRS: -30 QRSD: 79 T: 43 QT: 350 QTc: 412 Interpretive Statements ATRIAL FIBRILLATION BORDERLINE LEFT AXIS DEVIATION [QRS AXIS < -20] LOW QRS VOLTAGE IN PRECORDIAL LEADS [QRS DEFLECTION < 1.0 mV IN CHEST LEADS] PATTERN CONSISTENT WITH PULMONARY DISEASE Compared to ECG 09/10/2022 09:33:00 No significant changes Electronically Signed On 09-11-2022 11:54:17 CDT by Williams Diaz M.D. [id number]
[2022-09-11] MEDS: nitroglycerin 0.4 mg sublingual Tablet SUBLINGUAL ×2 (11:35→11:55)
[2022-09-11 11:40] LABS: Glucose Point of Care 147 mg/dL (70-110)
--- NOTE | 2022-09-11 12:30 | PM.PN ---
Subjective Subjective: Macarena is doing well this morning when I saw her directly after her angiogram. This demonstrated some atherosclerotic disease, but nothing flow-limiting. I was called to see her again secondary to chest discomfort. She reported this was substernal and nonradiating. Vital signs were reviewed and blood pressure somewhat high. An EKG was performed which showed nothing acute. Sublingual nitroglycerin was given which improved pain. I have visited with cardiology briefly, and we will give her a dose of IV Lasix and start Ranexa tonight. Imdur had already been increased this morning. Medications: Reviewed: Yes Vitals/I&O/Wt Last Vital Signs Temp 98.0 F 09/11/22 03:51 Pulse 94 09/11/22 10:08 Resp 22 H 09/11/22 08:42 BP 137/110 09/11/22 08:42 Pulse Ox 99 09/11/22 10:08 O2 Del Method Nasal Cannula 09/11/22 10:08 O2 Flow Rate 4 09/11/22 10:08 09/10/22 09/11/22 09/11/22 22:59 06:59 14:59 Intake Total 240 / 240 354 / 354 Balance 240 / 240 354 / 354 Weight last 48 hrs Weight 154.221 kg Weight 154.221 kg Physical Exam Narrative: General exam is no distress Neck is supple no lymphadenopathy thyromegaly Cardiovascular regular rate and rhythm without murmur Lungs clear no wheezing or crackles Abdomen is soft with positive bowel sounds. No obvious organomegaly Extremities no cyanosis clubbing. Edema unchanged. Right wrist without significant hematoma Data 09/11/22 04:27 09/11/22 04:27 A&P Assessment and plan (1) Chest pain: Patient presents with chest discomfort. It is somewhat atypical. However, it is responded to nitroglycerin Angiogram today demonstrated no flow-limiting disease Imdur was increased Patient had recurrent pain, sublingual nitroglycerin was given. Lasix 40 mg IV now, hold p.o. dose later this afternoon Start Ranexa tonight 500 mg twice daily Echocardiogram reviewed. EF normal, poor quality Cardiology consultation appreciated Resume her anticoagulation CBC, BMP tomorrow (2) Type 2 diabetes mellitus: Sliding scale insulin (3) Pulmonary hypertension: Continue oxygen 4 L per nasal cannula Plan Multiple other medical problems as outlined in past medical history Full code Lovenox will suffice for DVT prophylaxis Attestations Medical Necessity Statement*: Needs continued hospitalization secondary to recurrent chest discomfort following angiogram. Other Coding Information Shared care Diagnoses Chest pain R07.9 Type 2 diabetes mellitus E11.9 Pulmonary hypertension I27.20 Time Spent (min) 47
[2022-09-11] MEDS: insulin lispro 100 unit/1 mL SUBCUT (12:57)
[2022-09-11] MEDS: FUROsemide 10 mg/mL SDV 4mL 40 MG IVP (12:57)
[2022-09-11 17:17] LABS: Glucose Point of Care 137 mg/dL (70-110)
[2022-09-11] MEDS: ranolazine (12HR) 500 mg Tablet PO (17:50)
[2022-09-11] MEDS: gabapentin 300 mg Capsule PO (17:51)
[2022-09-11 20:31] LABS: Glucose Point of Care 135 mg/dL (70-110)
[2022-09-11] MEDS: atorvastatin 40 mg Tablet PO (21:03)
[2022-09-11] MEDS: rivaroxaban 10 mg Tablet 20 MG PO (21:04)
[2022-09-12 03:49] LABS: Bilirubin Urine Neg (Negative); Blood Urine 2+ (Negative); Glucose Urine UA Norm (Normal); Ketones Urine Negative (Negative); Leukocyte Esterase Urine 2+ (Negative); Nitrate Urine Positive (Negative); Protein Urine Neg (Negative); Urine Appearance Cloudy (CLEAR); Urine Color Yellow (Yellow); Urobilinogen Urine Neg (Negative); pH Urine 5 (5-7)
[2022-09-12 03:50] LABS: Add Urine Culture? Yes; Bacteria Urine 3+ /hpf; Mucus Urine 1+ /hpf; Squamous Epithelial Cell Urine 0-4 /hpf (0-5); WBC Urine 25-40 /hpf (0-5)
[2022-09-12 03:51] VITALS: BP 148/78; PULSE 90; RESP 14; TEMP 36.7; O2SAT 99
[2022-09-12 05:21] LABS: Basophils % 0.5 %; Eosinophils # 0.1 10^3/uL (0.0-0.8); Eosinophils % 2.1 %; Hematocrit 35.9 % (37.0-47.0); Hemoglobin 11.5 g/dL (11.5-15.3); Lymphocytes # 1.2 10^3/uL (0.8-4.8); Lymphocytes % 21.1 %; Mean Corpuscular Hemoglobin 29.3 pg (28.0-34.0); Mean Corpuscular Volume 91.3 fl (81-99); Monocytes # 0.7 10^3/uL (0.2-0.9); Monocytes % 11.5 %; Neutrophils # 3.77 10^3/uL (1.8-7.7); Neutrophils % 64.5 %; Nucleated Red Blood Cells % 0 %; Platelet Count 271 10^3/cmm (130-400); Red Blood Count 3.93 10^6/uL (4.1-5.3); Red Cell Distribution Width 14.7 % (12.1-15.1); White Blood Count 5.8 10^3/uL (4.0-10.0)
[2022-09-12 05:42] LABS: Blood Urea Nitrogen 12 mg/dL (8-23); Calcium 9.2 mg/dL (8.5-10.5); Carbon Dioxide 25 mmol/L (22-29); Chloride 103 mmol/L (98-107); Creatinine Clr Calc Pharmacy 100.4152; Glomerular Filtration Rate 71.3 mL/min (90-130); Glucose 143 mg/dL (65-115); Magnesium 1.8 mg/dL (1.7-2.3); Osmolality Calculated 292 mOsm/kg (285-295); Sodium 140 mmol/L (136-145)
[2022-09-12 05:44] VITALS: PULSE 106
[2022-09-12 05:47] LABS: Anion Gap 16.1 (5-19); Potassium 4.1 mmol/L (3.5-5.1)
[2022-09-12 06:31] LABS: Glucose Point of Care 163 mg/dL (70-110)
[2022-09-12] MEDS: FUROsemide 40 mg Tablet PO (06:44)
--- NOTE | 2022-09-12 07:22 | PM.PN ---
Subjective Subjective: Patient is overall doing well. Denies chest pain. Vitals/I&O/Wt Last Vital Signs Temp 98.0 F 09/12/22 03:51 Pulse 106 H 09/12/22 05:44 Resp 14 09/12/22 03:51 BP 148/78 09/12/22 03:51 Pulse Ox 99 09/12/22 03:51 O2 Del Method Nasal Cannula 09/12/22 03:51 O2 Flow Rate 4 09/12/22 03:51 09/11/22 09/12/22 09/12/22 22:59 06:59 14:59 Intake Total 1760 / 2114 Output Total 200 / 300 150 / 450 Balance 1560 / 1814 -150 / 1664 Weight last 48 hrs Weight 340 lb Physical Exam Narrative: GENERAL: Patient is alert, awake and oriented x3. [] NECK: No jugular vein distension. [] HEENT: No cyanosis. No icterus. No pallor. [] HEART: Regular S1 and S2. LUNGS: Clear to auscultate bilaterally. [] CENTRAL NERVOUS SYSTEM: Grossly nonfocal. [] EXTREMITIES: Lower extremities with 1+ edema bilaterally. 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 No chest pain. Uptitrate Imdur to 60 mg daily. Continue Xarelto. Thank you for involving us with care of this patient. Patient is stable to be discharged from cardiology standpoint. Please call with questions. Attestations Medical Necessity Statement*: Care expected to cross 2 midnights. Coding Level of Care Code Acute Code for Chg Fwd Diagnoses Chest pain R07.9 Type 2 diabetes mellitus E11.9 Atrial fibrillation I48.91 CHF (congestive heart failure) I50.9 Heart failure type: unspecified Heart failure chronicity: chronic Diabetes E11.59 Diabetes mellitus type: type 2 Diabetes mellitus mcc insulin use: without terminal gauger supervisor use Diabetes mellitus complication status: with circulatory complication Diabetes mellitus complication detail: with other circulatory complications HTN (hypertension) I10 Hyperlipidemia E78.2 Hyperlipidemia type: mixed hyperlipidemia
[2022-09-12 07:30] VITALS: PULSE 100; O2SAT 98
[2022-09-12 08:00] VITALS: BP 110/76; PULSE 94; RESP 22; O2SAT 100
[2022-09-12] MEDS: cefdinir 300 MG CAPSULE PO (08:12)
[2022-09-12] MEDS: magnesium oxide 400 mg tablet PO (08:12)
[2022-09-12] MEDS: dilTIAZem ER (24HR) 120 mg Capsule PO (08:13)
[2022-09-12] MEDS: duloxetine 60 mg Capsule PO (08:13)
[2022-09-12] MEDS: metoprolol tartrate 50 mg Tablet 100 MG PO (08:13)
[2022-09-12] MEDS: pantoprazole DR 40 mg Tablet PO (08:13)
[2022-09-12] MEDS: ropinirole 0.25 mg Tablet 0.5 MG PO (08:13)
[2022-09-12] MEDS: insulin lispro 100 unit/1 mL SUBCUT ×2 (08:13→12:23)
[2022-09-12] MEDS: ranolazine (12HR) 500 mg Tablet PO (08:13)
[2022-09-12] MEDS: aspirin 81 mg EC Tablet PO (08:14)
[2022-09-12] MEDS: isosorbide mononitrate ER 60 mg Tablet PO (08:14)
--- NOTE | 2022-09-12 09:43 | P.DS_ITS ---
Discharge Providers Date of Admission: 09/10/22 12:39 Date of Discharge: September 12, 2022 Attending Provider at Admission: Sandra March MD Attending Provider at Discharge: Obey March MD Primary Care Provider: Yassine Mason DO Diagnoses at Discharge Discharge Diagnosis (1) Chest pain: Status: Acute (2) Type 2 diabetes mellitus: Status: Acute (3) Pulmonary hypertension: Status: Acute Reason for Visit Reason for Visit: Chest Pain Hospital Course Hospital Course Patient presented to the hospital with complaints of chest discomfort. Troponin was elevated but did not have a significant delta. She was placed in the hospital and serial troponins were done. Echocardiogram was done which demonstrated preserved EF, persistent pulmonary hypertension unchanged from previous echoes. Cardiology was consulted and believed angiogram was needed. This was performed on the , and there was no evidence of flow-limiting lesions. Atherosclerotic disease was noted. Recommendations were made to increase Imdur. Patient had some recurrent chest discomfort following angiogram. Further adjustments include a dose of IV Lasix, and initiation of Ranexa. The following day she reported no chest discomfort and was ready for discharge. This was arranged. She will finish up 4 more days of antibiotic for UTI. She will follow-up in cardiology clinic and her primary care provider. Patient was given an opportunity to ask questions, and agreed with the plan. Physical Exam Narrative: General exam no distress Neck is supple no lymphadenopathy thyromegaly Cardiovascular regular rate and rhythm without murmur Lungs clear Abdomen is soft, obese, nontender Extremities trace edema bilaterally Discharge Data Studies Completed and Pending Completed Studies During Hospitalization Category Date Time Status XR chest 1V portable [id number] Stat Exams 09/10/22 06:33 Completed CV. echo wo/w contrast [id number] Routine Ultrasound 09/10/22 12:33 Completed Pending at discharge Category Date Time Status GOVERNMENT PROGRAM MANAGER request for service Routine Exams 09/11/22 10:00 Taken Urine Culture Routine Lab 09/12/22 03:30 Received Radiology Impressions Chest X-Ray 09/10/22 06:33 IMPRESSION: Nonspecific imaging findings, which can be seen with mild pulmonary congestion or pneumonia. Clinical correlation is recommended. Laboratory Results WBC 5.8 10^3/uL (4.0-10.0) 09/12/22 05:04 RBC 3.93 10^6/uL (4.1-5.3) L 09/12/22 05:04 Hgb 11.5 g/dL (11.5-15.3) 09/12/22 05:04 Hct 35.9 % (37.0-47.0) L 09/12/22 05:04 MCV 91.3 fl (81-99) 09/12/22 05:04 MCH 29.3 pg (28.0-34.0) 09/12/22 05:04 MCHC 32.0 g/dL (30.0-36.0) 09/12/22 05:04 RDW 14.7 % (12.1-15.1) 09/12/22 05:04 Plt Count 271 10^3/cmm (130-400) 09/12/22 05:04 MPV 10.0 fL (7.4-10.4) 09/12/22 05:04 Neut % (Auto) 64.5 % 09/12/22 05:04 Lymph % (Auto) 21.1 % 09/12/22 05:04 [place] % (Auto) 11.5 % 09/12/22 05:04 Eos % (Auto) 2.1 % 09/12/22 05:04 Baso % (Auto) 0.5 % 09/12/22 05:04 Neut # (Auto) 3.77 10^3/uL (1.8-7.7) 09/12/22 05:04 Lymph # (Auto) 1.2 10^3/uL (0.8-4.8) 09/12/22 05:04 [place] # (Auto) 0.7 10^3/uL (0.2-0.9) 09/12/22 05:04 Eos # (Auto) 0.1 10^3/uL (0.0-0.8) 09/12/22 05:04 Baso # (Auto) 0.0 10^3/uL (0.0-0.1) 09/12/22 05:04 Nucleated RBC % (auto) 0 % 09/12/22 05:04 Nucleated RBCs # 0.0 /100WBC 09/12/22 05:04 Sodium 140 mmol/L (136-145) 09/12/22 05:04 Potassium 4.1 mmol/L (3.5-5.1) 09/12/22 05:04 Chloride 103 mmol/L (98-107) 09/12/22 05:04 Carbon Dioxide 25 mmol/L (22-29) 09/12/22 05:04 Anion Gap 16.1 (5-19) 09/12/22 05:04 BUN 12 mg/dL (8-23) 09/12/22 05:04 Creatinine 0.8 mg/dL (0.5-0.9) 09/12/22 05:04 GFR Calculation 71.3 mL/min (90-130) L 09/12/22 05:04 Glucose 143 mg/dL (65-115) H 09/12/22 05:04 POC Glucose 163 mg/dL (70-110) H 09/12/22 06:24 Calculated Osmolality 292 mOsm/kg (285-295) 09/12/22 05:04 Calcium 9.2 mg/dL (8.5-10.5) 09/12/22 05:04 Magnesium 1.8 mg/dL (1.7-2.3) 09/12/22 05:04 Total Bilirubin 0.3 mg/dL (0.15-1.2) 09/11/22 04:27 AST 25 U/L (0-32) 09/11/22 04:27 ALT 25 U/L (0-33) 09/11/22 04:27 Alkaline Phosphatase 86 U/L (35-105) 09/11/22 04:27 Troponin T Baseline 17 ng/L (0-10) H 09/10/22 06:50 Troponin T 120 Minute 15.38 ng/L (0-10) H 09/10/22 08:55 Delta Troponin T -1.62 ABS# (0-10) L 09/10/22 08:55 Troponin T Hi Sens 6Hr 15.76 ng/L (0-10) H 09/10/22 13:07 Troponin T Hi Sens 6Hr Delta -1.24 ng/L (0-12) L 09/10/22 13:07 Total Protein 6.4 g/dL (6.6-8.7) L 09/11/22 04:27 Albumin 3.5 g/dL (3.5-5.2) 09/11/22 04:27 Globulin 2.9 g/dL (1.3-4.6) 09/11/22 04:27 TSH 4.67 uIU/mL (0.27-4.20) H 09/10/22 06:50 Urine Color Yellow (Yellow) 09/12/22 03:30 Urine Appearance Cloudy (CLEAR) A 09/12/22 03:30 Urine pH 5 (5-7) 09/12/22 03:30 Ur Specific [place] 1.020 (1.005-1.030) 09/12/22 03:30 Urine Protein Neg (Negative) 09/12/22 03:30 Urine Glucose (UA) Norm (Normal) 09/12/22 03:30 Urine Ketones Negative (Negative) 09/12/22 03:30 Urine Blood 2+ (Negative) H 09/12/22 03:30 Urine Nitrate Positive (Negative) H 09/12/22 03:30 Urine Bilirubin Neg (Negative) 09/12/22 03:30 Urine Urobilinogen Neg mg/dL (Negative) 09/12/22 03:30 Ur Leukocyte Esterase 2+ (Negative) H 09/12/22 03:30 Urine RBC 5-10 /hpf (0-2) H 09/12/22 03:30 Urine WBC 25-40 /hpf (0-5) H 09/12/22 03:30 Ur Squamous Epith Cells 0-4 /hpf (0-5) H 09/12/22 03:30 Amorphous Sediment Not Reportable 09/12/22 03:30 Urine Bacteria 3+ /hpf (NONE) H 09/12/22 03:30 Urine Mucus 1+ /hpf 09/12/22 03:30 Vitals Last Vital Signs Temp 98.0 F 09/12/22 03:51 Pulse 94 09/12/22 08:00 Resp 22 H 09/12/22 08:00 BP 110/76 09/12/22 08:00 Pulse Ox 100 09/12/22 08:00 O2 Del Method Nasal Cannula 09/12/22 07:30 O2 Flow Rate 4 09/12/22 07:30 Discharge Plan Discharge Condition: Stable Prescriptions: New isosorbide mononitrate 60 mg Tablet Extended Release 24 Hr 60 mg PO DAILY Qty: 30 0RF cefdinir 300 mg Capsule 300 mg PO BID Qty: 8 0RF atorvastatin 40 mg Tablet 40 mg PO BEDTIME Qty: 30 0RF ranolazine 500 mg Tablet Extended Release 12 Hr 500 mg PO BID Qty: 60 0RF Continued (DME) blood-glucose meter [Accu-Chek Radha Plus Meter] Misc See Rx Instructions .ROUTE .MEDSUPPLY Qty: 1 0RF Rx Instructions: As directed (DME) Accu-Chek Radha Plus test strp Strip See Rx Instructions .ROUTE .MEDSUPPLY Qty: 200 3RF Rx Instructions: As directed twice a day cyclobenzaprine 10 mg tablet 10 mg PO DAILY PRN (Reason: muscle spasm) Qty: 30 0RF prenat.vits,dylan,[id number] Tablet 1 tab PO DAILY aspirin [Adult Aspirin Regimen] 81 mg tablet,delayed release (DR/EC) 81 mg PO DAILY Qty: 90 0RF albuterol sulfate 2.5 mg /3 mL (0.083 %) solution for nebulization 2.5 mg INHALATION Q4H PRN (Reason: Shortness Of Breath) Qty: 15 11RF fluticasone propionate [Allergy Relief (fluticasone)] 50 mcg/actuation spray,suspension 2 spray intranasal DAILY PRN (Reason: allergy symptoms) Qty: 15.8 11RF Rx Instructions: administer into each nostril Rinvoq 30 mg tablet extended release 24 hr 30 mg PO DAILY Mounjaro 5 mg/0.5 mL pen injector 5 mg SUBCUT Q7D 30 Days Qty: 2 0RF Rx Instructions: ON SATURDAY albuterol sulfate [ProAir HFA] 90 mcg/actuation HFA aerosol inhaler 2 inh inhalation Q6H PRN (Reason: shortness of breath or wheezing) Qty: 8.5 5RF metoprolol tartrate 100 mg tablet 100 mg PO BID Qty: 180 3RF (DME) cpap See Rx Instructions .Route .MEDSUPPLY Qty: 1 0RF Rx Instructions: As directed Xarelto 20 mg tablet 20 mg PO DAILY Qty: 30 0RF Rx Instructions: Must be seen by Dr Bray for further refills. Last 4 appts were cancelled epinephrine 0.3 mg/0.3 mL auto-injector 0.3 mg IM ONCE Qty: 2 4RF nitroglycerin 0.4 mg tablet, sublingual 0.4 mg SUBLINGUAL Q5M PRN (Reason: chest pain) Qty: 25 2RF Rx Instructions: Call ambulance if pain is not resolved with 2. potassium chloride 10 mEq capsule, extended release 10 meq PO TID Qty: 90 3RF Rx Instructions: MUST have follow-up for further refills metformin 1,000 mg tablet 1,000 mg PO BID Qty: 180 3RF duloxetine [Cymbalta] 60 mg capsule,delayed release(DR/EC) 60 mg PO BID Qty: 60 11RF coenzyme Q10 50 mg Tablet 50 mg PO DAILY furosemide 40 mg tablet 40 mg PO BID trazodone 50 mg tablet 50 - 100 mg PO BEDTIME PRN (Reason: Sleep) ropinirole 0.5 mg tablet 0.5 mg PO TID gabapentin 300 mg capsule 300 mg PO QPM omeprazole 20 mg capsule,delayed release(DR/EC) 20 mg PO DAILY magnesium oxide 400 mg magnesium capsule 400 mg PO DAILY glipizide 10 mg tablet 10 mg PO BID pioglitazone 45 mg tablet 45 mg PO DAILY diltiazem HCl 120 mg capsule,extended release 24hr 120 mg PO DAILY Discontinued naproxen sodium [Aleve] 220 mg capsule 220 mg PO BID PRN (Reason: Pain) isosorbide mononitrate 30 mg tablet extended release 24 hr 30 mg PO DAILY Hold Instructions: Doctor's Order Discharge Orders: Discharge Order (Routine); Ordered 09/12/22 Ordered By: Obey March Referrals: Yassine Mason DO [Primary Care Provider] - 4-7 days Anne Silva FNP [Nurse Practitioner] - 09/19/22 10:15 am (Please follow-up Anne Silva on September 19 at 10:15A.M. If you have any questions or need to reschedule. Please call ) Discharge Diet: Cardiac and Diabetic Discharge Activity: Increase activity as tolerated Patient Instructions: Opioid Safety Activity Restrictions/Additional Instructions: Do not take your metformin today. May restart tomorrow Follow-up with cardiology, primary care provider Take all medicine as prescribed Note that you have a UTI, short course of antibiotics. Call if any diarrhea occurs that persists Patient's Health Concerns: Chest pain Assessment: Angiogram performed, no flow-limiting lesions Plan of Treatment: Medication adjusted Goals: No recurrent pain Discharge Attestations Time Spent in Discharge Care*: greater than 30 min Quality Metrics Clinical Quality Measures [ No reported AMI, CVA or VTE this stay] Coding Level of Care Code 95769 Diagnoses Chest pain R07.9 Type 2 diabetes mellitus E11.9 Pulmonary hypertension I27.20 Time Spent (min) 35
[2022-09-12 11:24] LABS: Glucose Point of Care 202 mg/dL (70-110)
--- NOTE | 2022-09-12 12:05 | PC.NURSE ---
Pt transport will be here in few minutes. her friend will bring her the portable oxygen. she will eat her lunch. discharge packet provided to pt.
[2022-09-12 12:28] VITALS: BP 128/99; PULSE 89; O2SAT 94
== END 2022-09-12 12:31 | disposition home or self-care (01) ==
LOC: ER 10:14 → CSU 12:57
PROVIDERS: Internal Medicine; Admitting Provider Family Medicine; Emergency Provider Family Medicine; PCP Family Medicine; Visit Provider Internal Medicine
DX: I27.20 Pulmonary hypertension, unspecified (principal); I25.119 Atherosclerotic heart disease of native coronary artery with unspecified angina pectoris; I48.91 Unspecified atrial fibrillation; E66.01 Morbid (severe) obesity due to excess calories; Z68.43 Body mass index [BMI] 50.0-59.9, adult; Z99.81 Dependence on supplemental oxygen; I11.0 Hypertensive heart disease with heart failure; I50.32 Chronic diastolic (congestive) heart failure; N39.0 Urinary tract infection, site not specified; E11.42 Type 2 diabetes mellitus with diabetic polyneuropathy; K21.9 Gastro-esophageal reflux disease without esophagitis; I08.1 Rheumatic disorders of both mitral and tricuspid valves; E78.2 Mixed hyperlipidemia; E11.59 Type 2 diabetes mellitus with other circulatory complications
CPT/HCPCS: 36415; 36416; 71045; 80048; 80053; 81001; 82962; 83735; 84443; 84484; 85025; 87077; 87086; 87186; 93005; 93458; 96372; 96374; 99152; 99153; 99285; C1769; C1887; C1894; C8929; G0378; J1200; J1644; J1650; J1815; J1940; J2250; J3010; J3490; J7030; Q9956; Q9967

== ENCOUNTER 2022-11-01 12:10 | Outpatient (CLI) | payer MEDICARE, SELFPAY ==
--- NOTE | 2022-11-01 12:30 | USCV_ITS ---
Macarena Guardado Age: 67 Gender: F : 1955 Exam Date: 11/01/2022 12:38 Ordering Phys: Katarzyna Levin NP Technologist: Sung Lima Exam Location: [facility] [place] Indication: HISTORY: PROCEDURES: Bilateral duplex Venous Insufficiency study of the Deep and Superficial systems was carried out according to normal protocol with the patient in supine positon for deep system and dependent position for the superficial system. FINDINGS: All deep veins demonstrated compressibility without evidence of intraluminal thrombus or increased echogenicity. Spectral analysis of Doppler signals demonstrates normal response to compression maneuvers indicating patency without obstruction. Reflux determinations were made with the patient in the dependent position, the weight being on the contralateral leg. The greater saphenous vein at the below knee segment on the right side was found to have a reflux time of 1.5 seconds. The venous segment was 0.53 cm in diam indurated up to 0.82 cm. The small saphenous vein on the left side, at its proximal segment was found to have a reflux time at 2.86 seconds. The vein was 0.22 cm in diameter and 0.54 mm. CONCLUSIONS 1. No evidence of DVT in the above-mentioned identifiable veins 2. Significant venous reflux of greater than 500 ms were noted at the below-knee segment of the greater saphenous vein on the right side and proximal segment of the small saphenous vein on the left side. However these venous segments were found to be less than 1 cm deep from the surface . The reflux time, venous dimensions and depth from the surface are as mentioned above Dr Galo Bocanegra MD [facility] (Electronically Signed) Final Date: 02 November 2022 15:11 S
== END 2022-11-01 12:11 | disposition home or self-care (01) ==
PROVIDERS: PCP Family Medicine; Visit Provider Nurse Practitioner Family
DX: I73.89 Other specified peripheral vascular diseases (principal)
CPT/HCPCS: 93970

== ENCOUNTER 2022-11-12 12:04 | Outpatient (CLI) | payer MEDICARE, SELFPAY ==
--- NOTE | 2022-11-12 12:15 | USCV_ITS ---
Macarena Guardado Age: 67 Gender: F : 1955 Exam Date: 11/12/2022 12:24 Ordering Phys: Katarzyna Levin NP Technologist: Exam Location: [facility] Indication: pad pain Risk Factors: Previous Vascular Surgery: RIGHT LEFT BP: 145.0 / 85.00 BP: 145.0/ 85.00 0 0 Waveform Velocity (cm/s) Velocity (cm/s) Waveform Triphasic 164.7 Iliac Prox 170.9 Triphasic Triphasic 149.1 Iliac Mid 136.7 Triphasic Triphasic 136.7 Iliac Distal 164.7 Triphasic Triphasic 122.7 BREAK UP WORKER 147.6 Triphasic Triphasic 125.8 SFA Prox 115.0 Triphasic Triphasic 118.1 SFA Mid 133.6 Triphasic Triphasic SFA Dist Triphasic 119.6 133.6 Triphasic 102.5 POP 109.9 Triphasic Triphasic 110.0 D[employer]TER [employer] 46.1 Triphasic Triphasic 104.1 DPA 95.9 Triphasic 1.1 BELLA 1.1 FINDINGS Normal arterial Doppler waveforms bilaterally Normal arterial Doppler flow velocities bilaterally No unstable plaques or lesions noted Resting BELLA 1.1 on the right and 1.1 on the left CONCLUSIONS 1. Normal resting ABIs bilaterally 2. No evidence of any significant arterial obstruction, based on the above findings. Dr Galo Bocanegra MD [facility] (Electronically Signed) Final Date: 12 November 2022 19:30 S
== END 2022-11-12 12:05 | disposition home or self-care (01) ==
PROVIDERS: PCP Family Medicine; Visit Provider Nurse Practitioner Family
DX: M79.89 Other specified soft tissue disorders (principal); I73.9 Peripheral vascular disease, unspecified
CPT/HCPCS: 93925

== ENCOUNTER → 2022-11-26 10:04 | Outpatient (BNVA) | payer MEDICARE, SELFPAY | PROVIDERS: PCP Family Medicine; Visit Provider Family Medicine | DX: R30.0 Dysuria (principal); M79.606 Pain in leg, unspecified; N39.0 Urinary tract infection, site not specified | CPT/HCPCS: 81003; 87077; 87086; 87184 ==

== ENCOUNTER → 2022-12-03 07:31 | Outpatient (BNVA) | payer MEDICARE, SELFPAY | PROVIDERS: PCP Family Medicine; Visit Provider Internal Medicine | DX: E11.59 Type 2 diabetes mellitus with other circulatory complications (principal); I50.9 Heart failure, unspecified; E78.2 Mixed hyperlipidemia; Z79.84 Long term (current) use of oral hypoglycemic drugs | CPT/HCPCS: 99214 ==

== ENCOUNTER 2022-12-09 15:35 | Emergency (ER) | payer MEDICARE, SELFPAY ==
--- NOTE | 2022-12-09 | XRR_ITS ---
PROCEDURE INFORMATION: Exam: XR Chest Exam date and time: 12/09/2022 4:31 PM Age: 67 years old Clinical indication: Pain; Chest pressure; Additional info: Allergic rxn TECHNIQUE: Imaging protocol: Radiologic exam of the chest. Views: 1 view. COMPARISON: CR XR chest 1V portable [id number] 09/10/2022 7:03 AM FINDINGS: Lungs: Unremarkable. No consolidation. Pleural spaces: Unremarkable. No pleural effusion. No pneumothorax. Heart/Mediastinum: Similar mild cardiomegaly. Bones/joints: Unremarkable. XR/XR chest 1V portable [id number] IMPRESSION: Stable exam, no acute findings.
[2022-12-09 15:40] VITALS: BP 115/73; PULSE 79; RESP 18; TEMP 36.9; O2SAT 100; BMI 60.9
--- NOTE | 2022-12-09 16:06 | ECG_ITS ---
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 Measurements Intervals [place] Rate: 82 P: 0 MN: 0 QRS: -20 QRSD: 82 T: 65 QT: 349 QTc: 409 Interpretive Statements ATRIAL FLUTTER/TACHYCARDIA LOW QRS VOLTAGE [QRS DEFLECTION < 0.5/1.0 mV IN LIMB/CHEST LEADS] POSSIBLE ANTERIOR MYOCARDIAL INFARCTION , PROBABLY OLD [30 ms Q WAVE IN V3/V4, OR R < 0.2 mV IN V4] Compared to ECG 09/11/2022 11:23:10 Myocardial infarct finding now present Atrial fibrillation no longer present Electronically Signed On 12-09-2022 19:53:46 CDT by Galo Bocanegra M.D. [id number]
--- NOTE | 2022-12-09 16:10 | W.ED.CHESTPA ---
HPI - Chest Pain General: Chief Complaint: Chest Pain Stated Complaint: ALLERGIC REACTION Time Seen by Provider: 12/09/22 15:56 History of Present Illness: 7-year-old female presents emergency department with complaints of intermittent sharp stabbing chest pain that started approximate 2 to 3 hours prior to arrival here in the summer department. She states he has had this pain in the past many times and does have nitroglycerin at home. She states she did take a nitroglycerin at approximately 1100 today and a repeat dose approximate 15 minutes later and she states the pain did not get any better. She states upon presentation she is currently pain-free. She states that she has recently been seen by her primary care provider and provided ciprofloxacin and ultimately developed a rash and she has contacted her primary care provider about the rash and advised her to discontinue taking her ciprofloxacin. Review of Systems General: Reports: 10 or more systems reviewed and unremarkable except in HPI and below Card: Reports: chest pain and irregular heart rhythm Skin/Breast: Reports: rash PFSH ED PFSH: Medical History Anemia Anxiety disorder Bilateral leg cramps CAD (coronary artery disease) Cardiac arrhythmia Chest pain CHF (congestive heart failure) CHF (congestive heart failure), NYHA class III Diabetes Diabetic polyneuropathy Diastolic dysfunction Enrolled in chronic care management GERD (gastroesophageal reflux disease) Hiatal hernia History of nonmelanoma skin cancer HTN (hypertension) Hx MRSA infection Hyperlipidemia Interstitial lung disease Morbid obesity Myalgia Panic disorder Post-traumatic stress disorder, chronic Pulmonary hypertension Restless leg syndrome Rheumatoid arthritis Shortness of breath Sleep apnea TIA (transient ischemic attack) Surgical History S/P appendectomy S/P knee surgery Multiple S/P tubal ligation Family History Mother , age 91 Heart disease Diabetes Cancer Breast, cervical, lung Father , Age 93 - CHF Heart disease Grandmother Diabetes Maternal Social History Smoking and tobacco status: never smoked Alcohol intake: current Alcohol intake frequency: holidays/special occasions only Substance/Drug Use: never Current occupation: retired Physical Exam Const: COMMON NORMALS: no acute distress, patient oriented x3 and alert HENMT: COMMON NORMALS: normocephalic, atraumatic, Normal nasal mucous membranes and turbinates present and moist oral mucous membranes HEAD & SCALP: normocephalic and atraumatic NOSE: Normal nasal mucous membranes and turbinates present Eye: COMMON NORMALS: Equal, round and reactive pupils present and EOMs intact bilaterally PUPIL: Yes Equal, round and reactive pupils present Neck/C-Spine: COMMON NORMALS: full ROM, no lymphadenopathy and supple Chest: COMMONS NORMALS: normal palpation of entire chest wall Resp: COMMON NORMALS: normal respiratory effort, No retractions, No use of accessory muscles and clear to auscultation bilaterally AUSCULTATION: clear to auscultation bilaterally Cardio: COMMON NORMALS: regular rate RATE: regular rate RHYTHM: abnormal rhythm irregularly irregular GI: COMMON NORMALS: Normal to inspection, nondistended, normoactive bowel sounds present, Soft to palpation, non-tender and No hepatosplenomegaly present PALPATION: Yes Soft to palpation and Yes No hepatosplenomegaly present : COMMON NORMALS: Yes no CVA tenderness BLADDER/KIDNEY EXAM: Yes no CVA tenderness Back/Pelvis: COMMON NORMALS: no CVA tenderness and thoracic and lumbar spine normal to inspection Extremity: COMMON NORMALS: normal to inspection, full ROM and capillary refill normal Neuro: COMMON NORMALS: patient oriented x3, CN's II-XII intact bilaterally, moves all extremities and no sensory deficits noted SENSORIUM/ORIENTATION: Yes alert Psych: COMMON NORMALS: mental status grossly normal and Normal thought process present THOUGHT PROCESS: Normal thought process present Skin: COMMON NORMALS: no rashes or lesions noted GENERAL SKIN EXAM: no rashes or lesions noted Course Vital Signs: Vital signs: Vital Signs Temperature 98.5 F 12/09/22 15:40 Pulse Rate 82 12/09/22 18:08 Respiratory Rate 18 12/09/22 18:08 Blood Pressure 134/96 12/09/22 18:08 Pulse Oximetry 98 12/09/22 18:08 Oxygen Delivery Me thod Room Air 12/09/22 17:48 Oxygen Flow Rate 3 12/09/22 15:40 MDM - Chest Pain Medical Decision Making Physical exam completed and documented, we will obtain a chest x-ray and twelve-lead EKG as well as serial cardiac enzymes. Will obtain CBC and CMP as well as provide her cardiac dose aspirin and nitroglycerin as needed. I discussed the patient's laboratory findings as well as her EKG findings she does have chronic atrial fibrillation and is being treated for that. We also discussed her drug rash from her previous ciprofloxacin we will have her follow-up with her primary care provider for additional evaluation and treatment of that rash. Patient was discharged home in stable condition in no acute distress. Vital signs are stable at the time of discharge. Medical Records I reviewed the patient's medical records. Lab Data I reviewed the patient's lab results. 12/09/22 15:50 12/09/22 15:50 Radiology Impressions Chest X-Ray 12/09/22 00:00 IMPRESSION: Stable exam, no acute findings. Laboratory Results WBC 13.6 10^3/uL (4.0-10.0) H 12/09/22 15:50 RBC 3.83 10^6/uL (4.1-5.3) L 12/09/22 15:50 Hgb 10.3 g/dL (11.5-15.3) L 12/09/22 15:50 Hct 33.4 % (37.0-47.0) L 12/09/22 15:50 MCV 87.2 fl (81-99) 12/09/22 15:50 MCH 26.9 pg (28.0-34.0) L 12/09/22 15:50 MCHC 30.8 g/dL (30.0-36.0) 12/09/22 15:50 RDW 15.8 % (12.1-15.1) H 12/09/22 15:50 Plt Count 430 10^3/cmm (130-400) H 12/09/22 15:50 MPV 9.8 fL (7.4-10.4) 12/09/22 15:50 Neut % (Auto) 68.8 % 12/09/22 15:50 Lymph % (Auto) 13.4 % 12/09/22 15:50 [place] % (Auto) 6.9 % 12/09/22 15:50 Eos % (Auto) 10.1 % 12/09/22 15:50 Baso % (Auto) 0.3 % 12/09/22 15:50 Neut # (Auto) 9.37 10^3/uL (1.8-7.7) H 12/09/22 15:50 Lymph # (Auto) 1.8 10^3/uL (0.8-4.8) 12/09/22 15:50 [place] # (Auto) 0.9 10^3/uL (0.2-0.9) 12/09/22 15:50 Eos # (Auto) 1.4 10^3/uL (0.0-0.8) H 12/09/22 15:50 Baso # (Auto) 0.0 10^3/uL (0.0-0.1) 12/09/22 15:50 Nucleated RBC % (auto) 0.1 % 12/09/22 15:50 Nucleated RBCs # 0.0 /100WBC 12/09/22 15:50 PT 23.20 SECONDS (12.1-14.9) H 12/09/22 15:50 INR 1.97 (0.8-1.2) H 12/09/22 15:50 APTT 45.3 SECONDS (23.9-36.7) H 12/09/22 15:50 Sodium 131 mmol/L (136-145) L 12/09/22 15:50 Potassium 4.7 mmol/L (3.5-5.1) 12/09/22 15:50 Chloride 95 mmol/L (98-107) L 12/09/22 15:50 Carbon Dioxide 21 mmol/L (22-29) L 12/09/22 15:50 Anion Gap 19.7 (5-19) H 12/09/22 15:50 BUN 8 mg/dL (8-23) 12/09/22 15:50 Creatinine 0.8 mg/dL (0.5-0.9) 12/09/22 15:50 GFR Calculation 71.1 mL/min (90-130) L 12/09/22 15:50 Glucose 163 mg/dL (65-115) H 12/09/22 15:50 POC Glucose 147 mg/dL (70-110) H 12/09/22 16:24 Calculated Osmolality 274 mOsm/kg (285-295) L 12/09/22 15:50 Calcium 8.7 mg/dL (8.5-10.5) 12/09/22 15:50 Total Bilirubin 0.5 mg/dL (0.15-1.2) 12/09/22 15:50 AST 16 U/L (0-32) 12/09/22 15:50 ALT 13 U/L (0-33) 12/09/22 15:50 Alkaline Phosphatase 83 U/L (35-105) 12/09/22 15:50 Troponin T Baseline 23 ng/L (0-10) H 12/09/22 15:50 Troponin T 120 Minute 19.10 ng/L (0-10) H 12/09/22 18:00 Delta Troponin T -3.90 ABS# (0-10) L 12/09/22 18:00 Total Protein 5.7 g/dL (6.6-8.7) L 12/09/22 15:50 Albumin 3.4 g/dL (3.5-5.2) L 12/09/22 15:50 Globulin 2.3 g/dL (1.3-4.6) 12/09/22 15:50 Urine Color Yellow (Yellow) 12/09/22 17:56 Urine Appearance Hazy (CLEAR) A 12/09/22 17:56 Urine pH 5 (5-7) 12/09/22 17:56 Ur Specific [place] 1.010 (1.005-1.030) 12/09/22 17:56 Urine Protein Neg (Negative) 12/09/22 17:56 Urine Glucose (UA) Norm (Normal) 12/09/22 17:56 Urine Ketones Negative (Negative) 12/09/22 17:56 Urine Blood 2+ (Negative) H 12/09/22 17:56 Urine Nitrate Negative (Negative) 12/09/22 17:56 Urine Bilirubin Neg (Negative) 12/09/22 17:56 Urine Urobilinogen Norm mg/dL (Negative) 12/09/22 17:56 Ur Leukocyte Esterase 2+ (Negative) H 12/09/22 17:56 Urine RBC 5-10 /hpf (0-2) H 12/09/22 17:56 Urine WBC 10-15 /hpf (0-5) H 12/09/22 17:56 Ur Squamous Epith Cells 5-10 /hpf (0-5) H 12/09/22 17:56 Amorphous Sediment Not Reportable 12/09/22 17:56 Urine Bacteria 2+ /hpf (NONE) H 12/09/22 17:56 EKG Data EKG 1: I personally reviewed and interpreted this EKG as follows: Interpretation: Twelve-lead EKG was obtained at 1606 demonstrated atrial fibrillation that is rate controlled at 82 bpm, QRS duration is 82, QT is 349 QTc is 388. There is no ST elevation or depression no signs of acute ischemia. Discharge Plan Discharge Patient Disposition: Home Clinical Impression: Chest pain, atypical, Rash and nonspecific skin eruption Condition: Stable Prescriptions: No Action (DME) blood-glucose meter [Accu-Chek Radha Plus Meter] Misc See Rx Instructions .ROUTE .MEDSUPPLY Qty: 1 0RF Rx Instructions: As directed (DME) Accu-Chek Radha Plus test strp Strip See Rx Instructions .ROUTE .MEDSUPPLY Qty: 200 3RF Rx Instructions: As directed twice a day prenat.vits,dylan,[id number]-miqih Tablet 1 tab PO QAM albuterol sulfate 2.5 mg /3 mL (0.083 %) solution for nebulization 2.5 mg INHALATION Q4H PRN (Reason: Shortness Of Breath) Qty: 15 11RF fluticasone propionate [Allergy Relief (fluticasone)] 50 mcg/actuation spray,suspension 2 spray intranasal DAILY PRN (Reason: allergy symptoms) Qty: 15.8 11RF Rx Instructions: administer into each nostril furosemide 40 mg tablet 60 mg PO BID Dose Instruction: TAKE ONE TABLET BY MOUTH TWICE A DAY FOR WEIGHT GAIN gabapentin 300 mg capsule 600 mg PO TID Qty: 180 3RF trazodone 50 mg tablet 50 - 100 mg PO BEDTIME PRN (Reason: Sleep) Dose Instruction: TAKE 1 TO 2 TABLETS BY MOUTH ONCE DAILY AT BEDTIME Mounjaro 10 mg/0.5 mL pen injector 10 mg SUBCUT Q7D 30 Days Qty: 2 0RF Rx Instructions: (NOT STARTED OF 12/09/22) Mounjaro 12.5 mg/0.5 mL pen injector 12.5 mg SUBCUT Q7D Qty: 2 0RF Rx Instructions: (NOT STARTED OF 12/09/22) Mounjaro 15 mg/0.5 mL pen injector 15 mg SUBCUT Q7D Qty: 2 0RF Rx Instructions: (NOT STARTED OF 12/09/22) albuterol sulfate [ProAir HFA] 90 mcg/actuation HFA aerosol inhaler 2 inh inhalation Q6H PRN (Reason: shortness of breath or wheezing) Qty: 8.5 5RF metoprolol tartrate 100 mg tablet 100 mg PO BID Qty: 180 3RF (DME) cpap See Rx Instructions .Route .MEDSUPPLY Qty: 1 0RF Rx Instructions: As directed nitroglycerin 0.4 mg tablet, sublingual 0.4 mg SUBLINGUAL Q5M PRN (Reason: chest pain) Qty: 25 2RF Rx Instructions: Call ambulance if pain is not resolved with 2. metformin 1,000 mg tablet 1,000 mg PO BID Qty: 180 3RF duloxetine [Cymbalta] 60 mg capsule,delayed release(DR/EC) 60 mg PO BID Qty: 60 11RF Mounjaro 7.5 mg/0.5 mL pen injector See Rx Instructions .ROUTE .COMPLEX Qty: 2 1RF Dose Instruction: INJECT 7.5 MG (0.5 ML) SUBCUTANEOUSLY EVERY SEVEN DAYS FOR 30 DAYS Rx Instructions: INJECT 7.5 MG (0.5 ML) SUBCUTANEOUSLY EVERY SEVEN DAY (ON SAT) cefdinir 300 mg capsule 300 mg PO BID Qty: 14 0RF Rx Instructions: for 7 days (rx filled 11/28/22 pt states finished 12/08/22) potassium chloride 10 mEq capsule, extended release 10 meq PO TID Qty: 90 3RF Rx Instructions: MUST have follow-up for further refills ropinirole 0.5 mg tablet 0.5 mg PO TID omeprazole 20 mg capsule,delayed release(DR/EC) 20 mg PO QAM diltiazem HCl 120 mg capsule,extended release 24hr 120 mg PO QAM isosorbide mononitrate 30 mg tablet extended release 24 hr 30 mg PO QAM digoxin 125 mcg (0.125 mg) tablet 125 mcg PO QAM Breztri Aerosphere 160-9-4.8 mcg/actuation HFA aerosol inhaler 2 inh INHALATION BID PRN (Reason: unknown) cyclobenzaprine 10 mg tablet 30 mg PO BEDTIME PRN (Reason: muscle spasm) Adult Aspirin Regimen 81 mg tablet,delayed release (DR/EC) 81 mg PO QAM epinephrine 0.3 mg/0.3 mL auto-injector 0.3 mg IM PRN PRN (Reason: Allergic Reaction) Xarelto 20 mg tablet 20 mg PO QPM Rx Instructions: Must be seen by Dr Bray for further refills. Last 4 appts were cancelled Discharge Orders: Discharge ED (Routine); Ordered 12/09/22 Ordered By: Jeffry Summers Referrals: Yassine Mason DO [Primary Care Provider] - Patient Instructions: Opioid Safety, Pain Management Coding Level of Care Code ED Instructional Interventionist for Shaun Ocampo
[2022-12-09 16:14] LABS: Basophils % 0.3 %; Eosinophils # 1.4 10^3/uL (0.0-0.8); Eosinophils % 10.1 %; Hematocrit 33.4 % (37.0-47.0); Hemoglobin 10.3 g/dL (11.5-15.3); Lymphocytes # 1.8 10^3/uL (0.8-4.8); Lymphocytes % 13.4 %; Mean Corpuscular HGB Conc 30.8 g/dL (30.0-36.0); Mean Corpuscular Hemoglobin 26.9 pg (28.0-34.0); Mean Corpuscular Volume 87.2 fl (81-99); Mean Platelet Volume 9.8 fL (7.4-10.4); Monocytes # 0.9 10^3/uL (0.2-0.9); Monocytes % 6.9 %; Neutrophils # 9.37 10^3/uL (1.8-7.7); Neutrophils % 68.8 %; Nucleated Red Blood Cells % 0.1 %; Platelet Count 430 10^3/cmm (130-400); Red Blood Count 3.83 10^6/uL (4.1-5.3); Red Cell Distribution Width 15.8 % (12.1-15.1); White Blood Count 13.6 10^3/uL (4.0-10.0)
[2022-12-09] MEDS: aspirin 81 mg Chew Tablet 324 MG PO (16:20)
[2022-12-09 16:27] LABS: INR 1.97 (0.8-1.2)
[2022-12-09 16:28] LABS: Glucose Point of Care 147 mg/dL (70-110)
[2022-12-09 16:29] LABS: Partial Thromboplastin Time 45.3 SECONDS (23.9-36.7)
[2022-12-09 16:31] LABS: Alanine Aminotransferase 13 U/L (0-33); Albumin Level 3.4 g/dL (3.5-5.2); Alkaline Phosphatase 83 U/L (35-105); Anion Gap 19.7 (5-19); Aspartate Amino Transferase 16 U/L (0-32); Blood Urea Nitrogen 8 mg/dL (8-23); Calcium 8.7 mg/dL (8.5-10.5); Carbon Dioxide 21 mmol/L (22-29); Chloride 95 mmol/L (98-107); Globulin 2.3 g/dL (1.3-4.6); Glomerular Filtration Rate 71.1 mL/min (90-130); Glucose 163 mg/dL (65-115); Osmolality Calculated 274 mOsm/kg (285-295); Potassium 4.7 mmol/L (3.5-5.1); Sodium 131 mmol/L (136-145); Total Bilirubin 0.5 mg/dL (0.15-1.2); Total Protein 5.7 g/dL (6.6-8.7)
[2022-12-09 16:32] LABS: Troponin(5th) Baseline 23 ng/L (0-10)
--- NOTE | 2022-12-09 17:09 | PC.PHAR ---
PT STATES SHE TAKES CARE OF HER OWN MEDICATIONS-PT STATES SHE IS NO LONGER TAKING RINVOQ ER 15MG DAILY FILLED 11/26/22 90D/S PT STATES NOT TAKEN FOR 2 MONTHS-PT STATES ON SAT 12/08/22 SHE TOOK MOUNJARO 7.5MG STATES HER NEXT SHOT WILL BE THE 10MG Q7D-PT STATES SHE WAS ON IMDUR ER 60MG DAILY LAST FILLED 09/12/22 30D/S PT STATES THE DR DECREASED TO ER 30MG DAILY FILLED 11/12/22 30D/S-PT STATES SHE WAS ON GABAPENTIN 300MG TID FILLED 10/23/22 60D/S PT STATES THE DR INCREASED TO 600MG TID-PT STATES SHE WAS ON LASIX 40MG BID FILLED 10/15/22 90D/S PT STATES THE DR INCREASED TO 60MG BID-PT STATES SHE USES HER BREZTRI INHALER PRN EXT SHOWS LAST FILLED 09/13/22 30D/S 2P BID-PT STATES SHE FINISHED HER CEFDINIR 300MG BID ON SAT 12/08/22 RX FILLED 11/28/22 7D/S-PT STATES SHE IS ALLERGIC TO CIPRO RX FILLED 11/26/22 10D/S 500MG BID PT STATES LAST TOOK Saturday12/06/22-NOTES ARE MADE IN THE PHARMACY COMMENTS
[2022-12-09 17:48] VITALS: BP 102/43; PULSE 82; RESP 14; O2SAT 96
--- NOTE | 2022-12-09 17:56 | ECG_ITS ---
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 Measurements Intervals [place] Rate: 75 P: 0 TN: 0 QRS: -18 QRSD: 89 T: 90 QT: 351 QTc: 392 Interpretive Statements ATRIAL FIBRILLATION LOW QRS VOLTAGE [QRS DEFLECTION < 0.5/1.0 mV IN LIMB/CHEST LEADS] PATTERN CONSISTENT WITH PULMONARY DISEASE MINIMAL ST DEPRESSION [0.025+ mV ST DEPRESSION] Compared to ECG 12/09/2022 16:06:16 ST (T wave) deviation now present Atrial flutter no longer present Myocardial infarct finding no longer present Electronically Signed On 12-09-2022 20:05:33 CDT by Galo Bocanegra M.D. [id number]
[2022-12-09 18:08] VITALS: BP 134/96; PULSE 82; RESP 18; O2SAT 98
[2022-12-09 18:14] LABS: Add Urine Microscopic? YES; Bilirubin Urine Neg (Negative); Blood Urine 2+ (Negative); Glucose Urine UA Norm (Normal); Ketones Urine Negative (Negative); Leukocyte Esterase Urine 2+ (Negative); Nitrate Urine Negative (Negative); Protein Urine Neg (Negative); Urine Appearance Hazy (CLEAR); Urine Color Yellow (Yellow); Urobilinogen Urine Norm (Negative); pH Urine 5 (5-7)
[2022-12-09 18:15] LABS: Add Urine Culture? Yes; Bacteria Urine 2+ /hpf
== END 2022-12-09 19:11 | disposition home or self-care (01) ==
PROVIDERS: Emergency Provider Internal Medicine; PCP Family Medicine
DX: R07.89 Other chest pain (principal); R21 Rash and other nonspecific skin eruption; E11.42 Type 2 diabetes mellitus with diabetic polyneuropathy; I50.9 Heart failure, unspecified; I25.10 Atherosclerotic heart disease of native coronary artery without angina pectoris; E78.5 Hyperlipidemia, unspecified; I48.92 Unspecified atrial flutter; Z86.16 Personal history of COVID-19; Z86.14 Personal history of Methicillin resistant Staphylococcus aureus infection
CPT/HCPCS: 36415; 36416; 71045; 80053; 81001; 82962; 84484; 85025; 85610; 85730; 87086; 93005; 99285

== ENCOUNTER → 2022-12-26 11:40 | Outpatient (BNVA) | payer MEDICARE, SELFPAY | PROVIDERS: PCP Family Medicine; Visit Provider Family Medicine | DX: N39.0 Urinary tract infection, site not specified (principal); F41.9 Anxiety disorder, unspecified; M79.606 Pain in leg, unspecified; E66.01 Morbid (severe) obesity due to excess calories; R30.0 Dysuria; F41.1 Generalized anxiety disorder | CPT/HCPCS: 81000; 87077; 87086; 87184 ==

== ENCOUNTER → 2023-01-14 11:56 | Outpatient (BNVA) | payer MEDICARE, SELFPAY | PROVIDERS: PCP Family Medicine; Visit Provider Family Medicine | DX: N39.0 Urinary tract infection, site not specified (principal); R30.0 Dysuria; M79.606 Pain in leg, unspecified; E66.01 Morbid (severe) obesity due to excess calories | CPT/HCPCS: 81003; 87077; 87086; 87184 ==

== ENCOUNTER → 2023-02-13 09:07 | Outpatient (BNVA) | payer MEDICARE, SELFPAY | PROVIDERS: PCP Family Medicine; Visit Provider Internal Medicine Pulmonary Disease | DX: I27.20 Pulmonary hypertension, unspecified (principal); R09.02 Hypoxemia; I50.32 Chronic diastolic (congestive) heart failure; I48.20 Chronic atrial fibrillation, unspecified; E66.2 Morbid (severe) obesity with alveolar hypoventilation; Z99.89 Dependence on other enabling machines and devices; M06.9 Rheumatoid arthritis, unspecified; Z68.43 Body mass index [BMI] 50.0-59.9, adult | CPT/HCPCS: 99214 ==

== ENCOUNTER 2023-02-25 12:01 | Inpatient (IN) | payer MEDICARE, SELFPAY ==
[2023-02-25] VITALS (32 sets, daily range): BP systolic 99–177; BP diastolic 62–116; PULSE 74–165; RESP 11–27; TEMP 37–37.1; O2SAT 81–100; BMI 52.0
[2023-02-25 12:37] LABS: Basophils # 0.1 10^3/uL (0.0-0.1); Basophils % 0.7 %; Eosinophils # 0.3 10^3/uL (0.0-0.8); Eosinophils % 3.5 %; Hematocrit 40.4 % (36-47); Lymphocytes # 1.9 10^3/uL (0.8-4.8); Lymphocytes % 22.5 %; Mean Corpuscular HGB Conc 31.2 g/dL (30-55); Mean Corpuscular Hemoglobin 24.7 pg (27-33); Mean Corpuscular Volume 79.1 fl (85-98); Mean Platelet Volume 9.5 fL (7.4-10.4); Monocytes # 0.8 10^3/uL (0.2-0.9); Monocytes % 9.6 %; Neutrophils # 5.19 10^3/uL (1.8-7.7); Neutrophils % 63.3 %; Nucleated Red Blood Cells % 0 %; Platelet Count 482 10^3/cmm (157-399); Red Blood Count 5.11 10^6/uL (3.85-5.65); Red Cell Distribution Width 15.9 % (12.1-15.1); White Blood Count 8.21 10^3/uL (3.29-11.43)
[2023-02-25 12:59] LABS: Alanine Aminotransferase 16 U/L (0-33); Albumin Level 4.1 g/dL (3.5-5.2); Alkaline Phosphatase 80 U/L (35-105); Anion Gap 17.5 (5-19); Aspartate Amino Transferase 22 U/L (0-32); Blood Urea Nitrogen 9 mg/dL (8-23); Calcium 8.9 mg/dL (8.5-10.5); Carbon Dioxide 29 mmol/L (22-29); Chloride 93 mmol/L (98-107); Globulin 2.9 g/dL (1.3-4.6); Glomerular Filtration Rate 62.1 mL/min (90-130); Glucose 152 mg/dL (65-115); Lipase 15 U/L (13-60); Osmolality Calculated 284 mOsm/kg (285-295); Potassium 3.5 mmol/L (3.5-5.1); Sodium 136 mmol/L (136-145); Total Bilirubin 0.6 mg/dL (0.15-1.2)
--- NOTE | 2023-02-25 13:48 | XR_ITS ---
WS: [id number] Exam: XR chest 1V portable [id number] Date/Time of Exam: 02/25/2023 1:48 PM Reason For Exam: weakness Comparison 12/09/2022. The lungs are clear and fully expanded. Normal cardiomediastinal silhouette. No pleural effusions. Ol d LEFT sixth rib fracture. Bony elements are otherwise unremarkable. IMPRESSION: 1. No acute cardiopulmonary finding.
--- NOTE | 2023-02-25 13:52 | W.ED.WEAKNES ---
HPI - Weakness General: Chief complaint: Weakness Stated complaint: NV/lightheaded/weakness Time Seen by Provider: 02/25/23 13:30 Source: patient Mode of arrival: ambulatory Limitations: no limitations History of Present Illness: 67-year-old female states over the last 3 to 4 days she has not been feeling well. She states that she has had some fatigue and malaise body aches along with nausea and vomiting she feels like she may have the flu she feels like she is dehydrated now she has not been tolerating p.o. she denies any abdominal pain denies any fevers denies any shortness of breath. Associated symptoms: Reports nausea and vomiting; Denies chest pain, chills, dysuria, fever(s) or headache(s) Review of Systems Const: Reports: fatigue and malaise; Denies: fever(s) or chills ENMT: Denies: throat pain or dental pain Card: Denies: chest pain Resp: Denies: dyspnea GI: Reports: nausea and vomiting; Denies: abdominal pain or diarrhea : Denies: dysuria Musc: Denies: neck pain or back pain Skin/Breast: Denies: rash Neuro: Denies: headache(s) PFSH ED PFSH: Medical History Anemia Anxiety disorder Bilateral leg cramps CAD (coronary artery disease) Cardiac arrhythmia Chest pain CHF (congestive heart failure) CHF (congestive heart failure), NYHA class III Diabetes Diabetic polyneuropathy Diastolic dysfunction Enrolled in chronic care management GERD (gastroesophageal reflux disease) Hiatal hernia History of nonmelanoma skin cancer HTN (hypertension) Hx MRSA infection Hyperlipidemia Interstitial lung disease Morbid obesity Myalgia Panic disorder Post-traumatic stress disorder, chronic Pulmonary hypertension Restless leg syndrome Rheumatoid arthritis Shortness of breath Sleep apnea TIA (transient ischemic attack) Surgical History S/P appendectomy S/P knee surgery Multiple S/P tubal ligation Family History Mother , age 91 Heart disease Diabetes Cancer Breast, cervical, lung Father , Age 93 - CHF Heart disease Grandmother Diabetes Maternal Social History Smoking and tobacco/nicotine status: never used tobacco/nicotine Alcohol intake: current Alcohol intake frequency: holidays/special occasions only Substance/Drug Use: never Current occupation: retired Physical Exam Const: COMMON NORMALS: patient oriented x3 HENMT: COMMON NORMALS: normocephalic and atraumatic HEAD & SCALP: normocephalic and atraumatic Eye: COMMON NORMALS: Equal, round and reactive pupils present and EOMs intact bilaterally PUPIL: Yes Equal, round and reactive pupils present Neck/C-Spine: COMMON NORMALS: full ROM and supple Chest: COMMONS NORMALS: normal inspection of the chest and normal palpation of entire chest wall Resp: COMMON NORMALS: normal respiratory effort, No retractions, No use of accessory muscles and clear to auscultation bilaterally AUSCULTATION: clear to auscultation bilaterally Cardio: COMMON NORMALS: No murmurs present (Cardio) RATE: tachycardic RHYTHM: abnormal rhythm irregularly irregular GI: COMMON NORMALS: Normal to inspection, nondistended, normoactive bowel sounds present, Soft to palpation, non-tender and no masses PALPATION: Yes Soft to palpation Extremity: COMMON NORMALS: normal to inspection and full ROM Neuro: COMMON NORMALS: patient oriented x3, moves all extremities and no focal motor deficits Psych: COMMON NORMALS: mental status grossly normal, Normal thought process present and cooperative THOUGHT PROCESS: Normal thought process present Skin: COMMON NORMALS: no rashes or lesions noted and no wounds GENERAL SKIN EXAM: no rashes or lesions noted Course Vital Signs: Vital signs: Vital Signs Temperature 98.7 F 02/25/23 12:21 Pulse Rate 107 H 02/25/23 15:15 Respiratory Rate 18 02/25/23 15:15 Blood Pressure 127/79 02/25/23 15:15 Pulse Oximetry 97 02/25/23 15:15 Oxygen Delivery Me thod Room Air 02/25/23 15:15 MDM - Weakness Medical Decision Making Patient presents here with A-fib with RVR along with vomiting did have start her on a Cardizem drip her heart rate is improving her blood work here is normal she has no abdominal pain no chest pain COVID fluid negative spoke to hospitalist will admit at this time. Medical Records I reviewed the patient's medical records. Lab Data I reviewed the patient's lab results. 02/25/23 12:02/25/23 12:28 Laboratory Results WBC 8.21 10^3/uL (3.29-11.43) 02/25/23 12: RBC 5.11 10^6/uL (3.85-5.65) 02/25/23 12: Hgb 12.60 g/dL (11.27-16.99) 02/25/23 12: Hct 40.4 % (36-47) 02/25/23 12: MCV 79.1 fl (85-98) L 02/25/23 12: MCH 24.7 pg (27-33) L 02/25/23 12: MCHC 31.2 g/dL (30-55) 02/25/23 12: RDW 15.9 % (12.1-15.1) H 02/25/23 12: Plt Count 482 10^3/cmm (157-399) H 02/25/23 12: MPV 9.5 fL (7.4-10.4) 02/25/23 12: Neut % (Auto) 63.3 % 02/25/23 12: Lymph % (Auto) 22.5 % 02/25/23 12: [place] % (Auto) 9.6 % 02/25/23 12: Eos % (Auto) 3.5 % 02/25/23 12: Baso % (Auto) 0.7 % 02/25/23 12: Neut # (Auto) 5.19 10^3/uL (1.8-7.7) 02/25/23 12: Lymph # (Auto) 1.9 10^3/uL (0.8-4.8) 02/25/23 12: Preble # (Auto) 0.8 10^3/uL (0.2-0.9) 02/25/23 12: Eos # (Auto) 0.3 10^3/uL (0.0-0.8) 02/25/23 12: Baso # (Auto) 0.1 10^3/uL (0.0-0.1) 02/25/23 12: Nucleated RBC % (auto) 0 % 02/25/23 12: Nucleated RBCs # 0.0 /100WBC 02/25/23 12:28 Sodium 136 mmol/L (136-145) 02/25/23 12:28 Potassium 3.5 mmol/L (3.5-5.1) 02/25/23 12:28 Chloride 93 mmol/L (98-107) L 02/25/23 12:28 Carbon Dioxide 29 mmol/L (22-29) 02/25/23 12:28 Anion Gap 17.5 (5-19) 02/25/23 12:28 BUN 9 mg/dL (8-23) 02/25/23 12:28 Creatinine 0.9 mg/dL (0.5-0.9) 02/25/23 12:28 GFR Calculation 62.1 mL/min (90-130) L 02/25/23 12:28 Glucose 152 mg/dL (65-115) H 02/25/23 12:28 Calculated Osmolality 284 mOsm/kg (285-295) L 02/25/23 12:28 Calcium 8.9 mg/dL (8.5-10.5) 02/25/23 12:28 Total Bilirubin 0.6 mg/dL (0.15-1.2) 02/25/23 12:28 AST 22 U/L (0-32) 02/25/23 12:28 ALT 16 U/L (0-33) 02/25/23 12:28 Alkaline Phosphatase 80 U/L (35-105) 02/25/23 12:28 Total Protein 7.0 g/dL (6.6-8.7) 02/25/23 12:28 Albumin 4.1 g/dL (3.5-5.2) 02/25/23 12:28 Globulin 2.9 g/dL (1.3-4.6) 02/25/23 12:28 Lipase 15 U/L (13-60) 02/25/23 12:28 Influenza Type A Ag negative (Negative) 02/25/23 15:00 Influenza Type B Ag negative (Negative) 02/25/23 15:00 SARS-CoV-2 Ag (Rapid) negative (Negative) 02/25/23 15:00 All radiology interpretation(s) finalized by discharge EKG Data EKG 1: I personally reviewed and interpreted this EKG as follows: EKG interpretation date: 02/25/23 EKG interpretation time: 14:33 Interpretation: afib with rvr hr [address] or t wave abnormalities qrs 80 qtc 347 Critical Care Time Critical Care Time: Critical Care Time: Yes Total Critical Care Time: 45 Attestation: The high probability of a clinically significant, sudden or life threatening deterioration of the patient's cv system(s) required my full and direct attention, intervention and personal management. The critical care time is as shown. This time is in addition to time spent performing any reported procedures but includes the following: [x] Data and vital sign review and interpretation [x] Patient assessment, examination and intervention [x] Documentation [x] Medication orders and management Discharge Plan Discharge Patient Disposition: Admitted As Inpatient Admit Provider: Jaspreet Aviles Clinical Impression: Atrial fibrillation with RVR, Vomiting Condition: Stable Coding Level of Care Code ED Dough Cutting Machine Operator for Shaun Ocampo
--- NOTE | 2023-02-25 14:28 | PC.PHAR ---
PT STATES HAS NOT BEEN ABLE TO KEEP ANYTHING DOWN FOR 3 DAYS, SO SHE HAS TAKEN NO MEDICATIONS, NOT EVEN BLOOD THINNER, IN 3 DAYS.
--- NOTE | 2023-02-25 14:33 | ECG_ITS ---
[facility] Test Date: 2023-02-25 Pat Name: Macarena Guardado Department: Room: Gender: Female Assistant Designer: : [id number] Requested By: Aaron Parikh Order Number: [id number] Nimisha MD: Nikki Bray M.D. Measurements Intervals [place] Rate: 116 P: 0 ND: 0 QRS: -49 QRSD: 80 T: 144 QT: 278 QTc: 386 Interpretive Statements ATRIAL FIBRILLATION WITH RAPID VENTRICULAR RESPONSE LOW QRS VOLTAGE IN PRECORDIAL LEADS [QRS DEFLECTION < 1.0 mV IN CHEST LEADS] PATTERN CONSISTENT WITH PULMONARY DISEASE LEFT ANTERIOR FASCICULAR BLOCK [QRS AXIS <= -45, QR IN I, RS IN II] SEPTAL MYOCARDIAL INFARCTION , PROBABLY OLD [40+ ms Q WAVE IN V1/V2] Compared to ECG 12/09/2022 18:14:01 Left anterior fascicular block now present Myocardial infarct finding now present ST (T wave) deviation no longer present Electronically Signed On 02-25-2023 17:44:49 CDT by Nikki Bray M.D. [email or web address]
[2023-02-25] MEDS: ondansetron 2 mg/ML SDV 2 mL 4 MG IVP (14:52)
[2023-02-25] MEDS: dilTIAZem 5 mg/mL SDV 5 mL 15 MG IVP (14:53)
[2023-02-25] MEDS: sodium chloride 0.9% 1,000 ML 999 ML IV (14:54)
[2023-02-25 15:54] LABS: SARS Covid-2 Antigen negative (Negative)
[2023-02-25 15:55] LABS: Influenza A by IFA negative (Negative); Influenza B by IFA negative (Negative)
[2023-02-25 17:02] LABS: Add Urine Microscopic? YES; Bilirubin Urine 1+ (Negative); Blood Urine Trace (Negative); Glucose Urine UA Norm (Normal); Ketones Urine 1+ (Negative); Leukocyte Esterase Urine 2+ (Negative); Nitrate Urine Negative (Negative); Protein Urine 1+ (Negative); Specific Gravity, Urine 1.025 (1.005-1.030); Urine Appearance Hazy (CLEAR); Urine Color Yellow (Yellow); Urobilinogen Urine Norm (Negative); pH Urine 5 (5-7)
[2023-02-25] MEDS: dilTIAZem 100 MG in sodium chloride 0.9% (add-van) 100 ML IV (17:19)
[2023-02-25 17:22] LABS: Bacteria Urine 4+ /hpf; Mucus Urine 2+ /hpf; WBC Urine 80-100 /hpf (0-5)
[2023-02-25 17:23] LABS: Add Urine Culture? Yes; Calcium Oxalate Crystals Urine 55-80 /hpf
--- NOTE | 2023-02-25 18:23 | P.HP_ITS ---
Providers/Chief Complaint Admitting Physician: Jaspreet Aviles MD Primary Care Provider: Yassine Mason DO Chief Complaint: NV/lightheaded/weakness History of Present Illness Macarena Guardado is a 67 year old female with with a past medical history of morbid obesity, atrial fibrillation on Xarelto, type 2 diabetes mellitus on metformin, hypertension, hyperlipidemia, who presents to [facility] due to cough, congestion, poor oral intake, nausea. Patient tells me that her roommate tested positive for parainfluenza virus, she was hospitalized for 4 days due to dehydration, she was having symptoms of fatigue, malaise, fevers, cough. Patient tells me that she was exposed, so for the last week, she has also had fatigue, malaise, poor appetite, cough, congestion, she has not taken her oral medications for the last few days due to poor oral intake, nausea, denies any abdominal pain, no diarrhea, no chest pain, no palpitations, no hemoptysis Review of Systems Const: Reports: fever(s) Eyes: Denies: change in vision Card: Denies: chest pain Resp: Reports: dyspnea and non-productive cough GI: Reports: nausea; Denies: abdominal pain : Denies: flank pain or difficulty voiding Medications/Allergies Home Medications Medication Instructions Recorded Confirmed Last Taken Type blood sugar diagnostic (Accu-Chek #200 ea 08/10/19 02/25/23 12/18/19 Rx Radha Plus test strips) blood-glucose meter (Accu-Chek #1 ea 08/10/19 02/25/23 12/18/19 Rx Radha Plus Meter) albuterol sulfate 90 mcg/actuation 2 inh inhalation Q6H PRN shortness 09/16/20 02/25/23 Unknown Rx aerosol inhaler (ProAir HFA) of breath or wheezing #8.5 grams albuterol sulfate 2.5 mg/3 mL 2.5 mg (3 mL) inhalation Q4H PRN 02/01/21 02/25/23 Unknown Rx (0.083 %) solution for nebulization Shortness Of Breath #15 mL metoprolol tartrate 100 mg tablet 100 mg PO BID #180 tabs 02/07/21 02/25/23 3 Days Ago Rx ~02/22/23 fluticasone propionate 50 2 spray intranasal DAILY PRN 07/26/21 02/25/23 Unknown Rx mcg/actuation nasal allergy symptoms #15.8 mL spray,suspension (Allergy Relief (fluticasone)) cpap #1 ea 08/11/21 02/25/23 Unknown Rx nitroglycerin 0.4 mg sublingual 0.4 mg sublingual Q5M PRN chest 04/16/22 02/25/23 12/09/22 Rx tablet pain #25 tabs 2 tabs metformin 1,000 mg tablet 1,000 mg PO BID #180 tabs 07/23/22 02/25/23 3 Days Ago Rx ~02/22/23 duloxetine 60 mg capsule,delayed 60 mg PO BID #60 caps 08/22/22 02/25/23 3 Days Ago Rx release (Cymbalta) ~02/22/23 diltiazem HCl 120 mg 120 mg PO QAM 09/10/22 02/25/23 3 Days Ago History capsule,extended release 24 hr ~02/22/23 omeprazole 20 mg capsule,delayed 20 mg PO QAM 09/10/22 02/25/23 3 Days Ago History release ~02/22/23 ropinirole 0.5 mg tablet 0.5 mg PO TID 09/10/22 02/25/23 3 Days Ago History ~02/22/23 furosemide 40 mg tablet 60 mg PO BID 10/22/22 02/25/23 3 Days Ago History ~02/22/23 gabapentin 300 mg capsule 600 mg PO TID #180 caps 10/22/22 02/25/23 3 Days Ago Rx ~02/22/23 trazodone 50 mg tablet 50 - 100 mg PO BEDTIME PRN Sleep 11/26/22 02/25/23 3 Days Ago History ~02/22/23 potassium chloride 10 mEq 10 meq PO TID #90 caps 12/03/22 02/25/23 3 Days Ago Rx capsule,extended release ~02/22/23 tirzepatide 15 mg/0.5 mL 15 mg (0.5 mL) SUBCUT Q7D #2 mL 12/03/22 02/25/23 Unknown Rx subcutaneous pen injector (Javier) aspirin 81 mg tablet,delayed 81 mg PO QAM 12/09/22 02/25/23 3 Days Ago History release (Adult Aspirin Regimen) ~02/22/23 budesonide 160 mcg-glycopyr 9 2 inh inhalation BID PRN unknown 12/09/22 02/25/23 02/25/23 History mcg-formot 4.8 mcg/actuation HFA inhaler (Breztri Aerosphere) cyclobenzaprine 10 mg tablet 30 mg PO BEDTIME PRN muscle spasm 12/09/22 02/25/23 3 Days Ago History ~02/22/23 digoxin 125 mcg (0.125 mg) tablet 125 mcg PO QAM 12/09/22 02/25/23 3 Days Ago History ~02/22/23 epinephrine 0.3 mg/0.3 mL 0.3 mg IM PRN PRN Allergic Reaction 12/09/22 02/25/23 Unknown History injection, auto-injector isosorbide mononitrate 30 mg 30 mg PO QAM 12/09/22 02/25/23 3 Days Ago History tablet,extended release 24 hr ~02/22/23 rivaroxaban 20 mg tablet (Xarelto) 20 mg PO QPM 12/09/22 02/25/23 3 Days Ago History ~02/22/23 diphenoxylate-atropine 2.5 1 tab PO QID PRN diarrhea #20 tabs 02/06/23 02/25/23 Unknown Rx mg-0.025 mg tablet nystatin 100,000 unit/gram topical 1 applic topical TID 02/25/23 02/25/23 3 Days Ago History powder ~02/22/23 vit no.133-ferrous 1 tab PO QAM 02/25/23 02/25/23 3 Days Ago History fumarate 28 mg-folic acid 800 mcg ~02/22/23 tablet () upadacitinib 15 mg tablet,extended 15 mg PO DAILY 02/25/23 02/25/23 3 Days Ago History release 24 hr (Rinvoq) ~02/22/23 Allergies Allergy/AdvReac Type Severity Reaction Status Date / Time meperidine Allergy Unknown Unknown Verified 02/25/23 10:27 amobarbital Allergy Unknown Verified 02/25/23 10:27 bee venom protein (honey bee) Allergy ALGY-Anaphy Verified 02/25/23 10:27 laxis ciprofloxacin [From Cipro] Allergy Unknown Verified 02/25/23 10:27 hydroxychloroquine Allergy Unknown Verified 02/25/23 10:27 [From Plaquenil] Penicillins Allergy Unknown Verified 02/25/23 10:27 Sulfa (Sulfonamide Allergy Unknown Verified 02/25/23 10:27 Antibiotics) sulfamethoxazole Allergy ALGY-Rash Verified 02/25/23 10:27 [From Bactrim] trimethoprim [From Bactrim] Allergy ALGY-Rash Verified 02/25/23 10:27 aspartame AdvReac Unknown ADR-Headach Verified 02/25/23 10:27 e PFSH Acute PFSH: Medical History Anemia Anxiety disorder Bilateral leg cramps CAD (coronary artery disease) Cardiac arrhythmia Chest pain CHF (congestive heart failure) CHF (congestive heart failure), NYHA class III Diabetes Diabetic polyneuropathy Diastolic dysfunction Enrolled in chronic care management GERD (gastroesophageal reflux disease) Hiatal hernia History of nonmelanoma skin cancer HTN (hypertension) Hx MRSA infection Hyperlipidemia Interstitial lung disease Morbid obesity Myalgia Panic disorder Post-traumatic stress disorder, chronic Pulmonary hypertension Restless leg syndrome Rheumatoid arthritis Shortness of breath Sleep apnea TIA (transient ischemic attack) Surgical History S/P appendectomy S/P knee surgery Multiple S/P tubal ligation Family History Mother , age 91 Heart disease Diabetes Cancer Breast, cervical, lung Father , Age 93 - CHF Heart disease Grandmother Diabetes Maternal Social History Smoking and tobacco/nicotine status: never used tobacco/nicotine Alcohol intake: current Alcohol intake frequency: holidays/special occasions only Substance/Drug Use: never Current occupation: retired Vitals/I&O/Wt Last Vital Signs Temp 98.7 F 02/25/23 12:21 Pulse 107 H 02/25/23 15:15 Resp 18 02/25/23 15:15 BP 127/79 02/25/23 15:15 Pulse Ox 97 02/25/23 15:15 O2 Del Method Room Air 02/25/23 15:15 02/25/23 02/25/23 02/25/23 06:59 14:59 22:59 Intake Total 1000 / 1000 Balance 1000 / 1000 Weight last 48 hrs Weight 137.438 kg Physical Exam Const: COMMON NORMALS: no acute distress and patient oriented x3 HENMT: COMMON NORMALS: normocephalic HEAD & SCALP: normocephalic Eye: COMMON NORMALS: Equal, round and reactive pupils present and EOMs intact bilaterally Neck/C-Spine: COMMON NORMALS: no JVD Lymph: LYMPHATIC: no lymphadenopathy noted Resp: COMMON NORMALS: normal respiratory effort, No retractions, No use of accessory muscles and clear to auscultation bilaterally AUSCULTATION: clear to auscultation bilaterally Cardio: COMMON NORMALS: no JVD, regular rate, regular rhythm, S1 normal heart sound present and S2 normal heart sound present RATE: tachycardic RHYTHM: abnormal rhythm irregularly irregular HEART SOUNDS: S1 normal heart sound present and S2 normal heart sound present GI: COMMON NORMALS: Normal to inspection, nondistended, normoactive bowel sounds present, Soft to palpation, non-tender, No hepatosplenomegaly present, no masses and no bruits PALPATION: Yes Soft to palpation and Yes No hepatosplenomegaly present Back/Pelvis: COMMON NORMALS: no CVA tenderness Extremity: COMMON NORMALS: capillary refill normal, no clubbing, cyanosis or edema, no calf tenderness and no pedal edema Neuro: COMMON NORMALS: patient oriented x3, CN's II-XII intact bilaterally, moves all extremities and no focal motor deficits Psych: COMMON NORMALS: mental status grossly normal Data 02/25/23 12:28 02/25/23 12:28 A&P Assessment and plan (1) Atrial fibrillation with RVR: (2) Vomiting: (3) Dehydration: (4) Cough: (5) Type 2 diabetes mellitus: (6) CHF (congestive heart failure), NYHA class III: Qualifiers: Congestive heart failure type: diastolic Congestive heart failure chronicity: chronic Qualified Code(s): I50.32 - Chronic diastolic (congestive) heart failure (7) HTN (hypertension): (8) Hyperlipidemia: Qualifiers: Hyperlipidemia type: mixed hyperlipidemia Qualified Code(s): E78.2 - Mixed hyperlipidemia (9) Morbid obesity: (10) Pulmonary hypertension: (11) Sleep apnea: Qualifiers: Sleep apnea type: obstructive Qualified Code(s): G47.33 - Obstructive sleep apnea (adult) (pediatric) (12) Diabetes: Qualifiers: Diabetes mellitus type: type 2 Diabetes mellitus halfway insulin use: without exterminator helper use Diabetes mellitus complication status: with circulatory complication Diabetes mellitus complication detail: with other circulatory complications Qualified Code(s): E11.59 - Type 2 diabetes mellitus with other circulatory complications (13) Viral URI with cough: Plan Viral URI with cough -Flu negative, COVID-negative -Respiratory viral panel -DuoNeb, -budesonide ? Yaw Cedeño A-fib with RVR -Cardizem drip -Magnesium -Continue Xarelto -Continue metoprolol, digoxin, get digoxin level, continue Cardizem p.o. Type 2 diabetes mellitus, A1c, low-dose sliding scale Dehydration, gentle IV hydration Obtain a UA, following culture,renal us Renal ultrasound Full code Xarelto for DVT prophylaxis Attestations Medical Necessity Statement*: Patient requires hospitalization, inpatient, greater than 2 midnights for A-fib with RVR, viral URI Diagnoses Atrial fibrillation with RVR I48.91 Vomiting R11.10 Dehydration E86.0 Cough R05.9 Type 2 diabetes mellitus E11.9 CHF (congestive heart failure), NYHA class III I50.32 Congestive heart failure type: diastolic Congestive heart failure chronicity: chronic HTN (hypertension) I10 Hyperlipidemia E78.2 Hyperlipidemia type: mixed hyperlipidemia Morbid obesity E66.01 Pulmonary hypertension I27.20 Sleep apnea G47.33 Sleep apnea type: obstructive Diabetes E11.59 Diabetes mellitus type: type 2 Diabetes mellitus halfway insulin use: without halfway use Diabetes mellitus complication status: with circulatory complication Diabetes mellitus complication detail: with other circulatory complications Viral URI with cough J06.9
--- NOTE | 2023-02-25 18:54 | US_ITS ---
WS: [id number] RENAL ULTRASOUND HISTORY: wbc in urine, COMPARISON: None available. TECHNIQUE: 2-D and color Doppler imaging of the kidney submitted. Right kidney: 12.5 cm x 4.8 cm x 4.8 cm. Cortex: 1.5 cm Normal size kidney. Calcification with mild shadowing in the central renal pelvis is nonobstructing. Calcification measures 1.8 cm at its maximum. There is no hydronephrosis and no solid mass. Left kidney: 12.7 cm x 5.9 cm x 5.3 cm. Cortex: 1.6 cm Normal echogenicity with no hydronephrosis or mass. Aorta: Normal. Urinary Bladder: Normally distended urinary bladder. No ureteral jets are identified. IMPRESSION: 1. No hydronephrosis. 2. Central RIGHT renal pelvis calcification at 1.8 cm. 3. No mass. 4. Normally distended urinary bladder. No ureteral jets are noted at this time but there is no hydron ephrosis to suggest an obstruction.
[2023-02-25 19:44] LABS: Estmated Average Glucose 157; Hemoglobin A1C 7.1 % (4.0-6.0)
[2023-02-25 19:49] LABS: Digoxin 1.1 ng/mL (0.6-1.2)
[2023-02-25 19:54] LABS: Thyroid Stimulating Hormone 2.82 uIU/mL (0.27-4.20)
[2023-02-25 19:56] LABS: Magnesium 0.9 mg/dL (1.7-2.3)
[2023-02-25] MEDS: pneumococcal (23 valent) SDV 0.5 mL IM (20:15)
[2023-02-25] MEDS: rivaroxaban 10 mg Tablet 20 MG PO (20:19)
[2023-02-25] MEDS: pantoprazole 40 mg SDV IVP (20:20)
[2023-02-25] MEDS: magnesium sulfate premix 2 GM/50 ML PIGGYBACK IV (20:20)
[2023-02-25] MEDS: gabapentin 300 mg Capsule 600 MG PO (20:20)
[2023-02-25] MEDS: ropinirole 0.25 mg Tablet 0.5 MG PO (20:20)
[2023-02-25] MEDS: sodium chloride 0.9% 1,000 ML 50 ML IV (20:21)
[2023-02-25 20:30] LABS: Glucose Point of Care 144 mg/dL (70-110)
[2023-02-25] MEDS: budesonide 0.5 mg/2 mL Neb INHALATION (20:33)
[2023-02-25 22:11] LABS: Adenovirus Not Detected (NOT DETECT); Chlamydia Pneumoniae Not Detected (NOT DETECT); Coronavirus 229E,HKU1,NL63,OC4 Not Detected (NOT DETECT); Human Metapneumovirus Not Detected (NOT DETECT); Human Rhinovirus/Enterovirus Not Detected (NOT DETECT); Influenza A Not Detected (NOT DETECT); Influenza A H1 Not Detected (NOT DETECT); Influenza A H1-2009 Not Detected (NOT DETECT); Influenza A H3 Not Detected (NOT DETECT); Influenza B Not Detected (NOT DETECT); Mycoplasma Pneumoniae Not Detected (NOT DETECT); Parainfluenza Virus Type 1 Not Detected (NOT DETECT); Parainfluenza Virus Type 2 Not Detected (NOT DETECT); Parainfluenza Virus Type 3 Not Detected (NOT DETECT); Parainfluenza Virus Type 4 Not Detected (NOT DETECT); Respiratory Syncytial Virus A Not Detected (NOT DETECT); Respiratory Syncytial Virus B Not Detected (NOT DETECT); SARS-COV-2 Not Detected (NOT DETECT)
[2023-02-26] VITALS (75 sets, daily range): BP systolic 79–161; BP diastolic 60–97; PULSE 53–98; RESP 9–31; TEMP 36.6–36.9; O2SAT 88–100
[2023-02-26] MEDS: dilTIAZem 100 MG in sodium chloride 0.9% (add-van) 100 ML 10 MG IV (02:22)
[2023-02-26 04:43] LABS: Basophils # 0.1 10^3/uL (0.0-0.1); Basophils % 0.9 %; Eosinophils # 0.5 10^3/uL (0.0-0.8); Eosinophils % 5.3 %; Hematocrit 38.2 % (36-47); Lymphocytes # 1.6 10^3/uL (0.8-4.8); Lymphocytes % 18.2 %; Mean Corpuscular HGB Conc 30.4 g/dL (30-55); Mean Corpuscular Hemoglobin 24.4 pg (27-33); Mean Corpuscular Volume 80.3 fl (85-98); Mean Platelet Volume 9.8 fL (7.4-10.4); Monocytes # 0.9 10^3/uL (0.2-0.9); Monocytes % 10.6 %; Neutrophils % 64.7 %; Nucleated Red Blood Cells % 0 %; Platelet Count 458 10^3/cmm (157-399); Red Blood Count 4.76 10^6/uL (3.85-5.65); White Blood Count 8.83 10^3/uL (3.29-11.43)
[2023-02-26 05:13] LABS: Anion Gap 16.8 (5-19); Blood Urea Nitrogen 10 mg/dL (8-23); Calcium 8.4 mg/dL (8.5-10.5); Carbon Dioxide 29 mmol/L (22-29); Chloride 94 mmol/L (98-107); Glomerular Filtration Rate 71.1 mL/min (90-130); Glucose 171 mg/dL (65-115); Magnesium 1.5 mg/dL (1.7-2.3); Osmolality Calculated 287 mOsm/kg (285-295); Phosphorus 3.8 mg/dL (2.5-4.5); Sodium 137 mmol/L (136-145)
[2023-02-26 05:15] LABS: Chol HDL Ratio 6.17 mg/dL (0.0-4.40); Cholesterol 179 mg/dL (0-200); HDL Cholesterol 29 mg/dL (60-100); LDL Cholesterol Calculated 116 mg/dL (50-129); NT Pro B Type Natriuretic Pept 179 pg/mL (0-125); Triglycerides 169 mg/dL (0-150)
[2023-02-26 05:27] LABS: Potassium 2.8 mmol/L (3.5-5.1)
[2023-02-26] MEDS: aspirin 81 mg EC Tablet PO (06:24)
[2023-02-26] MEDS: isosorbide mononitrate ER 30 mg Tablet PO (06:24)
[2023-02-26] MEDS: pantoprazole DR 40 mg Tablet PO (06:24)
[2023-02-26] MEDS: dilTIAZem ER (24HR) 120 mg Capsule PO (06:24)
[2023-02-26] MEDS: digoxin 125 mcg Tablet PO (06:25)
[2023-02-26 06:36] LABS: Glucose Point of Care 138 mg/dL (70-110)
[2023-02-26] MEDS: gabapentin 300 mg Capsule 600 MG PO ×3 (07:32→21:43)
[2023-02-26] MEDS: duloxetine 60 mg Capsule PO ×2 (07:32→17:42)
[2023-02-26] MEDS: metoprolol tartrate 50 mg Tablet 100 MG PO ×2 (07:32→17:42)
[2023-02-26] MEDS: ropinirole 0.25 mg Tablet 0.5 MG PO ×3 (07:33→21:43)
[2023-02-26] MEDS: potassium chloride ER 20 mEq Tablet 40 MEQ PO (07:33)
[2023-02-26] MEDS: magnesium sulfate premix 2 GM/50 ML PIGGYBACK IV (07:33)
[2023-02-26] MEDS: budesonide 0.5 mg/2 mL Neb INHALATION ×2 (08:30→20:12)
--- NOTE | 2023-02-26 08:30 | PC.CHAP ---
Pastoral Care Encounter/Spiritual Assessment Type of Contact [] Declined dumpster operator visit [] Patient/Family/Request visit [] Outpatient visit [] Follow-up visit [] Physician referral [] Code/Alert [x] Routine visit [] Staff referral [] Actively dying [] Patient sleeping [] Family support [] [] Out of room [] Palliative care [] [] Receiving care in room [] Pre-surgical visit [] Trauma [] Long length of stay [] ICU visit [] Other: Relational/Emotional Strength [x] Patient feels connected with others/family/visitors/staff [] Distress [] Loneliness/isolation [] Abandonment Spirituality of Patient [x] Person of Mayra [] Attends Adventism of their Mayra [x] Believes in Prayer [] Reads Bible or Yazdanism materials [] There are Spiritual issues to be addressed X Ray Developer Interventions [x] Prayer [x] Active listening [] Non-anxious presence [x] Spiritual/emotional support [] Crisis/trauma care [] Spiritual counseling [] Bereavement support [] Provided bereavement packet [] Provided Bible/devotional materials [] Provided toy/stuffed animal, coloring book to patient or family member [] Provided Communion [] Anointing/Tabor [] Salvation [x] Completed spiritual assessment [] Other: Impact on Illness or Injury [] Angry [] Fearful [] Anxious [] Often cries [] Exhaustion [] Unable to work [] Unable to attend pentecostalism [] Unable to walk/stand [] Unable to read [] Unable to drive [] Unable to eat/drink [] Unable to sleep [] Unable to be with family [] Patient intubated [] Other: Summary Time spent with patient 5 min
[2023-02-26] MEDS: ondansetron 2 mg/ML SDV 2 mL 4 MG IVP ×2 (10:50→21:44)
[2023-02-26 11:31] LABS: Glucose Point of Care 203 mg/dL (70-110)
[2023-02-26 12:49] LABS: Anion Gap 17.8 (5-19); Blood Urea Nitrogen 9 mg/dL (8-23); Calcium 8.6 mg/dL (8.5-10.5); Carbon Dioxide 28 mmol/L (22-29); Chloride 95 mmol/L (98-107); Glomerular Filtration Rate 62.1 mL/min (90-130); Glucose 209 mg/dL (65-115); Osmolality Calculated 289 mOsm/kg (285-295); Potassium 3.8 mmol/L (3.5-5.1); Sodium 137 mmol/L (136-145)
[2023-02-26] MEDS: potassium chloride ER 20 mEq Tablet PO (13:02)
[2023-02-26] MEDS: cefTRIAXone 1,000 MG in sodium chloride 0.9% (plus) 50 ML 100 MG IV (13:03)
[2023-02-26] MEDS: insulin lispro 100 unit/1 mL SUBCUT ×2 (13:03→17:43)
--- NOTE | 2023-02-26 16:08 | P.PN_ITS ---
Subjective Subjective: Patient was seen this morning, she does complain of fatigue, malaise, no fevers, has a cough, remains on Cardizem drip, at 12, Vitals/I&O/Wt Last Vital Signs Temp 97.9 F 02/26/23 08:00 Pulse 56 L 02/26/23 15:38 Resp 20 H 02/26/23 15:38 BP 134/71 02/26/23 15:38 Pulse Ox 96 02/26/23 15:38 O2 Del Method Nasal Cannula 02/26/23 15:38 O2 Flow Rate 4 02/26/23 08:32 02/26/23 02/26/23 02/26/23 06:59 14:59 22:59 Intake Total 74.833 / 1373.208 340.000 / 340.000 Output Total 250 / 250 Balance -175.167 / 1123.208 340.000 / 340.000 Weight last 48 hrs Weight 137.438 kg Physical Exam Const: COMMON NORMALS: no acute distress and patient oriented x3 Resp: COMMON NORMALS: normal respiratory effort, No retractions, No use of accessory muscles and clear to auscultation bilaterally AUSCULTATION: clear to auscultation bilaterally Cardio: COMMON NORMALS: S1 normal heart sound present and S2 normal heart sound present RATE: tachycardic RHYTHM: abnormal rhythm irregularly irre gular HEART SOUNDS: S1 normal heart sound present and S2 normal heart sound present GI: COMMON NORMALS: Normal to inspection, nondistended, normoactive bowel sounds present and non-tender Extremity: COMMON NORMALS: no pedal edema Neuro: COMMON NORMALS: patient oriented x3 Psych: COMMON NORMALS: mental status grossly normal Data 02/26/23 03:45 02/26/23 12:18 Micro: Microbiology 02/25/23 16:21 Urine Culture - Preliminary Urine,Clean Catch Gram Negative Rods A&P Assessment and plan (1) Atrial fibrillation with RVR: (2) Vomiting: (3) Dehydration: (4) Cough: (5) Type 2 diabetes mellitus: (6) CHF (congestive heart failure), NYHA class III: Qualifiers: Congestive heart failure type: diastolic Congestive heart failure chronicity: chronic Qualified Code(s): I50.32 - Chronic diastolic (congestive) heart failure (7) HTN (hypertension): (8) Hyperlipidemia: Qualifiers: Hyperlipidemia type: mixed hyperlipidemia Qualified Code(s): E78.2 - Mixed hyperlipidemia (9) Morbid obesity: (10) Pulmonary hypertension: (11) Sleep apnea: Qualifiers: Sleep apnea type: obstructive Qualified Code(s): G47.33 - Obstructive sleep apnea (adult) (pediatric) (12) Diabetes: Qualifiers: Diabetes mellitus type: type 2 Diabetes mellitus ferry terminal supervisor insulin use: without ferry terminal supervisor use Diabetes mellitus complication status: with circulatory complication Diabetes mellitus complication detail: with other circulatory complications Qualified Code(s): E11.59 - Type 2 diabetes mellitus with other circulatory complications (13) Viral URI with cough: (14) UTI (urinary tract infection): Plan Viral URI with cough -Flu negative, COVID-negative -Respiratory viral panel negative -DuoNeb, -budesonide ? Tesmicaela Perles UTI, follow urine cultures, so far gram-negative rods, Rocephin A-fib with RVR -Cardizem drip, wean off -Magnesium within normal limits, potassium within normal limits -Continue Xarelto -Continue metoprolol, digoxin, get digoxin level, continue Cardizem p.o. Type 2 diabetes mellitus, A1c, low-dose sliding scale Dehydration, gentle IV hydration 1. No hydronephrosis. 2. Central RIGHT renal pelvis calcification at 1.8 cm. 3. No mass. 4. Normally distended urinary bladder. No ureteral jets are noted at this time but there is no hydronephrosis to suggest an obstruction. Renal ultrasound Full code Xarelto for DVT prophylaxis Attestations Medical Necessity Statement*: Patient requires hospitalization, for A-fib with RVR, remains on Cardizem drip, UTI, requiring Rocephin, remains dehydrated IV fluids, requiring inpatient admission, greater than 2 midnights Diagnoses Atrial fibrillation with RVR I48.91 Vomiting R11.10 Dehydration E86.0 Cough R05.9 Type 2 diabetes mellitus E11.9 CHF (congestive heart failure), NYHA class III I50.32 Congestive heart failure type: diastolic Congestive heart failure chronicity: chronic HTN (hypertension) I10 Hyperlipidemia E78.2 Hyperlipidemia type: mixed hyperlipidemia Morbid obesity E66.01 Pulmonary hypertension I27.20 Sleep apnea G47.33 Sleep apnea type: obstructive Diabetes E11.59 Diabetes mellitus type: type 2 Diabetes mellitus ferry terminal supervisor insulin use: without ferry terminal supervisor use Diabetes mellitus complication status: with circulatory complication Diabetes mellitus complication detail: with other circulatory complications Viral URI with cough J06.9 UTI (urinary tract infection) N39.0
[2023-02-26 17:28] LABS: Glucose Point of Care 213 mg/dL (70-110)
[2023-02-26] MEDS: rivaroxaban 10 mg Tablet 20 MG PO (17:42)
[2023-02-26] MEDS: pantoprazole 40 mg SDV IVP (17:43)
[2023-02-26] MEDS: sodium chloride 0.9% 1,000 ML 50 ML IV (17:44)
[2023-02-26 20:59] LABS: Glucose Point of Care 185 mg/dL (70-110)
[2023-02-27] VITALS (24 sets, daily range): BP systolic 135–152; BP diastolic 72–85; PULSE 53–77; RESP 16–23; TEMP 36.6; O2SAT 90–97
[2023-02-27 05:03] LABS: Basophils # 0.1 10^3/uL (0.0-0.1); Basophils % 1.1 %; Eosinophils # 0.6 10^3/uL (0.0-0.8); Hematocrit 37.4 % (36-47); Lymphocytes # 1.8 10^3/uL (0.8-4.8); Lymphocytes % 24.5 %; Mean Corpuscular HGB Conc 30.2 g/dL (30-55); Mean Corpuscular Hemoglobin 25.1 pg (27-33); Mean Corpuscular Volume 83.1 fl (85-98); Mean Platelet Volume 9.6 fL (7.4-10.4); Monocytes # 0.9 10^3/uL (0.2-0.9); Monocytes % 11.3 %; Neutrophils # 4.13 10^3/uL (1.8-7.7); Nucleated Red Blood Cells % 0 %; Platelet Count 419 10^3/cmm (157-399); Red Cell Distribution Width 16.1 % (12.1-15.1); White Blood Count 7.51 10^3/uL (3.29-11.43)
[2023-02-27 05:23] LABS: Anion Gap 15.9 (5-19); Blood Urea Nitrogen 10 mg/dL (8-23); Carbon Dioxide 29 mmol/L (22-29); Chloride 97 mmol/L (98-107); Glucose 161 mg/dL (65-115); Osmolality Calculated 289 mOsm/kg (285-295); Potassium 3.9 mmol/L (3.5-5.1); Sodium 138 mmol/L (136-145)
[2023-02-27 06:32] LABS: Glucose Point of Care 145 mg/dL (70-110)
[2023-02-27] MEDS: isosorbide mononitrate ER 30 mg Tablet PO (06:32)
[2023-02-27] MEDS: pantoprazole DR 40 mg Tablet PO (06:32)
[2023-02-27] MEDS: aspirin 81 mg EC Tablet PO (06:32)
[2023-02-27] MEDS: dilTIAZem ER (24HR) 120 mg Capsule PO (06:32)
--- NOTE | 2023-02-27 07:36 | PC.NURSE ---
digoxin was held for [address] order.
[2023-02-27] MEDS: metoprolol tartrate 50 mg Tablet 100 MG PO (09:05)
[2023-02-27] MEDS: cefTRIAXone 1,000 MG in sodium chloride 0.9% (plus) 50 ML 100 MG IV (09:05)
[2023-02-27] MEDS: duloxetine 60 mg Capsule PO (09:06)
[2023-02-27] MEDS: ropinirole 0.25 mg Tablet 0.5 MG PO (09:06)
[2023-02-27] MEDS: gabapentin 300 mg Capsule 600 MG PO (09:06)
[2023-02-27] MEDS: insulin lispro 100 unit/1 mL SUBCUT ×2 (09:07→12:25)
--- NOTE | 2023-02-27 10:46 | PM.DCS ---
Discharge Providers Date of Admission: 02/25/23 16:07 Date of Discharge: February 27, 2023 Attending Provider at Admission: Jaspreet Aviles MD Attending Provider at Discharge: Jaspreet Aviles MD Primary Care Provider: Yassine Mason DO Diagnoses at Discharge Discharge Diagnosis (1) Atrial fibrillation with RVR: Status: Acute (2) Vomiting: Status: Acute (3) Dehydration: Status: Acute (4) Cough: Status: Acute (5) Type 2 diabetes mellitus: Status: Acute (6) CHF (congestive heart failure), NYHA class III: Status: Acute Qualifiers: Congestive heart failure type: diastolic Congestive heart failure chronicity: chronic Qualified Code(s): I50.32 - Chronic diastolic (congestive) heart failure (7) HTN (hypertension): Status: Acute (8) Hyperlipidemia: Status: Acute Qualifiers: Hyperlipidemia type: mixed hyperlipidemia Qualified Code(s): E78.2 - Mixed hyperlipidemia (9) Morbid obesity: Status: Acute (10) Pulmonary hypertension: Status: Acute (11) Sleep apnea: Status: Acute Qualifiers: Sleep apnea type: obstructive Qualified Code(s): G47.33 - Obstructive sleep apnea (adult) (pediatric) (12) Diabetes: Status: Acute Qualifiers: Diabetes mellitus type: type 2 Diabetes mellitus long term care phlebotomist insulin use: without mcc use Diabetes mellitus complication status: with circulatory complication Diabetes mellitus complication detail: with other circulatory complications Qualified Code(s): E11.59 - Type 2 diabetes mellitus with other circulatory complications (13) Viral URI with cough: Status: Acute (14) UTI (urinary tract infection): Status: Acute Reason for Visit Reason for Visit: NV/lightheaded/weakness Hospital Course Hospital Course Macarena Guardado is a 67 year old female with with a past medical history of morbid obesity, atrial fibrillation on Xarelto, type 2 diabetes mellitus on metformin, hypertension, hyperlipidemia, who presents to [facility] due to cough, congestion, poor oral intake, nausea.? Patient tells me that her roommate tested positive for parainfluenza virus, she was hospitalized for 4 days due to dehydration, she was having symptoms of fatigue, malaise, fevers, cough.? Patient tells me that she was exposed, so for the last week, she has also had fatigue, malaise, poor appetite, cough, congestion, she has not taken her oral medications for the last few days due to poor oral intake, nausea, denies any abdominal pain, no diarrhea, no chest pain, no palpitations, no hemoptysis Patient was admitted to [facility] for viral URI with cough, dehydration, UTI, A-fib with RVR, required IV hydration, required Cardizem drip, IV antibiotics, clinically monitored, weaned off Cardizem drip, to her p.o. medications, received antibiotics for her UTI, so far cultures show gram-negative rods. Patient clinically improved, remained afebrile, ambulating without significant symptomatology, discharged on cefdinir for 5 days for UTI. Patient advised to hydrate well, Tylenol for fevers, follow-up with missing persons investigator in 1 week, continue atrial fibrillation medications, continue Xarelto Physical Exam Const: COMMON NORMALS: no acute distress and patient oriented x3 Resp: COMMON NORMALS: normal respiratory effort, No retractions, No use of accessory muscles and clear to auscultation bilaterally AUSCULTATION: clear to auscultation bilaterally Cardio: COMMON NORMALS: regular rate, regular rhythm, S1 normal heart sound present and S2 normal heart sound present RATE: regular rate RHYTHM: regular rhythm HEART SOUNDS: S1 normal heart sound present and S2 normal heart sound present GI: COMMON NORMALS: Normal to inspection, nondistended, normoactive bowel sounds present and non-tender Extremity: COMMON NORMALS: no pedal edema Neuro: COMMON NORMALS: patient oriented x3 Psych: COMMON NORMALS: mental status grossly normal Discharge Data Studies Completed and Pending Completed Studies During Hospitalization Category Date Time Status CXRP [XR chest 1V portable [id number]] Stat Exams 02/25/23 13:48 Completed US renal BI* [id number] Routine Ultrasound 02/25/23 18:54 Completed Pending at discharge Category Date Time Status Basic Metabolic Panel AM LABS Lab 02/28/23 04:00 Ordered Basic Metabolic Panel AM LABS Lab 03/01/23 04:00 Ordered Complete Blood Count w/Auto AM LABS Lab 02/28/23 04:00 Ordered Complete Blood Count w/Auto AM LABS Lab 03/01/23 04:00 Ordered Urine Culture Stat Lab 02/25/23 16:21 Results Laboratory Results WBC 7.51 10^3/uL (3.29-11.43) 02/27/23 04:40 RBC 4.50 10^6/uL (3.85-5.65) 02/27/23 04:40 Hgb 11.30 g/dL (11.27-16.99) 02/27/23 04:40 Hct 37.4 % (36-47) 02/27/23 04:40 MCV 83.1 fl (85-98) L 02/27/23 04:40 MCH 25.1 pg (27-33) L 02/27/23 04:40 MCHC 30.2 g/dL (30-55) 02/27/23 04:40 RDW 16.1 % (12.1-15.1) H 02/27/23 04:40 Plt Count 419 10^3/cmm (157-399) H 02/27/23 04:40 MPV 9.6 fL (7.4-10.4) 02/27/23 04:40 Neut % (Auto) 55.0 % 02/27/23 04:40 Lymph % (Auto) 24.5 % 02/27/23 04:40 [place] % (Auto) 11.3 % 02/27/23 04:40 Eos % (Auto) 8.0 % 02/27/23 04:40 Baso % (Auto) 1.1 % 02/27/23 04:40 Neut # (Auto) 4.13 10^3/uL (1.8-7.7) 02/27/23 04:40 Lymph # (Auto) 1.8 10^3/uL (0.8-4.8) 02/27/23 04:40 [place] # (Auto) 0.9 10^3/uL (0.2-0.9) 02/27/23 04:40 Eos # (Auto) 0.6 10^3/uL (0.0-0.8) 02/27/23 04:40 Baso # (Auto) 0.1 10^3/uL (0.0-0.1) 02/27/23 04:40 Nucleated RBC % (auto) 0 % 02/27/23 04:40 Nucleated RBCs # 0.0 /100WBC 02/27/23 04:40 Sodium 138 mmol/L (136-145) 02/27/23 04:40 Potassium 3.9 mmol/L (3.5-5.1) 02/27/23 04:40 Chloride 97 mmol/L (98-107) L 02/27/23 04:40 Carbon Dioxide 29 mmol/L (22-29) 02/27/23 04:40 Anion Gap 15.9 (5-19) 02/27/23 04:40 BUN 10 mg/dL (8-23) 02/27/23 04:40 Creatinine 0.7 mg/dL (0.5-0.9) 02/27/23 04:40 GFR Calculation 83.0 mL/min (90-130) L 02/27/23 04:40 Glucose 161 mg/dL (65-115) H 02/27/23 04:40 POC Glucose 145 mg/dL (70-110) H 02/27/23 06:17 Estimat Average Glucose 157 02/25/23 12:28 Hemoglobin A1c 7.1 % (4.0-6.0) H 02/25/23 12:28 Calculated Osmolality 289 mOsm/kg (285-295) 02/27/23 04:40 Calcium 9.0 mg/dL (8.5-10.5) 02/27/23 04:40 Phosphorus 3.8 mg/dL (2.5-4.5) 02/26/23 03:45 Magnesium 2.0 mg/dL (1.7-2.3) 02/26/23 12:18 Total Bilirubin 0.6 mg/dL (0.15-1.2) 02/25/23 12:28 AST 22 U/L (0-32) 02/25/23 12:28 ALT 16 U/L (0-33) 02/25/23 12:28 Alkaline Phosphatase 80 U/L (35-105) 02/25/23 12:28 NT-Pro-B Natriuret Pep 179 pg/mL (0-125) H 02/26/23 03:45 Total Protein 7.0 g/dL (6.6-8.7) 02/25/23 12:28 Albumin 4.1 g/dL (3.5-5.2) 02/25/23 12:28 Globulin 2.9 g/dL (1.3-4.6) 02/25/23 12:28 Triglycerides 169 mg/dL (0-150) H 02/26/23 03:45 Cholesterol 179 mg/dL (0-200) 02/26/23 03:45 LDL Cholesterol, Calc 116 mg/dL (50-129) 02/26/23 03:45 HDL Cholesterol 29 mg/dL (60-100) L 02/26/23 03:45 LDL/HDL Ratio 4.00 RATIO (0.00-3.22) H 02/26/23 03:45 Cholesterol/HDL Ratio 6.17 mg/dL (0.0-4.40) H 02/26/23 03:45 Lipase 15 U/L (13-60) 02/25/23 12:28 TSH 2.82 uIU/mL (0.27-4.20) 02/25/23 12:28 Urine Color Yellow (Yellow) 02/25/23 16:21 Urine Appearance Hazy (CLEAR) A 02/25/23 16:21 Urine pH 5 (5-7) 02/25/23 16:21 Ur Specific [place] 1.025 (1.005-1.030) 02/25/23 16:21 Urine Protein 1+ (Negative) H 02/25/23 16:21 Urine Glucose (UA) Norm (Normal) 02/25/23 16:21 Urine Ketones 1+ (Negative) H 02/25/23 16:21 Urine Blood Trace (Negative) H 02/25/23 16:21 Urine Nitrate Negative (Negative) 02/25/23 16:21 Urine Bilirubin 1+ (Negative) H 02/25/23 16:21 Urine Urobilinogen Norm mg/dL (Negative) 02/25/23 16:21 Ur Leukocyte Esterase 2+ (Negative) H 02/25/23 16:21 Urine RBC 10-15 /hpf (0-2) H 02/25/23 16:21 Urine WBC 80-100 /hpf (0-5) H 02/25/23 16:21 Ur Squamous Epith Cells 5-10 /hpf (0-5) H 02/25/23 16:21 Calcium Oxalate Crystal 55-80 /hpf H 02/25/23 16:21 Amorphous Sediment Not Reportable 02/25/23 16:21 Urine Bacteria 4+ /hpf (NONE) H 02/25/23 16:21 Urine Mucus 2+ /hpf 02/25/23 16:21 Nasal Influ A H1 2009 PCR Not detected (NOT DETECT) 02/25/23 20:23 Digoxin 1.1 ng/mL (0.6-1.2) 02/25/23 12:28 Adenovirus (PCR) Not detected (NOT DETECT) 02/25/23 20: C. pneumoniae DNA (PCR) Not detected (NOT DETECT) 02/25/23 20: Coronavirus 229E (PCR) Not detected (NOT DETECT) 02/25/23 20: Human Metapneumovir PCR Not detected (NOT DETECT) 02/25/23 20: Influenza A (H1) PCR Not detected (NOT DETECT) 02/25/23 20: Influenza A (H3) PCR Not detected (NOT DETECT) 02/25/23 20: Influenza Type A Ag negative (Negative) 02/25/23 15:00 Influenza Type A (PCR) Not detected (NOT DETECT) 02/25/23 20: Influenza Type B Ag negative (Negative) 02/25/23 15:00 Influenza Type B (PCR) Not detected (NOT DETECT) 02/25/23 20: M. pneumoniae (PCR) Not detected (NOT DETECT) 02/25/23 20: Parainfluenza 1 (PCR) Not detected (NOT DETECT) 02/25/23 20: Parainfluenza 2 (PCR) Not detected (NOT DETECT) 02/25/23 20: Parainfluenza 3 (PCR) Not detected (NOT DETECT) 02/25/23 20: Parainfluenza 4 (PCR) Not detected (NOT DETECT) 02/25/23 20:23 RSV Type A (PCR) Not detected (NOT DETECT) 02/25/23 20: RSV Type B (PCR) Not detected (NOT DETECT) 02/25/23 20:23 Entero/Rhino (PCR) Not detected (NOT DETECT) 02/25/23 20: SARS-CoV-2 (PCR) Not detected (NOT DETECT) 02/25/23 20: SARS-CoV-2 Ag (Rapid) negative (Negative) 02/25/23 15:00 Vitals Last Vital Signs Temp 97.8 F 02/27/23 03:29 Pulse 69 02/27/23 08:00 Resp 18 02/27/23 08:00 BP 148/72 02/27/23 08:00 Pulse Ox 94 02/27/23 07:51 O2 Del Method Nasal Cannula 02/27/23 07:51 O2 Flow Rate 4 02/27/23 07:51 Discharge Plan Discharge Patient Disposition: Home Condition: Stable Prescriptions: New benzonatate 100 mg Capsule 100 mg PO TID PRN (Reason: Cough) 7 Days Qty: 21 0RF cefdinir 300 mg capsule 300 mg PO BID 5 Days Qty: 10 0RF Continued (DME) blood-glucose meter [Accu-Chek Radha Plus Meter] Misc See Rx Instructions .ROUTE .MEDSUPPLY Qty: 1 0RF Rx Instructions: As directed (DME) Accu-Chek Radha Plus test strp Strip See Rx Instructions .ROUTE .MEDSUPPLY Qty: 200 3RF Rx Instructions: As directed twice a day albuterol sulfate 2.5 mg /3 mL (0.083 %) solution for nebulization 2.5 mg INHALATION Q4H PRN (Reason: Shortness Of Breath) Qty: 15 11RF fluticasone propionate [Allergy Relief (fluticasone)] 50 mcg/actuation spray,suspension 2 spray intranasal DAILY PRN (Reason: allergy symptoms) Qty: 15.8 11RF Rx Instructions: administer into each nostril gabapentin 300 mg capsule 600 mg PO TID Qty: 180 3RF trazodone 50 mg tablet 50 - 100 mg PO BEDTIME PRN (Reason: Sleep) Dose Instruction: TAKE 1 TO 2 TABLETS BY MOUTH ONCE DAILY AT BEDTIME Mounjaro 15 mg/0.5 mL pen injector 15 mg SUBCUT Q7D Qty: 2 0RF albuterol sulfate [ProAir HFA] 90 mcg/actuation HFA aerosol inhaler 2 inh inhalation Q6H PRN (Reason: shortness of breath or wheezing) Qty: 8.5 5RF metoprolol tartrate 100 mg tablet 100 mg PO BID Qty: 180 3RF (DME) cpap See Rx Instructions .Route .MEDSUPPLY Qty: 1 0RF Rx Instructions: As directed nitroglycerin 0.4 mg tablet, sublingual 0.4 mg SUBLINGUAL Q5M PRN (Reason: chest pain) Qty: 25 2RF Rx Instructions: Call ambulance if pain is not resolved with 2. metformin 1,000 mg tablet 1,000 mg PO BID Qty: 180 3RF duloxetine [Cymbalta] 60 mg capsule,delayed release(DR/EC) 60 mg PO BID Qty: 60 11RF potassium chloride 10 mEq capsule, extended release 10 meq PO TID Qty: 90 3RF Rx Instructions: MUST have follow-up for further refills diphenoxylate-atropine 2.5-0.025 mg tablet 1 tab PO QID PRN (Reason: diarrhea) Qty: 20 0RF ropinirole 0.5 mg tablet 0.5 mg PO TID omeprazole 20 mg capsule,delayed release(DR/EC) 20 mg PO QAM diltiazem HCl 120 mg capsule,extended release 24hr 120 mg PO QAM isosorbide mononitrate 30 mg tablet extended release 24 hr 30 mg PO QAM digoxin 125 mcg (0.125 mg) tablet 125 mcg PO QAM Breztri Aerosphere 160-9-4.8 mcg/actuation HFA aerosol inhaler 2 inh INHALATION BID PRN (Reason: unknown) cyclobenzaprine 10 mg tablet 30 mg PO BEDTIME PRN (Reason: muscle spasm) aspirin [Adult Aspirin Regimen] 81 mg tablet,delayed release (DR/EC) 81 mg PO QAM epinephrine 0.3 mg/0.3 mL auto-injector 0.3 mg IM PRN PRN (Reason: Allergic Reaction) Xarelto 20 mg tablet 20 mg PO QPM Rinvoq 15 mg tablet extended release 24 hr 15 mg PO DAILY 28-800 mg-mcg Tablet 1 tab PO QAM nystatin 100,000 unit/gram powder 1 applic topical TID Changed furosemide 40 mg tablet 40 mg PO BID Qty: 60 0RF Dose Instruction: TAKE ONE TABLET BY MOUTH TWICE A DAY FOR WEIGHT GAIN Discharge Orders: Discharge Order (Routine); Ordered 02/27/23 Ordered By: Jaspreet Aviles Referrals: Yassine Mason DO [Primary Care Provider] - 03/01/23 11:20 am Discharge Diet: Cardiac Discharge Activity: Resume usual activity Patient Instructions: Opioid Safety Activity Restrictions/Additional Instructions: - Please follow-up with missing persons investigator in 1 week -Please follow-up with primary care provider in 1 week -Hydrate -Monitor for fevers -Take antibiotics for UTI Discharge Attestations Time Spent in Discharge Care*: greater than 30 min Quality Metrics Clinical Quality Measures [ No reported AMI, CVA or VTE this stay] Coding Level of Care Code 29099 Total time (in minutes) for Discharge: 45 Diagnoses Atrial fibrillation with RVR I48.91 Vomiting R11.10 Dehydration E86.0 Cough R05.9 Type 2 diabetes mellitus E11.9 CHF (congestive heart failure), NYHA class III I50.32 Congestive heart failure type: diastolic Congestive heart failure chronicity: chronic HTN (hypertension) I10 Hyperlipidemia E78.2 Hyperlipidemia type: mixed hyperlipidemia Morbid obesity E66.01 Pulmonary hypertension I27.20 Sleep apnea G47.33 Sleep apnea type: obstructive Diabetes E11.59 Diabetes mellitus type: type 2 Diabetes mellitus mcc insulin use: without long term care phlebotomist use Diabetes mellitus complication status: with circulatory complication Diabetes mellitus complication detail: with other circulatory complications Viral URI with cough J06.9 UTI (urinary tract infection) N39.0
--- NOTE | 2023-02-27 10:56 | PC.SOCIAL ---
Pg 2 IMM Explained to pt Pg 2 IMM. No questions voiced. Provided pt a copy. Initialed, dated, & timed a copy & placed in chart.
[2023-02-27 11:41] LABS: Glucose Point of Care 177 mg/dL (70-110)
--- NOTE | 2023-02-27 13:53 | PC.NURSE ---
Discharge Note Patient discharged to [home] via [w/c to POV] accompanied by [friend]. Discharge instructions reviewed with patient and/or logistics service representative. Mobile pharmacy medications and/or prescriptions provided. Belongings/home medications returned.
== END 2023-02-27 13:10 | disposition home or self-care (01) | DRG 690 ==
LOC: ER 13:55 → CSU 16:26
PROVIDERS: Admitting Provider Family Medicine; Emergency Provider Emergency Medicine; PCP Family Medicine; Visit Provider Family Medicine
DX: N39.0 Urinary tract infection, site not specified (principal); Z68.43 Body mass index [BMI] 50.0-59.9, adult; I50.32 Chronic diastolic (congestive) heart failure; I48.91 Unspecified atrial fibrillation; E66.01 Morbid (severe) obesity due to excess calories; E11.42 Type 2 diabetes mellitus with diabetic polyneuropathy; Z79.01 Long term (current) use of anticoagulants; Z79.84 Long term (current) use of oral hypoglycemic drugs; I11.0 Hypertensive heart disease with heart failure; E78.2 Mixed hyperlipidemia; E86.0 Dehydration; J06.9 Acute upper respiratory infection, unspecified; Z20.822 Contact with and (suspected) exposure to COVID-19; Z79.891 Long term (current) use of opiate analgesic; Z79.82 Long term (current) use of aspirin; I27.20 Pulmonary hypertension, unspecified; G47.33 Obstructive sleep apnea (adult) (pediatric); I25.10 Atherosclerotic heart disease of native coronary artery without angina pectoris; K21.9 Gastro-esophageal reflux disease without esophagitis; Z85.828 Personal history of other malignant neoplasm of skin; Z86.14 Personal history of Methicillin resistant Staphylococcus aureus infection; Z86.73 Personal history of transient ischemic attack (TIA), and cerebral infarction without residual deficits; M06.9 Rheumatoid arthritis, unspecified; G25.81 Restless legs syndrome; F43.12 Post-traumatic stress disorder, chronic
CPT/HCPCS: 36415; 36416; 71045; 76770; 80048; 80053; 80061; 80162; 81001; 82962; 83036; 83690; 83735; 83880; 84100; 84443; 85025; 87077; 87086; 87186; 87426; 87486; 87581; 87633; 87804; 90471; 90732; 93005; 94640; 94664; 96365; 96366; 96372; 96375; 96376; 97161; 97165; 97530; 97535; 99285; C9113; J0696; J1815; J2405; J3475; J3490; J7030; J7626

== ENCOUNTER → 2023-03-06 09:40 | Outpatient (BNVA) | payer MEDICARE, SELFPAY | PROVIDERS: PCP Family Medicine; Visit Provider Internal Medicine | DX: E11.59 Type 2 diabetes mellitus with other circulatory complications (principal); I50.9 Heart failure, unspecified; E78.2 Mixed hyperlipidemia; E11.40 Type 2 diabetes mellitus with diabetic neuropathy, unspecified; Z79.84 Long term (current) use of oral hypoglycemic drugs | CPT/HCPCS: 99214 ==

== ENCOUNTER → 2023-04-15 13:15 | Outpatient (BNVA) | payer MEDICARE, SELFPAY | PROVIDERS: PCP Family Medicine; Visit Provider Family Medicine | DX: J02.9 Acute pharyngitis, unspecified (principal); R05.9 Cough, unspecified; J40 Bronchitis, not specified as acute or chronic | CPT/HCPCS: 87071; 87426; 87880 ==

== ENCOUNTER → 2023-06-24 09:05 | Outpatient (BNVA) | payer MEDICARE, SELFPAY | PROVIDERS: PCP Family Medicine; Visit Provider Internal Medicine | DX: E11.59 Type 2 diabetes mellitus with other circulatory complications (principal); I50.9 Heart failure, unspecified | CPT/HCPCS: 80053; 80061; 82043; 83036 ==

== ENCOUNTER → 2023-07-01 10:49 | Outpatient (BNVA) | payer MEDICARE, SELFPAY | PROVIDERS: PCP Family Medicine; Visit Provider Internal Medicine | DX: E11.59 Type 2 diabetes mellitus with other circulatory complications (principal); I50.9 Heart failure, unspecified; E78.2 Mixed hyperlipidemia; E55.9 Vitamin D deficiency, unspecified; E11.42 Type 2 diabetes mellitus with diabetic polyneuropathy; Z68.44 Body mass index [BMI] 60.0-69.9, adult | CPT/HCPCS: 99214 ==

== ENCOUNTER → 2023-12-18 08:15 | Outpatient (BNVA) | payer MEDICARE, SELFPAY | PROVIDERS: PCP Family Medicine; Visit Provider Nurse Practitioner Family | DX: N39.0 Urinary tract infection, site not specified (principal) | CPT/HCPCS: 81000 ==

== ENCOUNTER → 2023-12-30 11:00 | Outpatient (BNVA) | payer MEDICARE, SELFPAY | PROVIDERS: PCP Family Medicine; Visit Provider Internal Medicine | DX: I50.9 Heart failure, unspecified (principal); Z68.44 Body mass index [BMI] 60.0-69.9, adult; E11.59 Type 2 diabetes mellitus with other circulatory complications; E78.2 Mixed hyperlipidemia; E55.9 Vitamin D deficiency, unspecified; R29.898 Other symptoms and signs involving the musculoskeletal system; E11.42 Type 2 diabetes mellitus with diabetic polyneuropathy; Z79.84 Long term (current) use of oral hypoglycemic drugs; Z79.85 Long-term (current) use of injectable non-insulin antidiabetic drugs | CPT/HCPCS: 36415; 80053; 80061; 82044; 82306; 83036; 99214 ==

== ENCOUNTER → 2024-01-13 09:37 | Outpatient (BNVA) | payer MEDICARE, SELFPAY | PROVIDERS: PCP Family Medicine; Visit Provider Nurse Practitioner Family | DX: L57.0 Actinic keratosis (principal); L91.8 Other hypertrophic disorders of the skin; L81.4 Other melanin hyperpigmentation; L57.8 Other skin changes due to chronic exposure to nonionizing radiation; L82.1 Other seborrheic keratosis; D18.01 Hemangioma of skin and subcutaneous tissue; Z85.828 Personal history of other malignant neoplasm of skin | CPT/HCPCS: 17000; 17110; 99203 ==

== ENCOUNTER → 2024-02-13 10:00 | Outpatient (BNVA) | payer MEDICARE, SELFPAY | PROVIDERS: PCP Family Medicine; Visit Provider Psychiatry & Neurology Neurology | DX: G62.9 Polyneuropathy, unspecified (principal); E55.9 Vitamin D deficiency, unspecified; I10 Essential (primary) hypertension; Z68.44 Body mass index [BMI] 60.0-69.9, adult; M79.603 Pain in arm, unspecified; M79.606 Pain in leg, unspecified; R29.898 Other symptoms and signs involving the musculoskeletal system; M62.549 Muscle wasting and atrophy, not elsewhere classified, unspecified hand; R68.89 Other general symptoms and signs | CPT/HCPCS: 36415; 82306; 82607; 82746; 83090; 83735; 83921; 84425; 84439; 84443; 84481; 84591; 85025; 86592; 86617; 99203; 99204 ==

== ENCOUNTER 2024-04-01 09:13 | Oncology outpatient (recurring) (ONCR) | payer MEDICARE, SELFPAY ==
[2024-03-25 16:11] VITALS: BP 140/68; PULSE 40; RESP 18; TEMP 36.2; O2SAT 97
[2024-03-25 16:26] VITALS: BP 142/68; PULSE 46; RESP 18; TEMP 36.4; O2SAT 97
[2024-03-25 16:33] LABS: Basophils % 0.3 %; Eosinophils # 0.1 10^3/uL (0.0-0.8); Eosinophils % 1.7 %; Hematocrit 37.7 % (36-47); Lymphocytes # 2.8 10^3/uL (0.8-4.8); Lymphocytes % 39.7 %; Mean Corpuscular HGB Conc 31.6 g/dL (30-55); Mean Corpuscular Volume 82.5 fl (85-98); Mean Platelet Volume 9.9 fL (7.4-10.4); Monocytes # 0.6 10^3/uL (0.2-0.9); Monocytes % 8.3 %; Neutrophils # 3.55 10^3/uL (1.8-7.7); Neutrophils % 49.9 %; Nucleated Red Blood Cells % 0 %; Platelet Count 319 10^3/cmm (157-399); Red Blood Count 4.57 10^6/uL (3.85-5.65); Red Cell Distribution Width 15.2 % (12.1-15.1); White Blood Count 7.11 10^3/uL (3.29-11.43)
[2024-03-25 16:34] LABS: Reticulocyte % 1.2 % (0.5-2.0)
[2024-03-25 16:59] LABS: Alanine Aminotransferase 9 U/L (0-33); Albumin Level 4.1 g/dL (3.5-5.2); Alkaline Phosphatase 106 U/L (35-105); Anion Gap 13.2 (5-19); Aspartate Amino Transferase 14 U/L (0-32); Blood Urea Nitrogen 14 mg/dL (8-23); Calcium 9.6 mg/dL (8.5-10.5); Carbon Dioxide 29 mmol/L (22-29); Chloride 102 mmol/L (98-107); Creatinine Clr Calc Pharmacy 77.9467; Ferritin 18 ng/mL (15-150); Glomerular Filtration Rate 70.9 mL/min (90-130); Glucose 120 mg/dL (65-115); Iron 38 ug/dL (37-145); Lactate Dehydrogenase 179 U/L (135-214); Osmolality Calculated 292 mOsm/kg (285-295); Percent Saturation 10.8 % (20-50); Potassium 4.2 mmol/L (3.5-5.1); Sodium 140 mmol/L (136-145); Total Bilirubin 0.3 mg/dL (0.15-1.2); Total Iron Binding Capacity 349 mcg/dl; Total Protein 7.1 g/dL (6.6-8.7); Unsaturated Iron Binding 311 ug/dL (112-347)
--- NOTE | 2024-03-25 17:00 | XRR_ITS ---
PROCEDURE INFORMATION: Exam: XR Chest Exam date and time: 03/25/2024 5:03 PM Age: 68 years old Clinical indication: Shortness of breath; Additional info: Anemai TECHNIQUE: Imaging protocol: Radiologic exam of the chest. Views: 2 views. COMPARISON: CR XR chest 1V portable [id number] 02/25/2023 1:54 PM FINDINGS: Lungs: Unremarkable. No consolidation. Pleural spaces: Unremarkable. No pleural effusion. No pneumothorax. Heart/Mediastinum: Unremarkable. No cardiomegaly. Bones/joints: Unremarkable. XR/XR chest 2V* [id number] IMPRESSION: No acute findings.
== END 2024-04-04 23:59 | disposition home or self-care (01) ==
PROVIDERS: PCP Family Medicine; Visit Provider Internal Medicine
DX: D50.9 Iron deficiency anemia, unspecified (principal); I11.0 Hypertensive heart disease with heart failure; I50.32 Chronic diastolic (congestive) heart failure; E11.42 Type 2 diabetes mellitus with diabetic polyneuropathy; Z79.85 Long-term (current) use of injectable non-insulin antidiabetic drugs; Z79.899 Other long term (current) drug therapy
CPT/HCPCS: 36415; 71046; 80053; 82728; 83010; 83540; 83550; 83615; 85025; 85045; 99204; 99213

== ENCOUNTER 2024-04-16 10:30 | Oncology outpatient (recurring) (ONCR) | payer MEDICARE, SELFPAY ==
[2024-04-14 08:52] VITALS: BP 117/56; PULSE 45; RESP 18; TEMP 36.4; O2SAT 99
[2024-04-14] MEDS: sodium chloride 0.9% 500 ML 75 ML IV (09:08)
[2024-04-14] MEDS: acetaminophen 325 mg Tablet 650 MG PO (09:09)
[2024-04-14] MEDS: diphenhydrAMINE 50 mg/mL SDV 1mL 25 MG IVP (09:09)
[2024-04-14] MEDS: iron dextran 25 MG in SYRINGE 1 EACH 30 MG IVP (09:10)
[2024-04-14] MEDS: iron dextran 1,000 MG in sodium chloride 0.9% 1,000 ML 250.75 MG IV (10:31)
[2024-04-14 15:15] VITALS: BP 117/78; PULSE 64; RESP 18; TEMP 36.6; O2SAT 98
--- NOTE | 2024-04-16 10:30 | US_ITS ---
WS: [id number] Complete ABDOMINAL ULTRASOUND HISTORY: anemia COMPARISON: None available. Liver: 16.3 cm in length. Normal size liver with coarse echotexture. Surface of the liver is very sli ghtly irregular suggesting cirrhosis. No mass. No intrahepatic duct dilatation. Portal Vein: Normal hepatopetal flow with monophasic waveform. Gallbladder: Normally distended gallbladder with no stones or wall thickening. CBD: 0.6 cm Pancreas: Normal size and echogenicity. Right kidney: 11.0 cm x 5.2 x 5.0 cm. Cortex:1.0 cm. Normal size and echogenicity. No hydronephrosis or mass. Left kidney: 12.1 cm x 4.8 cm x 4.7 cm. Cortex: 1.2 cm. Normal size and echogenicity. No hydronephrosis or mass. Spleen: 11.5 cm. Normal size and echogenicity. Aorta and IVC: Unremarkable abdominal aorta and IVC. US/US abdomen complete* [id number] Impression: 1. No renal obstruction. 2. No intrahepatic duct dilatation. 3. Surface of the liver is slightly irregular. Consider early changes of cirrh osis. 4. Normal gallbladder.
== END 2024-05-05 23:59 | disposition home or self-care (01) ==
LOC: RAD 04-17 → ONCMED 04-17 08:51
PROVIDERS: PCP Family Medicine; Visit Provider Internal Medicine
DX: D64.9 Anemia, unspecified (principal); R93.2 Abnormal findings on diagnostic imaging of liver and biliary tract; Z79.899 Other long term (current) drug therapy; Z53.9 Procedure and treatment not carried out, unspecified reason
CPT/HCPCS: 76700; 96365; 96366; J1200; J1750; J7030; J7040

== ENCOUNTER 2024-06-03 08:30 | Oncology outpatient (recurring) (ONCR) | payer MEDICARE, SELFPAY ==
[2024-06-03] MEDS: sodium chloride 0.9% 500 ML 75 ML IV (08:54)
[2024-06-03] MEDS: acetaminophen 325 mg Tablet 650 MG PO (08:58)
[2024-06-03] MEDS: diphenhydrAMINE 50 mg/mL SDV 1mL 25 MG IVP (08:59)
[2024-06-03 09:00] VITALS: BP 96/54; PULSE 46; RESP 17; TEMP 36.3; O2SAT 96
[2024-06-03] MEDS: iron dextran 25 MG in SYRINGE 1 EACH 30 MG IVP (09:21)
[2024-06-03] MEDS: iron dextran 1,000 MG in sodium chloride 0.9% 1,000 ML 200 MG IV (10:22)
[2024-06-03 14:51] VITALS: BP 118/67; PULSE 56; TEMP 36.2; O2SAT 98
== END 2024-06-05 23:59 | disposition home or self-care (01) ==
PROVIDERS: PCP Family Medicine; Visit Provider Internal Medicine
DX: Z53.9 Procedure and treatment not carried out, unspecified reason; D50.9 Iron deficiency anemia, unspecified; Z79.899 Other long term (current) drug therapy
CPT/HCPCS: 96365; 96366; 96375; 99213; J1200; J1750; J7030; J7040

== ENCOUNTER → 2024-06-15 13:01 | Outpatient (BNVA) | payer MEDICARE, SELFPAY | PROVIDERS: PCP Family Medicine; Visit Provider Nurse Practitioner Family | DX: R30.0 Dysuria (principal) | CPT/HCPCS: 81000 ==

== ENCOUNTER → 2024-07-06 14:04 | Outpatient (BNVA) | payer MEDICARE, SELFPAY | PROVIDERS: PCP Family Medicine; Visit Provider Family Medicine | DX: N39.0 Urinary tract infection, site not specified (principal) | CPT/HCPCS: 81000 ==

== ENCOUNTER → 2024-07-16 09:31 | Outpatient (BNVA) | payer MEDICARE, SELFPAY | PROVIDERS: PCP Family Medicine; Visit Provider Psychiatry & Neurology Neurology | DX: R29.898 Other symptoms and signs involving the musculoskeletal system (principal); M62.549 Muscle wasting and atrophy, not elsewhere classified, unspecified hand; G62.9 Polyneuropathy, unspecified; R68.89 Other general symptoms and signs; R29.6 Repeated falls; M79.673 Pain in unspecified foot; M25.511 Pain in right shoulder; M79.601 Pain in right arm; M79.602 Pain in left arm; M79.604 Pain in right leg; M79.605 Pain in left leg | CPT/HCPCS: 95913 ==

== ENCOUNTER → 2024-09-08 10:25 | Outpatient (BNVA) | payer MEDICARE, SELFPAY | PROVIDERS: PCP Family Medicine; Visit Provider Internal Medicine | DX: E66.9 Obesity, unspecified (principal); E55.9 Vitamin D deficiency, unspecified; E11.9 Type 2 diabetes mellitus without complications; Z68.44 Body mass index [BMI] 60.0-69.9, adult | CPT/HCPCS: 80053; 80061; 82043; 83036 ==

== ENCOUNTER 2024-09-10 07:03 | Oncology outpatient (recurring) (ONCR) | payer MEDICARE, SELFPAY ==
[2024-09-10 07:49] LABS: Basophils # 0.1 10^3/uL (0.0-0.1); Basophils % 0.8 %; Eosinophils # 0.2 10^3/uL (0.0-0.8); Eosinophils % 2.3 %; Hematocrit 39.4 % (36-47); Lymphocytes # 2.7 10^3/uL (0.8-4.8); Lymphocytes % 33.8 %; Mean Corpuscular HGB Conc 34.3 g/dL (30-55); Mean Corpuscular Hemoglobin 31.8 pg (27-33); Mean Corpuscular Volume 92.9 fl (85-98); Mean Platelet Volume 9.9 fL (7.4-10.4); Monocytes # 0.6 10^3/uL (0.2-0.9); Monocytes % 7.3 %; Neutrophils % 55.5 %; Nucleated Red Blood Cells % 0 %; Platelet Count 279 10^3/cmm (157-399); Red Blood Count 4.24 10^6/uL (3.85-5.65); Red Cell Distribution Width 12.5 % (12.1-15.1); White Blood Count 7.92 10^3/uL (3.29-11.43)
[2024-09-10 08:19] LABS: Alanine Aminotransferase 10 U/L (0-33); Albumin Level 3.8 g/dL (3.5-5.2); Alkaline Phosphatase 88 U/L (35-105); Aspartate Amino Transferase 14 U/L (0-32); Blood Urea Nitrogen 12 mg/dL (8-23); Calcium 9.5 mg/dL (8.5-10.5); Carbon Dioxide 25 mmol/L (22-29); Chloride 104 mmol/L (98-107); Creatinine Clr Calc Pharmacy 72.3239; Ferritin 434 ng/mL (15-150); Globulin 2.8 g/dL (1.3-4.6); Glomerular Filtration Rate 70.9 mL/min (90-130); Glucose 122 mg/dL (65-115); Iron 89 ug/dL (37-145); Osmolality Calculated 293 mOsm/kg (285-295); Percent Saturation 44.7 % (20-50); Sodium 141 mmol/L (136-145); Total Bilirubin 0.4 mg/dL (0.15-1.2); Total Iron Binding Capacity 199 mcg/dl; Total Protein 6.6 g/dL (6.6-8.7); Unsaturated Iron Binding 110 ug/dL (112-347)
[2024-09-10 09:05] LABS: Vitamin B12 834 pg/mL (232-1245)
== END 2024-10-03 23:59 | disposition home or self-care (01) ==
PROVIDERS: PCP Family Medicine; Visit Provider Internal Medicine
DX: D50.0 Iron deficiency anemia secondary to blood loss (chronic) (principal); R93.2 Abnormal findings on diagnostic imaging of liver and biliary tract; Z79.899 Other long term (current) drug therapy; E11.9 Type 2 diabetes mellitus without complications; I50.32 Chronic diastolic (congestive) heart failure; G62.9 Polyneuropathy, unspecified; M06.9 Rheumatoid arthritis, unspecified
CPT/HCPCS: 36415; 80053; 82607; 82728; 83540; 83550; 85025; 99213

== ENCOUNTER → 2024-09-18 09:07 | Outpatient (BNVA) | payer MEDICARE, SELFPAY | PROVIDERS: PCP Family Medicine; Visit Provider Internal Medicine | DX: E11.59 Type 2 diabetes mellitus with other circulatory complications (principal); E11.9 Type 2 diabetes mellitus without complications; E55.9 Vitamin D deficiency, unspecified; E78.2 Mixed hyperlipidemia; Z68.44 Body mass index [BMI] 60.0-69.9, adult; G62.9 Polyneuropathy, unspecified; R29.898 Other symptoms and signs involving the musculoskeletal system | CPT/HCPCS: 99214 ==

== ENCOUNTER 2024-10-21 17:59 | Emergency (ER) | payer MEDICARE, SELFPAY ==
[2024-10-21 18:05] VITALS: BP 131/73; PULSE 52; RESP 16; TEMP 36.7; O2SAT 98; BMI 33.5
--- NOTE | 2024-10-21 18:05 | CTR_ITS ---
PROCEDURE INFORMATION: Exam: CT Head Without Contrast Exam date and time: 10/21/2024 6:56 PM Age: 69 years old Clinical indication: Injury or trauma; Fall; Blunt trauma (contusions or hematomas); Without loss of consciousness TECHNIQUE: Imaging protocol: Computed tomography of the head without contrast. Radiation optimization: All CT scans at this facility use at least one of these dose optimization techniques: automated exposure control; mA and/or kV adjustment per patient size (includes targeted exams where dose is matched to clinical indication); or iterative reconstruction. COMPARISON: CT cervical spin wo con* [id number] 10/21/2024 6:56 PM RADIATION DOSE METRICS: Total DLP (mGy-cm): 1176.4 FINDINGS: Brain: No acute infarction, hemorrhage, mass, or extra-axial fluid collection is identified. No midline shift. Chronic white matter microangiopathy and generalized atrophy. Cerebral ventricles: No hydrocephalus. Paranasal sinuses: Paranasal sinuses are grossly clear. Mastoid air cells: Mastoid air cells are grossly clear. Bones: Calvarium appears intact. Soft tissues: Unremarkable. CT/CT head wo con* [id number] IMPRESSION: No acute intracranial abnormality.
--- NOTE | 2024-10-21 18:05 | CTR_ITS ---
PROCEDURE INFORMATION: Exam: CT Cervical Spine Without Contrast Exam date and time: 10/21/2024 6:56 PM Age: 69 years old Clinical indication: Injury or trauma; Fall; Blunt trauma TECHNIQUE: Imaging protocol: Computed tomography of the cervical spine without contrast. Radiation optimization: All CT scans at this facility use at least one of these dose optimization techniques: automated exposure control; mA and/or kV adjustment per patient size (includes targeted exams where dose is matched to clinical indication); or iterative reconstruction. COMPARISON: CT angio chest PE protcl [id number] 03/07/2021 12:20 AM RADIATION DOSE METRICS: Total DLP (mGy-cm): 181.3 FINDINGS: Bones: No acute fracture. Normal alignment. No significant disc herniation. No severe spinal canal stenosis. Mild multilevel degenerative change. Lungs: Lung apices are unremarkable. Soft tissues: Unremarkable. CT/CT cervical spin wo con* [id number] IMPRESSION: No acute cervical spine fracture.
--- NOTE | 2024-10-21 18:05 | XRR_ITS ---
PROCEDURE INFORMATION: Exam: XR Left Shoulder Exam date and time: 10/21/2024 6:12 PM Age: 69 years old Clinical indication: Injury or trauma; Fall; Blunt trauma (contusions or hematomas); Shoulder; Left TECHNIQUE: Imaging protocol: Radiologic exam of the left shoulder. Views: 2 or more views. COMPARISON: CR XR chest 1V portable [id number] 10/21/2024 6:08 PM FINDINGS: Bones/joints: Old healed left 6th rib fracture. Degenerative changes in the left shoulder. No fracture or dislocation. Soft tissues: Normal. XR/XR shoulder LT min 2V* [id number] IMPRESSION: No acute findings.
--- NOTE | 2024-10-21 18:05 | XRR_ITS ---
PROCEDURE INFORMATION: Exam: XR Chest Exam date and time: 10/21/2024 6:08 PM Age: 69 years old Clinical indication: Injury or trauma; Fall; Blunt trauma (contusions or hematomas) TECHNIQUE: Imaging protocol: Radiologic exam of the chest. Views: 1 view. COMPARISON: CR XR chest 2V* [id number] 03/25/2024 5:03 PM FINDINGS: Lungs: Unremarkable. No consolidation. Pleural spaces: Unremarkable. No pleural effusion. No pneumothorax. Heart/Mediastinum: Unremarkable. No cardiomegaly. Bones/joints: Mild lumbar curvature. Mild degenerative endplate changes. New posterior right 8th rib fracture. XR/XR chest 1V portable [id number] IMPRESSION: New posterior right 8th rib fracture, possibly acute.
--- NOTE | 2024-10-21 18:05 | W.ED.FALL ---
HPI - Fall General: Chief Complaint: Fall Stated Complaint: Fall Time Seen by Provider: 10/21/24 18:00 Source: patient and EMS Mode of arrival: EMS Limitations: no limitations History of Present Illness: 69-year-old female who states that she tripped and fell just prior to arrival. She states she had landed on her left shoulder and hit her head. She complains of a headache neck pain and left shoulder pain. Denies any other injuries in the fall rates her pain a 4 out of 10 she is on blood thinners. Associated symptoms-after fall: Reports headache(s) and neck pain; Denies abdominal pain or chest pain Related Data Home Medications ?Medication ?Instructions ?Recorded ?Confirmed aspirin 81 mg tablet,delayed 81 mg PO QAM 12/09/22 10/12/24 release (Adult Aspirin Regimen) digoxin 125 mcg (0.125 mg) tablet 125 mcg PO QAM 12/09/22 10/12/24 isosorbide mononitrate 30 mg 30 mg PO QAM 12/09/22 10/12/24 tablet,extended release 24 hr rivaroxaban 20 mg tablet (Xarelto) 20 mg PO QPM 12/09/22 10/12/24 metoprolol tartrate 100 mg tablet 50 mg PO BID 12/30/23 10/12/24 diltiazem HCl 60 mg mg PO 03/25/24 10/12/24 capsule,extended release 12 hr Previous Rx's ?Medication ?Instructions ?Recorded furosemide 40 mg tablet 40 mg PO BID #60 tabs 10/03/23 omeprazole 20 mg capsule,delayed See Rx Instructions .Route 06/23/24 release .COMPLEX #90 caps albuterol sulfate 2.5 mg/3 mL 2.5 mg (3 mL) inhalation Q4H PRN 07/14/24 (0.083 %) solution for nebulization Shortness Of Breath #15 mL albuterol sulfate 90 mcg/actuation 2 inh inhalation Q6H PRN shortness 07/14/24 aerosol inhaler (ProAir HFA) of breath or wheezing #8.5 grams potassium chloride 10 mEq 10 meq PO TID #90 caps 08/18/24 capsule,extended release tirzepatide 15 mg/0.5 mL See Rx Instructions .Route 09/18/24 subcutaneous pen injector .COMPLEX #2 mL (Javier) blood sugar diagnostic (Accu-Chek #200 ea 10/20/24 Radha Plus test strips) blood-glucose meter #1 ea 10/20/24 duloxetine 60 mg capsule,delayed 60 mg PO BID 90 days #180 caps 10/20/24 release hydrocodone 5 mg-acetaminophen 325 1 tab PO Q6H PRN pain #14 tabs 10/21/24 mg tablet Allergies Allergy/AdvReac Type Severity Reaction Status Date / Time meperidine Allergy Unknown Unknown Verified 10/12/24 14:24 amobarbital Allergy Unknown Verified 10/12/24 14:24 bee venom protein (honey bee) Allergy ALGY-Anaphy Verified 10/12/24 14:24 laxis ciprofloxacin (From Cipro) Allergy Unknown Verified 10/12/24 14:24 hydroxychloroquine (From Allergy Unknown Verified 10/12/24 14:24 Plaquenil) Penicillins Allergy Unknown Verified 10/12/24 14:24 Sulfa (Sulfonamide Allergy Unknown Verified 10/12/24 14:24 Antibiotics) sulfamethoxazole (From Allergy ALGY-Rash Verified 10/12/24 14:24 Bactrim) trimethoprim (From Bactrim) Allergy ALGY-Rash Verified 10/12/24 14:24 aspartame AdvReac Unknown ADR-Headach Verified 10/12/24 14:24 e Review of Systems Const: Denies: fever(s), chills, body aches or change in appetite Eyes: Denies: blurry vision or eye discomfort ENMT: Denies: throat pain or dental pain Card: Denies: chest pain Resp: Denies: dyspnea GI: Denies: abdominal pain, nausea, vomiting or diarrhea Musc: Reports: neck pain; Denies: back pain Skin/Breast: Denies: rash Neuro: Reports: headache(s) PFS ED PFSH: Medical History Psychiatric care CHF (congestive heart failure), NYHA class III History of nonmelanoma skin cancer Enrolled in chronic care management Panic disorder Post-traumatic stress disorder, chronic Interstitial lung disease Hx MRSA infection Bilateral leg cramps Diabetic polyneuropathy Diabetes Sleep apnea Anxiety disorder CHF (congestive heart failure) Myalgia TIA (transient ischemic attack) Cardiac arrhythmia HTN (hypertension) Rheumatoid arthritis Morbid obesity CAD (coronary artery disease) Shortness of breath Diastolic dysfunction Chest pain Restless leg syndrome Pulmonary hypertension Hyperlipidemia Anemia GERD (gastroesophageal reflux disease) Hiatal hernia Surgical History S/P appendectomy S/P tubal ligation S/P knee surgery Multiple Family History Mother , age 91 Heart disease Diabetes Cancer Breast, cervical, lung Father , Age 93 - CHF Heart disease Grandmother Diabetes Maternal Social History Smoking and tobacco/nicotine status: unknown if used tobacco/nicotine Alcohol intake: current Alcohol intake frequency: holidays/special occasions only Substance/Drug Use: never Current occupation: retired Physical Exam Const: COMMON NORMALS: no acute distress, patient oriented x3 and healthy appearing HENMT: COMMON NORMALS: normocephalic HEAD & SCALP: normocephalic OTHER: abrasion to left forehead Eye: COMMON NORMALS: Equal, round and reactive pupils present and EOMs intact bilaterally PUPIL: Yes Equal, round and reactive pupils present Neck/C-Spine: OTHER: Slight tenderness posterior neck Chest: COMMONS NORMALS: normal inspection of the chest and normal palpation of entire chest wall Resp: COMMON NORMALS: normal respiratory effort, No retractions, No use of accessory muscles and clear to auscultation bilaterally AUSCULTATION: clear to auscultation bilaterally Cardio: COMMON NORMALS: regular rate, regular rhythm and No murmurs present (Cardio) RATE: regular rate RHYTHM: regular rhythm GI: COMMON NORMALS: Normal to inspection, nondistended, normoactive bowel sounds present, Soft to palpation, non-tender and no masses PALPATION: Yes Soft to palpation Extremity: NARRATIVE EXTREMITY EXAM: Tenderness over left shoulder no obvious deformity Neuro: COMMON NORMALS: patient oriented x3, moves all extremities and no focal motor deficits Psych: COMMON NORMALS: mental status grossly normal, Normal thought process present and cooperative THOUGHT PROCESS: Normal thought process present Skin: COMMON NORMALS: no rashes or lesions noted and no wounds GENERAL SKIN EXAM: no rashes or lesions noted Course Vital Signs: Vital signs: Vital Signs Temperature 98.1 F 10/21/24 18:05 Pulse Rate 67 10/21/24 19:02 Respiratory Rate 16 10/21/24 19:02 Blood Pressure 150/80 10/21/24 19:02 Pulse Oximetry 100 10/21/24 19:02 Oxygen Delivery Me thod Room Air 10/21/24 19:02 MDM - Fall Medical Decision Making Patient presents here with closed head injury after a fall imaging here is negative she is stable for discharge follow-up PCP return if worsening. Medical Records I reviewed the patient's medical records. Lab Data I reviewed the patient's lab results. Radiology Impressions Chest X-Ray 10/21/24 18:05 IMPRESSION: New posterior right 8th rib fracture, possibly acute. Shoulder X-Ray 10/21/24 18:05 IMPRESSION: No acute findings. All radiology interpretation(s) finalized by discharge Discharge Plan Discharge Patient Disposition: Home Clinical Impression: Closed head injury, Fall Condition: Stable Prescriptions: New hydrocodone-acetaminophen 5-325 mg tablet 1 tab PO Q6H PRN (Reason: pain) Qty: 14 0RF No Action potassium chloride 10 mEq capsule, extended release 10 meq PO TID Qty: 90 5RF Mounjaro 15 mg/0.5 mL pen injector See Rx Instructions .ROUTE .COMPLEX Qty: 2 6RF Dose Instruction: INJECT 15 MG SUBCUTANEOUSLY EVERY SEVEN DAYS Rx Instructions: INJECT 15 MG SUBCUTANEOUSLY EVERY SEVEN DAYS metoprolol tartrate 100 mg tablet 50 mg PO BID furosemide 40 mg tablet 40 mg PO BID Qty: 60 5RF Dose Instruction: TAKE ONE TABLET BY MOUTH TWICE A DAY FOR WEIGHT GAIN diltiazem HCl 60 mg capsule,extended release 12 hr PO omeprazole 20 mg capsule,delayed release(DR/EC) See Rx Instructions .ROUTE .COMPLEX Qty: 90 3RF Dose Instruction: TAKE ONE CAPSULE BY MOUTH IN THE MORNING ONCE DAILY Rx Instructions: TAKE ONE CAPSULE BY MOUTH IN THE MORNING ONCE DAILY albuterol sulfate 2.5 mg /3 mL (0.083 %) solution for nebulization 2.5 mg INHALATION Q4H PRN (Reason: Shortness Of Breath) Qty: 15 11RF albuterol sulfate [ProAir HFA] 90 mcg/actuation HFA aerosol inhaler 2 inh inhalation Q6H PRN (Reason: shortness of breath or wheezing) Qty: 8.5 5RF (DME) blood-glucose meter Misc See Rx Instructions .ROUTE .MEDSUPPLY Qty: 1 0RF Rx Instructions: As directed (DME) Accu-Chek Radha Plus test strp Strip See Rx Instructions .ROUTE .MEDSUPPLY Qty: 200 3RF Rx Instructions: As directed twice a day duloxetine 60 mg capsule,delayed release(DR/EC) 60 mg PO BID 90 Days Qty: 180 1RF isosorbide mononitrate 30 mg tablet extended release 24 hr 30 mg PO QAM digoxin 125 mcg (0.125 mg) tablet 125 mcg PO QAM aspirin [Adult Aspirin Regimen] 81 mg tablet,delayed release (DR/EC) 81 mg PO QAM Xarelto 20 mg tablet 20 mg PO QPM Discharge Orders: Discharge ED (Routine); Ordered 10/21/24 Ordered By: Aaron Parikh Referrals: Lacho Etienne DO [Primary Care Provider, [facility]] - 4-7 days Discharge Diet: Advance as tolerated Discharge Activity: Resume usual activity Patient Instructions: Head Injury (ED) Print Language: Romansh Coding Level of Care Code ED Pie Maker for Shaun Ocampo
--- NOTE | 2024-10-21 18:57 | PC.NURSE ---
report given to Nahomi Nowak RN @[phone]
[2024-10-21 19:02] VITALS: BP 150/80; PULSE 67; RESP 16; O2SAT 100
[2024-10-21] MEDS: HYDROcodone-acetaminophen 5-325 mg Tablet 1 TAB PO (19:47)
[2024-10-21 20:15] VITALS: BP 146/88; PULSE 72; RESP 16; O2SAT 95
== END 2024-10-21 20:16 | disposition home or self-care (01) ==
PROVIDERS: Emergency Provider Emergency Medicine; PCP Family Medicine
DX: S09.8XXA Other specified injuries of head, initial encounter (principal); W19.XXXA Unspecified fall, initial encounter; Z86.73 Personal history of transient ischemic attack (TIA), and cerebral infarction without residual deficits; Z85.828 Personal history of other malignant neoplasm of skin; E78.5 Hyperlipidemia, unspecified; I25.10 Atherosclerotic heart disease of native coronary artery without angina pectoris; I11.0 Hypertensive heart disease with heart failure; I50.9 Heart failure, unspecified
CPT/HCPCS: 70450; 71045; 72125; 73030; 99284; J9999

== ENCOUNTER → 2024-12-01 10:19 | Outpatient (BNVA) | payer MEDICARE, SELFPAY | PROVIDERS: PCP Family Medicine; Visit Provider Family Medicine | DX: R30.0 Dysuria (principal) | CPT/HCPCS: 81000 ==

== ENCOUNTER → 2025-02-10 16:32 | Outpatient (BNVA) | payer MEDICARE, SELFPAY | PROVIDERS: PCP Family Medicine; Visit Provider Nurse Practitioner Family | DX: R30.0 Dysuria (principal) | CPT/HCPCS: 81000; 87077; 87086; 87184 ==

== ENCOUNTER → 2025-03-10 11:27 | Outpatient (BNVA) | payer MEDICARE, SELFPAY | PROVIDERS: PCP Family Medicine; Visit Provider Nurse Practitioner Family | DX: Z20.818 Contact with and (suspected) exposure to other bacterial communicable diseases (principal); Z20.822 Contact with and (suspected) exposure to COVID-19; R68.89 Other general symptoms and signs; R51.9 Headache, unspecified | CPT/HCPCS: 87071; 87400; 87426; 87880 ==

== ENCOUNTER → 2025-03-23 09:17 | Outpatient (BNVA) | payer MEDICARE, SELFPAY | PROVIDERS: PCP Family Medicine; Visit Provider Internal Medicine | DX: E55.9 Vitamin D deficiency, unspecified (principal); E66.9 Obesity, unspecified; Z68.44 Body mass index [BMI] 60.0-69.9, adult; G62.9 Polyneuropathy, unspecified; I48.91 Unspecified atrial fibrillation; E11.59 Type 2 diabetes mellitus with other circulatory complications; I50.9 Heart failure, unspecified | CPT/HCPCS: 80053; 80061; 82043; 82306; 82607; 82728; 82746; 83010; 83036; 83550; 85025 ==

== ENCOUNTER 2025-04-06 10:23 | Outpatient (CLI) | payer MEDICARE, SELFPAY ==
--- NOTE | 2025-04-06 10:29 | XR_ITS ---
WS: [email or web address] Exam: XR lumbar spine 2-3V* [id number] Date/Time of Exam: 04/06/2025 10:29 AM Reason For Exam: M54.50 - Low back pain, unspecified DLP: No fracture identified. 7 mm degenerative anterolisthesis of L4 on L5. Mild degenerative anterolisthesis of L3 on L4. Mild degenerative retrolisthesis of L1 on L2. Marked degeneration of the L1-2 and L5-S1 discs. Spondylosis. Osteopenia. Facet arthropathy at all levels. Mild levoscoliosis. There are visualized bony features in the lower thoracic spine and the region of the LEFT SI joint that might indicate ankylosing spondylitis. XR/XR lumbar spine 2-3V* [id number] IMPRESSION: 1. No fracture or significant malalignment. 2. Mild degenerative anterolisthesis of L3 on L4 and L4 on L5 as above. 3. Moderate degenerative changes as noted. Some bony features that might indica te ankylosing spondylitis. See above discussion.
--- NOTE | 2025-04-06 10:29 | XR_ITS ---
WS: [id number] Exam: XR hip RT 2-3V wo/w pel* [id number] Date/Time of Exam: 04/06/2025 10:29 AM Reason For Exam: W19.XXXA - Unspecified fall, initial encounter No acute fracture. Mild degenerative change. Bony changes of diffuse idiopathic skeletal hyperostosis. XR/XR hip RT 2-3V wo/w pel* [id number] IMPRESSION: 1. No acute fracture. Mild degenerative changes.
== END 2025-04-06 10:24 | disposition home or self-care (01) ==
LOC: RAD 10:25
PROVIDERS: PCP Family Medicine; Visit Provider Family Medicine
DX: M25.551 Pain in right hip (principal); S79.911A Unspecified injury of right hip, initial encounter; W19.XXXA Unspecified fall, initial encounter; M47.816 Spondylosis without myelopathy or radiculopathy, lumbar region; M51.360 Other intervertebral disc degeneration, lumbar region with discogenic back pain only; M85.88 Other specified disorders of bone density and structure, other site; M43.16 Spondylolisthesis, lumbar region; M41.86 Other forms of scoliosis, lumbar region
CPT/HCPCS: 72100; 73502